=== PATIENT | female | born 1955 | race Caucasian/White ===

== ENCOUNTER → 2016-08-01 | Outpatient (CLI) | payer MEDICARE ==
--- NOTE | 2016-08-01 14:09 | MM ---
Reason for exam: screening (asymptomatic). Last mammogram was performed 2 years and 9 months ago. History: Patient is postmenopausal and history of other cancer. Family history of breast cancer in paternal aunt. Cyst aspiration of the right breast. Took hormonal contraceptives for 10 years beginning at age 15. Physical Findings: A clinical breast exam by your physician is recommended on an annual basis and results should be correlated with mammographic findings. MG 3D Screening Mammo W/Cad Bilateral CC and MLO view(s) were taken. Prior study comparison: November 02, 2013, bilateral MG screening mammo w CAD. June 26, 2009, bilateral digital screening mammogram. The breast tissue is heterogeneously dense. This may lower the sensitivity of mammography. Benign calcifications. There is chronic nodularity bilaterally. There is no dominant lesion. No significant changes when compared with prior studies. ASSESSMENT: Benign, BI-RAD 2 RECOMMENDATION: Routine screening mammogram of both breasts in 1 year.
== END ==
LOC: RADMAMWWP 09:07
PROVIDERS: ATTEND Family Medicine
DX: Z12.31 Encounter for screening mammogram for malignant neoplasm of breast (principal)
CPT/HCPCS: 77063; G0202

== ENCOUNTER 2016-11-05 07:51 | Day surgery (SDC) | payer MEDICARE ==
[2016-10-31 13:55] VITALS: BMI 33.5
[~2016-11-05 07:51] MED LIST: DEXAMETHASONE SOD PHOSPHATE 10 MG/ML 1 ML VIAL IV ONE; HYDROmorphone 1 MG/ML 1 ML SYRINGE IVP PRN; LACTATED RINGERS 1,000 ML IV SCH; ONDANSETRON 4 MG/2 ML VIAL IVP ONE
[2016-11-05 08:05] VITALS: RESP 16; TEMP 96.8
[2016-11-05] MEDS ORDERED: LIDOCAINE 1% 20 ML VIAL (10MG/ML) FOR IV START INTRADERMA ONE (08:06)
[2016-11-05] MEDS ORDERED: LIDOCAINE 1% INJ 10MG/ML (20 ML MDV) ONE (09:14)
[2016-11-05] MEDS ORDERED: PROPOFOL 10 MG/ML 20 ML VIAL IV ONE (09:14)
[2016-11-05] MEDS ORDERED: GLUCAGON 1 MG/ML VIAL ONE (09:14)
--- NOTE | 2016-11-05 09:45 | P.OP ---
Date of Procedure: 11/05/16 Preoperative Diagnosis: Prior history ulcerative colitis Postoperative Diagnosis: Internal hemorrhoids Procedure(s) Performed: Colonoscopy with random biopsies Implants: Anesthesia: MAC Surgeon: Lainey Kidd Estimated Blood Loss (ml): 0 IV fluids (ml): 550 Pathology: other (Multiple colon biopsies) Condition: stable Disposition: PACU Indications for Procedure: History of ulcerative colitis Operative Findings: Internal hemorrhoids, mild patchy inflammation biopsies obtained Description of Procedure: The patient was taken to the endoscopy suite and following sedation rectal exam was performed. Patient was noted to have good sphincter tone no masses. Colonoscope was passed through the anus into the rectum. Was passed through the sigmoid colon up to the splenic flexure transverse colon hepatic flexure right colon down to the area of the cecum. The bowel was somewhat spastic and glucagon was given. Some mild areas of patchy inflammation were identified and multiple random cold biopsies were obtained. Biopsy was obtained at the cecal area in the right colon transverse colon 1 at 20 cm 1 at 10 cm and a rectal biopsy. The scope was retroflexed in the rectum hemorrhoidal tissue was identified. Impression/plan: 1. Prior history of ulcerative colitis no active acute inflammation of concern identified 2. Internal hemorrhoidal tissue Plan: 1. Await results of biopsy 2. Conservative management of any hemorrhoidal symptoms
--- NOTE | 2016-11-05 09:46 | P.DS ---
Providers Attending physician: Lainey Kidd Primary care physician: Lisa Shahid Plan - Discharge Summary New Discharge Prescriptions: No Action Levothyroxine Sodium [Synthroid] 75 mcg PO HS Simvastatin [Zocor] 10 mg PO HS Atenolol [Tenormin] 25 mg PO HS PARoxetine HCL [PARoxetine HCL] 40 mg PO HS LORazepam [Lorazepam] 1 mg PO DAILY PRN PRN Reason: Anxiety LORazepam [Lorazepam] 2 mg PO HS Discharge Medication List Atenolol [Tenormin] 25 mg PO HS 07/01/14 [History] LORazepam [Lorazepam] 1 mg PO DAILY PRN 07/01/14 [History] LORazepam [Lorazepam] 2 mg PO HS 07/01/14 [History] Levothyroxine Sodium [Synthroid] 75 mcg PO HS 07/01/14 [History] PARoxetine HCL [PARoxetine HCL] 40 mg PO HS 07/01/14 [History] Simvastatin [Zocor] 10 mg PO HS 07/01/14 [History] Follow up Appointment(s)/Referral(s): Lainey Kidd MD [STAFF PHYSICIAN] - 3 Days Discharge Disposition: HOME SELF-CARE
[2016-11-05 10:07] VITALS: BP 108/58; PULSE 59
== END 2016-11-05 10:25 | disposition home or self-care (01) ==
LOC: ORWHC2ENDO 07:51
PROVIDERS: ATTEND Surgery
DX: K52.89 Other specified noninfective gastroenteritis and colitis (principal); K64.8 Other hemorrhoids; K62.89 Other specified diseases of anus and rectum; F41.9 Anxiety disorder, unspecified; Z79.899 Other long term (current) drug therapy; I10 Essential (primary) hypertension; Z88.0 Allergy status to penicillin; Z88.2 Allergy status to sulfonamides
CPT/HCPCS: 88305; 45380; J1610; J2405; J2001; J2704

== ENCOUNTER 2017-02-02 15:07 | Emergency (ER) | payer MEDICARE ==
[2017-02-02 15:22] VITALS: BP 121/68; PULSE 65; RESP 16; TEMP 98
[2017-02-02] MEDS ORDERED: CLINDAMYCIN 150 MG CAP PO STA (17:20)
--- NOTE | 2017-02-02 17:41 | ED ---
ENT HPI - General Chief complaint: Dental/Oral Stated complaint: Dental Pain Time Seen by Provider: 02/02/17 17:12 Source: patient Mode of arrival: ambulatory Limitations: no limitations - History of Present Illness Initial comments: Patient is a 61-year-old female presenting to the emergency department with chief complaint of toothache and jaw pain to her left lower mouth. Patient states she has been having toothache for approximately 2 week and saw her dentist last Friday and had tooth #18 extracted. Patient states she was placed on azithromycin and given a prescription for hydrocodone. Patient is concerned because she is still having pain in the area of where the tooth was extracted. Patient denies recent fevers, chills, nausea, vomiting, shortness of breath, chest pain, or abdominal pain. Patient denies diarrhea or constipation. Patient denies ear pain or ear fullness. Patient denies gum swelling. Patient denies trismus. Patient states she took [place] this morning with minimal relief. Patient is currently rating her dental pain 7 out of 10, described as aching. - Related Data Home Medications Medication Instructions Recorded Confirmed Atenolol [Tenormin] 25 mg PO HS 07/01/14 11/05/16 LORazepam [Lorazepam] 1 mg PO DAILY PRN 07/01/14 11/05/16 LORazepam [Lorazepam] 2 mg PO HS 07/01/14 11/05/16 Levothyroxine Sodium [Synthroid] 75 mcg PO HS 07/01/14 11/05/16 PARoxetine HCL [PARoxetine HCL] 40 mg PO HS 07/01/14 11/05/16 Simvastatin [Zocor] 10 mg PO HS 07/01/14 11/05/16 Previous Rx's Medication Instructions Recorded Clindamycin [Cleocin] 450 mg PO Q8H #29 capsule 02/02/17 HYDROcodone/APAP 5-325MG [[place] 1 tab PO Q6H PRN #12 tab 02/02/17 5-325] Allergies Allergy/AdvReac Type Severity Reaction Status Date / Time Penicillins Allergy Rash/Hives Verified 02/02/17 15:22 Sulfa (Sulfonamide Allergy Rash/Hives Verified 02/02/17 15:22 Antibiotics) venom-honey bee Allergy Anaphylaxis Verified 02/02/17 15:22 [bee venom (honey bee)] Review of Systems ROS Statement: Those systems with pertinent positive or pertinent negative responses have been documented in the HPI. ROS Other: All systems not noted in ROS Statement are negative. Past Medical History Past Medical History: Fibromyalgia, Hyperlipidemia, Hypertension, Osteoarthritis (OA), Thyroid Disorder Additional Past Medical History / Comment(s): ULCERATIVE COLITIS History of Any Multi-Drug Resistant Organisms: None Reported Past Surgical History: Tonsillectomy, Tubal Ligation, Uterine Ablation Additional Past Surgical History / Comment(s): COLONOSCOPY. EGD Past Anesthesia/Blood Transfusion Reactions: No Reported Reaction Past Psychological History: Anxiety Smoking Status: Never smoker Past Drug Use History: None Reported General Exam Limitations: no limitations General appearance: alert, in no apparent distress Head exam: Present: atraumatic, normocephalic, normal inspection Eye exam: Present: normal appearance. Absent: scleral icterus, conjunctival injection, nystagmus, periorbital swelling, periorbital tenderness ENT exam: Present: normal oropharynx, mucous membranes moist, TM's normal bilaterally, normal external ear exam Expanded Mouth exam: Present: tongue normal. Absent: drooling, trismus Teeth exam: Present: other (Tenderness to previous tooth extraction at #18. No evidence of abscess or erythema.) Throat exam: normal inspection. negative: tonsillar erythema, tonsillomegaly, tonsillar exudate, R peritonsillar mass, L peritonsillar mass Neck exam: Present: normal inspection, full ROM. Absent: tenderness, meningismus, lymphadenopathy Respiratory exam: Present: normal lung sounds bilaterally. Absent: respiratory distress, wheezes, rales, rhonchi, chest wall tenderness Cardiovascular Exam: Present: regular rate, normal rhythm, normal heart sounds. Absent: systolic murmur GI/Abdominal exam: Present: soft, normal bowel sounds. Absent: distended, tenderness Neurological exam: Present: alert, oriented X3, normal gait Psychiatric exam: Present: normal affect, normal mood Skin exam: Present: warm, dry, intact, normal color Course Vital Signs 02/02/17 15:18 Temperature 98.0 F Pulse Rate 65 Respiratory 16 Rate Blood Pressure 121/68 O2 Sat by Pulse 96 Oximetry Medical Decision Making - Medical Decision Making Dental pain to previous #18 tooth extraction. No evidence of abscess. Patient provided with prescription for clindamycin 450 mg by mouth 3 times a day for 10 days. Patient instructed to follow-up with dentist in next 24-48 hours and continue pain medicine compresses as needed. Patient instructed to return to the emergency department with any new or worsening symptoms. Patient agrees to treatment plan. Disposition Clinical Impression: Toothache Disposition: HOME SELF-CARE Condition: Good Instructions: Toothache (ED) Additional Instructions: Continue clindamycin 450 mg orally 3 times daily for 10 days. Continue Tylenol for mild pain or [place] for moderate to severe pain as needed. Apply warm compresses to area of discomfort for pain relief. Please follow-up with dentist in next 24-48 hours. Please return to the emergency department with any new or worsening symptoms. Prescriptions: Clindamycin [Cleocin] 450 mg PO Q8H #29 capsule HYDROcodone/APAP 5-325MG [[place] 5-325] 1 tab PO Q6H PRN #12 tab PRN Reason: Pain Referrals: Lisa Shahid MD [Primary Care Provider] - 1-2 days Time of Disposition: 17:24
== END 2017-02-02 17:40 | disposition home or self-care (01) ==
LOC: EC 15:07
DX: K08.89 Other specified disorders of teeth and supporting structures (principal); E78.5 Hyperlipidemia, unspecified; I10 Essential (primary) hypertension; E07.9 Disorder of thyroid, unspecified; F41.9 Anxiety disorder, unspecified; Z88.0 Allergy status to penicillin; Z88.2 Allergy status to sulfonamides; Z91.030 Bee allergy status; Z79.899 Other long term (current) drug therapy
CPT/HCPCS: 99282

== ENCOUNTER 2017-08-03 09:32 | Inpatient (IN) | payer MEDICARE ==
[2017-08-03] MEDS ORDERED: RX INFO: IV CONTRAST WAS GIVEN 1 EACH MISC MISCELLANE PRN (09:42)
[2017-08-03] MEDS ORDERED: DICYCLOMINE 10 MG/ML 2 ML AMP IM STA (09:42)
[2017-08-03] MEDS ORDERED: SODIUM CHLORIDE 0.9% 2,000 ML IV STA (09:42)
[2017-08-03] MEDS ORDERED: PANTOPRAZOLE 40 MG/10 ML VIAL IVP STA (09:42)
--- NOTE | 2017-08-03 09:54 | ED ---
Abdominal Pain HPI - General Chief Complaint: Abdominal Pain Stated Complaint: Abd Pain Time Seen by Provider: 08/03/17 09:42 Source: patient, EMS, RN notes reviewed Mode of arrival: EMS Limitations: no limitations - History of Present Illness Initial Comments: 61-year-old female presents emergency Department chief complaint of abdominal pain. Patient states that she has extensive history of ulcer colitis. Patient states she's been Pristiq over the last 7 years she did have colonoscopy approximately one year ago which showed mild inflammation. Patient states was last week she's having worsening pain, mild rectal bleeding consistent with her ulcerative colitis since her blood. Patient states that she went and saw a new DrLucrecia and requested steroids. She was placed on 40 mg of steroids that time. Patient states that his help his symptoms because a high enough dose. Patient says she is having worsening left-sided abdominal pain. No recent imaging. Patient doesn't fevers, chills. Patient doesn't this finger for a couple headache or dizziness. She's had a prior tubal ligation other abdominal surgeries. Patient has seen Dr. Huynh in the past. - Related Data Home Medications Medication Instructions Recorded Confirmed Atenolol [Tenormin] 25 mg PO HS 07/01/14 11/05/16 LORazepam [Lorazepam] 1 mg PO DAILY PRN 07/01/14 11/05/16 LORazepam [Lorazepam] 2 mg PO HS 07/01/14 11/05/16 Levothyroxine Sodium [Synthroid] 75 mcg PO HS 07/01/14 11/05/16 PARoxetine HCL [PARoxetine HCL] 40 mg PO HS 07/01/14 11/05/16 Simvastatin [Zocor] 10 mg PO HS 07/01/14 11/05/16 Previous Rx's Medication Instructions Recorded Clindamycin [Cleocin] 450 mg PO Q8H #29 capsule 02/02/17 HYDROcodone/APAP 5-325MG [[place] 1 tab PO Q6H PRN #12 tab 02/02/17 5-325] Allergies Allergy/AdvReac Type Severity Reaction Status Date / Time Penicillins Allergy Rash/Hives Verified 02/02/17 15:22 Sulfa (Sulfonamide Allergy Rash/Hives Verified 02/02/17 15:22 Antibiotics) venom-honey bee Allergy Anaphylaxis Verified 02/02/17 15:22 [bee venom (honey bee)] Review of Systems ROS Statement: Those systems with pertinent positive or pertinent negative responses have been documented in the HPI. ROS Other: All systems not noted in ROS Statement are negative. Past Medical History Past Medical History: Fibromyalgia, Hyperlipidemia, Hypertension, Osteoarthritis (OA), Thyroid Disorder Additional Past Medical History / Comment(s): ULCERATIVE COLITIS History of Any Multi-Drug Resistant Organisms: None Reported Past Surgical History: Tonsillectomy, Tubal Ligation, Uterine Ablation Additional Past Surgical History / Comment(s): COLONOSCOPY. EGD Past Anesthesia/Blood Transfusion Reactions: No Reported Reaction Past Psychological History: Anxiety Smoking Status: Never smoker Past Alcohol Use History: None Reported Past Drug Use History: Marijuana General Exam Limitations: no limitations General appearance: alert, in no apparent distress Head exam: Present: atraumatic, normocephalic, normal inspection Eye exam: Present: normal appearance, PERRL, EOMI. Absent: scleral icterus, conjunctival injection, periorbital swelling ENT exam: Present: normal exam, normal oropharynx, mucous membranes moist Neck exam: Present: normal inspection. Absent: tenderness, meningismus, lymphadenopathy Respiratory exam: Present: normal lung sounds bilaterally. Absent: respiratory distress, wheezes, rales, rhonchi, stridor Cardiovascular Exam: Present: regular rate, normal rhythm, normal heart sounds. Absent: systolic murmur, diastolic murmur, rubs, gallop, clicks GI/Abdominal exam: Present: soft, tenderness (Moderate tenderness left-sided abdominal pain), normal bowel sounds. Absent: distended, guarding, rebound, rigid Back exam: Absent: CVA tenderness (R), CVA tenderness (L) Skin exam: Present: warm, dry, intact, normal color. Absent: rash Course Vital Signs 08/03/17 09:37 Temperature 97.7 F Pulse Rate 58 L Respiratory 16 Rate Blood Pressure 138/78 O2 Sat by Pulse 96 Oximetry Medical Decision Making - Medical Decision Making 61-year-old female presented for abdominal pain. Patient has also colitis active flare. Patient be admitted for IV steroids and she failed outpatient treatment and oral steroids. Patient will have consult to Dr. Huynh and who she seen in the past. - Lab Data Result diagrams: 08/03/17 09:58 08/03/17 09:58 Lab Results 04/15/18 04/15/18 04/15/18 Range/Units 09:58 09:58 09:58 WBC 17.4 H (3.8-10.6) k/uL RBC 4.88 (3.80-5.40) m/uL Hgb 15.1 (11.4-16.0) gm/dL Hct 44.8 (34.0-46.0) % MCV 91.9 (80.0-100.0) fL MCH 31.0 (25.0-35.0) pg MCHC 33.7 (31.0-37.0) g/dL RDW 13.2 (11.5-15.5) % Plt Count 398 (150-450) k/uL Neutrophils % 82 % Lymphocytes % 11 % Monocytes % 4 % Eosinophils % 1 % Basophils % 0 % Neutrophils # 14.4 H (1.3-7.7) k/uL Lymphocytes # 2.0 (1.0-4.8) k/uL Monocytes # 0.7 (0-1.0) k/uL Eosinophils # 0.3 (0-0.7) k/uL Basophils # 0.1 (0-0.2) k/uL PT (9.0-12.0) sec INR (<1.2) APTT (22.0-30.0) sec Sodium 146 H (137-145) mmol/L Potassium 3.9 (3.5-5.1) mmol/L Chloride 102 (98-107) mmol/L Carbon Dioxide 30 (22-30) mmol/L Anion Gap 14 mmol/L BUN 20 H (7-17) mg/dL Creatinine 0.84 (0.52-1.04) mg/dL Est GFR (CKD-EPI)AfAm 88 (>60 ml/min/1.73 sqM) Est GFR (CKD-EPI)NonAf 76 (>60 ml/min/1.73 sqM) Glucose 112 H (74-99) mg/dL Plasma Lactic Acid [place] 1.7 (0.7-2.0) mmol/L Calcium 10.0 (8.4-10.2) mg/dL Total Bilirubin 0.6 (0.2-1.3) mg/dL AST 18 (14-36) U/L ALT 20 (9-52) U/L Alkaline Phosphatase 72 (38-126) U/L Total Protein 7.3 (6.3-8.2) g/dL Albumin 4.0 (3.5-5.0) g/dL Amylase 44 (30-110) U/L Lipase 110 (23-300) U/L 08/03/17 Range/Units 09:58 WBC (3.8-10.6) k/uL RBC (3.80-5.40) m/uL Hgb (11.4-16.0) gm/dL Hct (34.0-46.0) % MCV (80.0-100.0) fL MCH (25.0-35.0) pg MCHC (31.0-37.0) g/dL RDW (11.5-15.5) % Plt Count (150-450) k/uL Neutrophils % % Lymphocytes % % Monocytes % % Eosinophils % % Basophils % % Neutrophils # (1.3-7.7) k/uL Lymphocytes # (1.0-4.8) k/uL Monocytes # (0-1.0) k/uL Eosinophils # (0-0.7) k/uL Basophils # (0-0.2) k/uL PT 10.4 (9.0-12.0) sec INR 1.1 (<1.2) APTT 20.0 L (22.0-30.0) sec Sodium (137-145) mmol/L Potassium (3.5-5.1) mmol/L Chloride (98-107) mmol/L Carbon Dioxide (22-30) mmol/L Anion Gap mmol/L BUN (7-17) mg/dL Creatinine (0.52-1.04) mg/dL Est GFR (CKD-EPI)AfAm (>60 ml/min/1.73 sqM) Est GFR (CKD-EPI)NonAf (>60 ml/min/1.73 sqM) Glucose (74-99) mg/dL Plasma Lactic Acid [place] (0.7-2.0) mmol/L Calcium (8.4-10.2) mg/dL Total Bilirubin (0.2-1.3) mg/dL AST (14-36) U/L ALT (9-52) U/L Alkaline Phosphatase (38-126) U/L Total Protein (6.3-8.2) g/dL Albumin (3.5-5.0) g/dL Amylase (30-110) U/L Lipase (23-300) U/L Disposition Clinical Impression: Exacerbation of ulcerative colitis, Abdominal pain, Failure of outpatient treatment Disposition: ADMITTED IP TO THIS HOSP Condition: Stable Referrals: Stephen Liao DO [Primary Care Provider] - 1-2 days
[2017-08-03 10:15] LABS: Basophils # (A) 0.1 k/uL (0-0.2); Basophils % (A) 0 %; Eosinophils # (A) 0.3 k/uL (0-0.7); Eosinophils % (A) 1 %; HCT 44.8 % (34.0-46.0); HGB 15.1 gm/dL (11.4-16.0); Lymphocytes % (A) 11 %; MCHC 33.7 g/dL (31.0-37.0); MCV 91.9 fL (80.0-100.0); Mean Platelet Volume 7.1; Monocytes # (A) 0.7 k/uL (0-1.0); Monocytes % (A) 4 %; Neutrophils # (A) 14.4 k/uL (1.3-7.7); Neutrophils % (A) 82 %; Platelet Count 398 k/uL (150-450); RBC 4.88 m/uL (3.80-5.40); RDW 13.2 % (11.5-15.5); WBC 17.4 k/uL (3.8-10.6)
[2017-08-03 10:26] LABS: Potassium 3.9 mmol/L (3.5-5.1); Total Bilirubin 0.6 mg/dL (0.2-1.3); Total Protein 7.3 g/dL (6.3-8.2)
[2017-08-03 10:30] LABS: INR 1.1 (<1.2); Prothrombin Time 10.4 sec (9.0-12.0)
--- NOTE | 2017-08-03 10:44 | CT ---
EXAMINATION TYPE: CT abdomen pelvis w con DATE OF EXAM: 08/03/2017 REFERENCE: NONE HISTORY: abdominal pain HISTORY: ulcerative colitis, bloody stools CT DLP: 870.1 mGy Automated exposure control for dose reduction was used. TECHNIQUE: Helical acquisition through the abdomen and pelvis was obtained following the oral ingesti on of without Oral Contrast and following intravenous administration of 100 mL of Isovue 300. The aleksandar a was reformatted in axial, coronal and sagittal projections. FINDINGS: Visualized portions of the lungs are clear. There is no pleural or pericardial fluid. The heart is not enlarged. Within the abdomen, the liver is enlarged measuring 19 cm. The liver is fatty infiltrated. The spleen and gallbladder are normal. Both adrenal glands appear normal. The pancreas is unremarkable. There is a 6.6 cm simple appearing cyst seen arising from the lower pole of the left kidney. There is a smaller 9 mm low attenuating lesion in the mid polar region of the right kidney. Overall the noncy stic portion of the left kidney is moderately smaller than the right kidney. There is mild atheromatous calcification of the visualized arterial tree including the coronary arter ies. There is no significant retroperitoneal, iliac or inguinal adenopathy. The bladder is not distended. The uterus and ovaries appear normal. There is diffuse mucosal thickening throughout the colon. The appendix has a normal appearance. There is some mucosal thickening involving the distal ileum. The remainder the small bowel is of norm al caliber. No significant free fluid and no free air is seen. No bony lesion is identified. There are moderate degenerative changes in both hips. IMPRESSION: 1. DIFFUSE COLONIC MUCOSAL THICKENING. 2. SOME THICKENING OF THE DISTAL ILEUM. 3. HEPATOMEGALY AND FATTY INFILTRATION OF THE LIVER. 4. CYSTIC CHANGE WITHIN THE LEFT KIDNEY AND PROBABLE SMALL CYST IN THE RIGHT KIDNEY, TOO SMALL TO PAUL RACTERIZE.
[2017-08-03] MEDS ORDERED: methylPREDNISolone SOD SUCCI 125 MG/2 ML VIAL IV STA (11:09)
[2017-08-03] MEDS ORDERED: LORazepam 2 MG/ML INJ IV PRN (11:10)
[2017-08-03] MEDS ORDERED: NALOXONE 0.4 MG/ML 1 ML VIAL IV PRN (11:10)
[2017-08-03] MEDS: SODIUM CHLORIDE 0.9% 1,000 ML IV SCH (11:18)
[2017-08-03] MEDS: MORPHINE SULFATE 4MG/4ML SYRG IV PRN ×3 (12:34→20:54)
[2017-08-03] MEDS ORDERED: busPIRone HCl 5 MG TAB PO PRN (12:53)
[2017-08-03] MEDS ORDERED: HYDROcodone/APAP 5-325MG 1 EACH TAB PO PRN (12:54)
--- NOTE | 2017-08-03 14:45 | P.HPIM ---
History of Present Illness 61-year-old female came in with the severe crampy abdominal pain patient does have history of ulcerative colitis and was on Imuran which she hasn't been taking lately as she lost her insurance and patient is presently on Medicare. Patient was also having occasional blood in the stools patient did 3 loose stools in with severe crampy abdominal pain yesterday and today morning patient CAT scan of the abdomen did show diffuse colonic mucosal thickening along with thickening of distal ileum consistent with exacerbation of ulcerative colitis. Patient was seen recently in PCPs office was evaluated by PA, patient requested for prednisone and pain medications which are not given but blood tests were opted at that time which showed leukocytosis and she was told by PA that she needs antibiotics. Although patient does not appear to be any antibiotics at this time. Patient had any fever chills no other signs or symptoms of infection at this time. Review of Systems REVIEW OF SYSTEMS: CONSTITUTIONAL: No fever, no malaise, no fatigue. HEENT: No recent visual problems or hearing problems. Denied any sore throat. CARDIOVASCULAR: No chest pain, orthopnea, PND, no palpitations, no syncope. PULMONARY: No shortness of breath, no cough, no hemoptysis. GASTROINTESTINAL: As described in HPI NEUROLOGICAL: No headaches, no weakness, no numbness. HEMATOLOGICAL: Denies any bleeding or petechiae. GENITOURINARY: Denies any burning micturition, frequency, or urgency. MUSCULOSKELETAL/RHEUMATOLOGICAL: Denies any joint pain, swelling, or any muscle pain. ENDOCRINE: Denies any polyuria or polydipsia. The rest of the 14-point review of systems is negative. Past Medical History Past Medical History: Fibromyalgia, Hyperlipidemia, Hypertension, Osteoarthritis (OA), Thyroid Disorder Additional Past Medical History / Comment(s): ULCERATIVE COLITIS. RHEUMATIC FEVER DID NOT CAUSE CARDIAC DAMAGE History of Any Multi-Drug Resistant Organisms: None Reported Past Surgical History: Adenoidectomy, Tonsillectomy, Tubal Ligation, Uterine Ablation Additional Past Surgical History / Comment(s): COLONOSCOPY. EGD. RIGHT HAND TENDONITIS SURGERY Past Anesthesia/Blood Transfusion Reactions: No Reported Reaction Past Psychological History: Anxiety Smoking Status: Never smoker Past Alcohol Use History: None Reported Past Drug Use History: Marijuana Additional Drug Use History / Comment(s): SMOKES MARIJUANA 4-5 TIMES WEEKLY- HAS MEDICAL MARIJUANA CARD Medications and Allergies Home Medications Medication Instructions Recorded Confirmed Type Atenolol [Tenormin] 25 mg PO HS 07/01/14 08/03/17 History LORazepam [Lorazepam] 1 mg PO BID 07/01/14 08/03/17 History LORazepam [Lorazepam] 2 mg PO HS 07/01/14 08/03/17 History Levothyroxine Sodium [Synthroid] 75 mcg PO DAILY 07/01/14 08/03/17 History PARoxetine HCL [PARoxetine HCL] 60 mg PO HS 07/01/14 08/03/17 History Simvastatin [Zocor] 10 mg PO HS 07/01/14 08/03/17 History Calcium Carbonate [Tums] 500 mg PO TID PRN 08/03/17 08/03/17 History EPINEPHrine (Auto Inject) [Epipen] 0.3 mg IM ONCE PRN 08/03/17 08/03/17 History predniSONE See Taper PO DAILY 08/03/17 08/03/17 History Allergies Allergy/AdvReac Type Severity Reaction Status Date / Time Penicillins Allergy Rash/Hives Verified 08/03/17 13:03 Sulfa (Sulfonamide Allergy Rash/Hives Verified 08/03/17 13:03 Antibiotics) venom-honey bee Allergy Anaphylaxis Verified 08/03/17 13:03 [bee venom (honey bee)] Physical Exam Vitals: Vital Signs Temp Pulse Resp BP Pulse Ox 08/03/17 11:23 98.0 F 58 L 16 98/56 98 08/03/17 09:37 97.7 F 58 L 16 138/78 96 Intake and Output 08/02/17 08/03/17 08/03/17 22:59 06:59 14:59 Intake Total 225 Balance 225 Intake: Intake, IV Titration 225 Amount Sodium Chloride 0.9% 1, 225 000 ml @ 75 mls/hr IV . [id number] [facility] Rx#:[id number] Other: Weight 87 kg PHYSICAL EXAMINATION: GENERAL: The patient is alert and oriented x3, not in any acute distress. Well developed, well nourished. HEENT: Pupils are round and equally reacting to light. EOMI. No scleral icterus. No conjunctival pallor. Normocephalic, atraumatic. No pharyngeal erythema. No thyromegaly. CARDIOVASCULAR: S1 and S2 present. No murmurs, rubs, or gallops. PULMONARY: Chest is clear to auscultation, no wheezing or crackles. ABDOMEN: Soft, mild diffuse abdominal tenderness, nondistended, normoactive bowel sounds. No palpable organomegaly. MUSCULOSKELETAL: No joint swelling or deformity. EXTREMITIES: No cyanosis, clubbing, or pedal edema. NEUROLOGICAL: Gross neurological examination did not reveal any focal deficits. SKIN: No rashes. Results CBC & Chem 7: 08/03/17 09:58 08/03/17 09:58 Labs: Abnormal Lab Results - Last 24 Hours (Table) 08/03/17 08/03/17 08/03/17 Range/Units 09:58 09:58 09:58 WBC 17.4 H (3.8-10.6) k/uL Neutrophils # 14.4 H (1.3-7.7) k/uL APTT 20.0 L (22.0-30.0) sec Sodium 146 H (137-145) mmol/L BUN 20 H (7-17) mg/dL Glucose 112 H (74-99) mg/dL Thrombosis Risk Factor Assmnt - Choose All That Apply Any of the Below Risk Factors Present?: Yes Each Factor Represents 1 point: Age 41-60 years Other Risk Factors: Yes Thrombosis Risk Factor Assessment Total Risk Factor Score: 1 Thrombosis Risk Factor Assessment Level: Low Risk Assessment and Plan Plan: -Abdominal pain: Probably secondary to ulcerative colitis exacerbation patient was given IV steroids patient will be started on 20 twice a day F oral steroids , gastric body was consulted. -Fibromyalgia -Hyperlipidemia -Hypertension -Osteoarthritis -Hypothyroidism For above-mentioned chronic medical problems patient will be resumed on appropriate home medications and will continued
[2017-08-03] MEDS: NYSTATIN 100,000 UNIT/ML SUSP 500,000 UNIT/5 ML CUP PO SCH ×3 (15:32→20:57)
[2017-08-03] MEDS: PARoxetine 20 MG TAB PO SCH (20:56)
[2017-08-03] MEDS: ATORVASTATIN 10 MG TAB PO SCH (20:56)
[2017-08-03] MEDS: LEVOTHYROXINE 75 MCG TAB PO SCH (20:57)
[2017-08-03] MEDS: DICYCLOMINE 10 MG CAP PO PRN (20:59)
[2017-08-03] MEDS: predniSONE 20 MG TAB PO SCH (21:07)
[2017-08-03] MEDS: HYDROcodone/APAP 5-325MG 1 EACH TAB PO PRN (23:15)
[2017-08-03 23:27] LABS: Appearance,Urine Clear (Clear); Bilirubin,Urine Negative (Negative); Blood,Urine Negative (Negative); Color,Urine Yellow; Glucose,Urine (UA) Negative (Negative); Ketones,Urine Negative (Negative); Leukocyte Esterase,Urine Negative (Negative); Nitrite,Urine Negative (Negative); Protein,Urine Trace (Negative); Specific Gravity,Urine 1.043 (1.001-1.035); Urobilinogen,Urine <2.0 mg/dL (<2.0)
[2017-08-04] MEDS ORDERED: ACETAMINOPHEN TAB 325 MG TAB PO PRN (02:06)
[2017-08-04] MEDS: HYDROcodone/APAP 5-325MG 1 EACH TAB PO PRN ×4 (02:25→20:01)
[2017-08-04] MEDS: SODIUM CHLORIDE 0.9% 1,000 ML IV SCH ×2 (02:28→14:23)
--- NOTE | 2017-08-04 04:50 | P.CONS ---
History of Present Illness - Reason for Consult Consult date: 08/03/17 Colitis - History of Present Illness The patient is a 61-year-old female who presented to the emergency room with abdominal pains, loose stools and occasional bleeding. The patient had history of colitis but was knocked on any treatment until recently when she was started on steroids by her primary physician. The patient was not given pain medications and as she continued to have cramps and loose stools with intermittent bleeding, she came to the emergency room for evaluation. CT of the abdomen showed diffuse thickening of the colon and terminal ileum. The patient has not been on any treatment over the years and has not had regular follow-up because of insurance issues. She had a colonoscopy in October of last year that showed mild changes with biopsies in various areas of the colon showing minimal changes. The patient denied nausea, vomiting, hematemesis or melena. She has fibromyalgia but is not experiencing any extraintestinal manifestations of inflammatory bowel disease. There is history of for antibiotic use around 3 months ago for tooth infection. She had no bowel movement since she was admitted early this morning. Review of Systems Constitutional: Denies fever, chills, sweats, weight gain, or loss. HEENT: Negative for migraines, blurred vision or loss, earaches, drainage, tinnitus, oral mucosal lesions, dysphagia, or odynophagia. CARDIAC: Negative for chest pain, arrhythmias, or palpitation. RESPIRATORY: Negative for shortness of breath, hemoptysis, cough, or sputum production. GI: See HPI for pertinent findings. : Negative for hematuria, urgency, frequency, polyuria, or dysuria. MUSCULOSKELETAL: Negative for muscle aches, swelling, arthritis, and arthralgias. NEUROLOGIC: Negative for stroke or TIA. ENDOCRINE: Negative for thyroid problems. SKIN: Negative for rash or itching. PSYCHIATRIC: Negative history for depression and anxiety Past Medical History Past Medical History: Fibromyalgia, Hyperlipidemia, Hypertension, Osteoarthritis (OA), Thyroid Disorder Additional Past Medical History / Comment(s): ULCERATIVE COLITIS. RHEUMATIC FEVER DID NOT CAUSE CARDIAC DAMAGE History of Any Multi-Drug Resistant Organisms: None Reported Past Surgical History: Adenoidectomy, Tonsillectomy, Tubal Ligation, Uterine Ablation Additional Past Surgical History / Comment(s): COLONOSCOPY. EGD. RIGHT HAND TENDONITIS SURGERY Past Anesthesia/Blood Transfusion Reactions: No Reported Reaction Past Psychological History: Anxiety Smoking Status: Never smoker Past Alcohol Use History: None Reported Past Drug Use History: Marijuana Additional Drug Use History / Comment(s): SMOKES MARIJUANA 4-5 TIMES WEEKLY- HAS MEDICAL MARIJUANA CARD Medications and Allergies Home Medications Medication Instructions Recorded Confirmed Type Atenolol [Tenormin] 25 mg PO HS 07/01/14 08/03/17 History LORazepam [Lorazepam] 1 mg PO BID 07/01/14 08/03/17 History LORazepam [Lorazepam] 2 mg PO HS 07/01/14 08/03/17 History Levothyroxine Sodium [Synthroid] 75 mcg PO DAILY 07/01/14 08/03/17 History PARoxetine HCL [PARoxetine HCL] 60 mg PO HS 07/01/14 08/03/17 History Simvastatin [Zocor] 10 mg PO HS 07/01/14 08/03/17 History Calcium Carbonate [Tums] 500 mg PO TID PRN 08/03/17 08/03/17 History EPINEPHrine (Auto Inject) [Epipen] 0.3 mg IM ONCE PRN 08/03/17 08/03/17 History predniSONE See Taper PO DAILY 08/03/17 08/03/17 History Allergies Allergy/AdvReac Type Severity Reaction Status Date / Time Penicillins Allergy Rash/Hives Verified 08/03/17 13:03 Sulfa (Sulfonamide Allergy Rash/Hives Verified 08/03/17 13:03 Antibiotics) venom-honey bee Allergy Anaphylaxis Verified 08/03/17 13:03 [bee venom (honey bee)] Physical Exam Vitals: Vital Signs Temp Pulse Pulse Resp BP BP Pulse Ox 08/03/17 15:00 98.3 F 47 L 16 96/58 96 08/03/17 12:00 97.2 F L 49 L 16 110/60 97 08/03/17 11:23 98.0 F 58 L 16 98/56 98 08/03/17 09:37 97.7 F 58 L 16 138/78 96 Intake and Output 08/03/17 08/03/17 08/03/17 06:59 14:59 22:59 Intake Total 225 Balance 225 Intake: Intake, IV Titration 225 Amount Sodium Chloride 0.9% 1, 225 000 ml @ 75 mls/hr IV . [id number] [facility] Rx#:[id number] Other: Weight 87 kg General appearance: The patient is alert, oriented, in no acute distress. HET: Head is normocephalic and atraumatic. Conjunctivae pink, sclerae not icteric. Pupils are equal and reactive. Oropharynx is clear without lesions. Neck: Supple without lymphadenopathy. Trachea midline. Heart: S1 S2. Regular rate and rhythm. Lungs: No crackles or wheezes are heard. Abdomen: Soft, nondistended bowel sounds present. Mild direct tenderness, diffuse, but no guarding or rebound. No palpable organomegaly or masses. Extremities: Normal skin color and turgor. No cyanosis, rash, ulceration, clubbing, or edema. Radial and pedal pulses are 2/4 bilaterally. Neurological: No focal deficits. Strength and sensation are grossly intact. Results CBC & Chem 7: 08/03/17 09:58 08/03/17 09:58 Labs: Abnormal Lab Results - Last 24 Hours (Table) 08/03/17 08/03/17 08/03/17 Range/Units 09:58 09:58 09:58 WBC 17.4 H (3.8-10.6) k/uL Neutrophils # 14.4 H (1.3-7.7) k/uL APTT 20.0 L (22.0-30.0) sec Sodium 146 H (137-145) mmol/L BUN 20 H (7-17) mg/dL Glucose 112 H (74-99) mg/dL Assessment and Plan Assessment: The presentation of this patient and her history are consistent with exacerbation of chronic ulcerative colitis. With the wall thickness of the terminal ileum in addition to the colon on CT, the possibility of Crohn's disease should be kept in mind. Other etiology, including infectious causes, superimposed on chronic inflammatory bowel disease should be considered as well. Plan: Agree with your current management. Will order stool studies if she has further diarrhea. I would consider repeat colonoscopy for evaluation of the colon and terminal ileum and to guide her therapy based on her course in the next day or 2.
[2017-08-04 06:18] VITALS: RESP 16
[2017-08-04] MEDS: predniSONE 20 MG TAB PO SCH ×2 (08:27→21:54)
[2017-08-04] MEDS: PANTOPRAZOLE 40 MG/10 ML VIAL IV SCH (08:27)
[2017-08-04] MEDS: NYSTATIN 100,000 UNIT/ML SUSP 500,000 UNIT/5 ML CUP PO SCH ×4 (08:27→21:54)
[2017-08-04] MEDS ORDERED: MORPHINE ORAL SOLN 10 MG/5 ML CUP PO PRN (09:08)
[2017-08-04 09:11] LABS: Basophils % (A) 0 %; Eosinophils # (A) 0.2 k/uL (0-0.7); Eosinophils % (A) 1 %; HCT 42.5 % (34.0-46.0); HGB 13.6 gm/dL (11.4-16.0); Lymphocytes % (A) 5 %; MCV 93.5 fL (80.0-100.0); Mean Platelet Volume 7.3; Monocytes # (A) 0.4 k/uL (0-1.0); Monocytes % (A) 2 %; Neutrophils % (A) 92 %; Platelet Count 361 k/uL (150-450); RBC 4.54 m/uL (3.80-5.40); RDW 13.2 % (11.5-15.5); WBC 21.6 k/uL (3.8-10.6)
[2017-08-04 09:40] LABS: Anion Gap 12 mmol/L; Blood Urea Nitrogen 16 mg/dL (7-17); Calcium 9.2 mg/dL (8.4-10.2); Carbon Dioxide 26 mmol/L (22-30); Chloride 107 mmol/L (98-107); Glucose 153 mg/dL (74-99); Magnesium 2.2 mg/dL (1.6-2.3); Potassium 4.5 mmol/L (3.5-5.1); Sodium 145 mmol/L (137-145)
--- NOTE | 2017-08-04 10:32 | P.PN ---
Subjective Progress Note Date: 08/04/17 Principal diagnosis: Bloody diarrhea abdominal pain Admitted with abdominal pain bloody diarrhea history of ulcerative colitis. No further bowel movements since yesterday morning. Stool studies not collected secondary to absence of diarrhea. White count 21.6. Receiving intravenous steroids as well as oral prednisone twice daily. Hemoglobin this morning 13.6. Minimal abdominal discomfort. Last colonoscopy 10 months ago biopsies report mild changes in various areas of the colon. There is a history of familial Crohn's disease; her son. Patient was experiencing decreased heart rate in the 30s after receiving intravenous morphine; morphine has been discontinued. Heart rate in the high 40s this morning. Presently denies chest pain or shortness of breath. Objective - Vital Signs Vital signs: Vital Signs Temp 96.5 F L 08/04/17 05:33 Pulse 38 L 08/04/17 05:33 Resp 16 08/04/17 05:33 BP 113/60 08/04/17 05:33 Pulse Ox 93 L 08/04/17 05:33 Intake & Output 08/03/17 08/04/17 08/04/17 18:59 06:59 18:59 Intake Total 225 Balance 225 Weight 87 kg Intake: Intake, IV Titration 225 Amount Sodium Chloride 0.9% 1, 225 000 ml @ 75 mls/hr IV . [id number] [facility] Rx#:[id number] Other: Voiding Method Toilet # Voids 3 - Exam General appearance: The patient is alert, oriented, in no acute distress. HET: Head is normocephalic and atraumatic. Pupils are equal and reactive. Oropharynx is clear without lesions. Neck: Supple without lymphadenopathy. Trachea midline. Heart: S1 S2. Regular rate and rhythm. Lungs: No crackles or wheezes are heard. Abdomen: Soft, mild tenderness bilateral lower abdomen, nondistended with bowel sounds. No peritoneal signs. No palpable organomegaly or masses. Extremities: Normal skin color and turgor. No cyanosis, rash, ulceration, clubbing, or edema. Radial and pedal pulses are 2/4 bilaterally. Neurological: No focal deficits. Strength and sensation are grossly intact. - Labs CBC & Chem 7: 08/04/17 08:54 08/04/17 08:54 Labs: Abnormal Lab Results - Last 24 Hours (Table) 08/03/17 08/03/17 08/03/17 Range/Units 09:58 09:58 23:17 WBC (3.8-10.6) k/uL Neutrophils # (1.3-7.7) k/uL APTT 20.0 L (22.0-30.0) sec Sodium 146 H (137-145) mmol/L BUN 20 H (7-17) mg/dL Glucose 112 H (74-99) mg/dL C-Reactive Protein (<10.0) mg/L Ur Specific Ma[place] 1.043 H (1.001-1.035) Urine Protein Trace H (Negative) 08/04/17 08/04/17 08/04/17 Range/Units 08:54 08:54 08:54 WBC 21.6 H (3.8-10.6) k/uL Neutrophils # 20.0 H (1.3-7.7) k/uL APTT (22.0-30.0) sec Sodium (137-145) mmol/L BUN (7-17) mg/dL Glucose 153 H (74-99) mg/dL C-Reactive Protein 16.8 H (<10.0) mg/L Ur Specific [place] (1.001-1.035) Urine Protein (Negative) Assessment and Plan (1) Abdominal pain Narrative/Plan: Possible exacerbation of ulcerative colitis with superimposed viral possible infectious gastroenteritis. The possibility of underlying Crohn's disease cannot be entirely excluded with distal small bowel changes inflammation on CT. Current Visit: Yes Status: Acute Code(s): R10.9 - UNSPECIFIED ABDOMINAL PAIN SNOMED Code(s): 93370956 (2) Hematochezia Current Visit: Yes Status: Acute Code(s): K92.1 - MELENA SNOMED Code(s): 466350143 (3) Exacerbation of ulcerative colitis Current Visit: Yes Status: Acute Code(s): K51.90 - ULCERATIVE COLITIS, UNSPECIFIED, WITHOUT COMPLICATIONS SNOMED Code(s): 260313980 (4) Bradycardia Narrative/Plan: Possible morphine-induced. Current Visit: Yes Status: Acute Code(s): R00.1 - BRADYCARDIA, UNSPECIFIED SNOMED Code(s): 34833113 Plan: 1. Recommend inpatient colonoscopy with terminal ileum biopsies rule out active IBD/Crohn's disease. 2. CRP sed rate. 3. Continue clear liquid diet nothing by mouth after midnight. 4. Continue with oral prednisone for now further recommendations forthcoming after endoscopic evaluation. The insurance rater has discussed the risks, benefits and alternative therapies for the above-mentioned procedure and for both sedation/analgesia as well as necessary blood product administration, if indicated, as they pertain to this patient. The patient has indicated understanding and acceptance of the risks and procedures discussed. Assessment and plan a care discussed with Dr. Balderrama
[2017-08-04] MEDS: ONDANSETRON 4 MG/2 ML VIAL IVP PRN ×2 (14:37→20:01)
[2017-08-04] MEDS ORDERED: PEG 3350-NA SULF,BICARB,CL/KCL 4,000 ML BOTTLE PO ONE (15:00)
[2017-08-04] MEDS: DICYCLOMINE 10 MG CAP PO PRN (18:36)
--- NOTE | 2017-08-04 19:46 | PN ---
PROGRESS NOTE DATE OF SERVICE: August 04, 2017. PRESENTING COMPLAINT: Abdominal pain. INTERVAL HISTORY: This is a patient presented with ulcerative colitis, increasing stool, but no more diarrhea since admission. Patient due for a colonoscopy tomorrow. CT scan showed thickening of the colon. The patient does get pain in different joints. REVIEW OF SYSTEMS: Done for constitutional, cardiovascular, GI, pulmonary, musculoskeletal and relevant findings as above. The patient does include a hand, hips and elbows. CURRENT MEDICATIONS: Reviewed that include: Oral prednisone and IV fluids. PHYSICAL EXAMINATION: Afebrile. Pulse 40, respirations 16, blood pressure 113/60, pulse ox 93% on room air. General appearance: Average build, lying in bed, comfortable. Eyes: Pupils equal, conjunctivae normal. HEENT: External appearance of nose and ears normal. Oral cavity normal. Neck JVD not raised. Mass not palpable. Respiratory effort lungs are clear. Cardiovascular 1st and 2nd sounds normal. No edema. ABDOMEN: Soft. Some diffuse tenderness. No guarding, rigidity. Liver and spleen not palpable. Psychiatry: Alert and oriented times three. Mood and affect normal. Musculoskeletal: No evidence of obvious inflammation, especially in the hands. INVESTIGATIONS: White count 21.6, potassium 4.5. ASSESSMENT: 1. Possible acute ulcerative colitis exacerbation. Patient is on oral steroids. Awaiting colonoscopy. 2. Leukocytosis likely from steroids. 3. Hyperlipidemia. 4. Essential hypertension. 5. Hypothyroid. 6. Anxiety, not otherwise specified. PLAN: Continue current medication and treatment plan. Care was discussed with the patient. Await colonoscopy. MMODL / IJN: [id number] /
[2017-08-04] MEDS ORDERED: MIDAZOLAM 2 MG/2 ML VIAL IV PRN (19:50)
[2017-08-04] MEDS ORDERED: fentaNYL (PF) 50 MCG/ML 2 ML AMP IV PRN (19:50)
[2017-08-04] MEDS ORDERED: BISACODYL 5 MG TABLET.DR PO STA (20:55)
[2017-08-04] MEDS: LACTATED RINGERS 1,000 ML IV SCH (21:52)
[2017-08-04] MEDS: PARoxetine 20 MG TAB PO SCH (21:53)
[2017-08-04] MEDS: ATORVASTATIN 10 MG TAB PO SCH (21:53)
[2017-08-04] MEDS: LEVOTHYROXINE 75 MCG TAB PO SCH (21:54)
[2017-08-05] MEDS: SODIUM CHLORIDE 0.9% 1,000 ML IV SCH ×2 (05:52→17:50)
[2017-08-05] MEDS: PANTOPRAZOLE 40 MG/10 ML VIAL IV SCH (08:04)
[2017-08-05] MEDS: ONDANSETRON 4 MG/2 ML VIAL IVP PRN (08:04)
[2017-08-05] MEDS: HYDROcodone/APAP 5-325MG 1 EACH TAB PO PRN ×2 (12:16→17:49)
[2017-08-05] MEDS: NYSTATIN 100,000 UNIT/ML SUSP 500,000 UNIT/5 ML CUP PO SCH ×4 (14:44→21:31)
--- NOTE | 2017-08-05 15:23 | PN ---
PROGRESS NOTE DATE OF SERVICE: 08/05/2017 PRESENTING COMPLAINT: Abdominal pain. INTERVAL HISTORY: Patient presented with abdominal pain, diarrhea, felt to be flare-up of IBD, diarrhea actually settled down, but getting a bowel prep, hence having diarrhea from the same. Abdominal pain is actually better. Some pain in the joints. Awaiting colonoscopy this morning when I saw the patient. REVIEW OF SYSTEMS: Done for constitutional, cardiovascular, GI, pulmonary, musculoskeletal; relevant findings as above. CURRENT MEDICATIONS: Reviewed that include oral prednisone. PHYSICAL EXAMINATION: Temperature 98.5, pulse 46, respirations 16, blood pressure 136/65, pulse ox 95% on room air. GENERAL APPEARANCE: Lying in bed, tired-appearing. EYES: Pupils equal, conjunctivae normal. HEENT: External appearance of nose and ears normal, oral cavity normal. NECK: JVD not raised. Mass not palpable. RESPIRATORY: Effort normal. Lungs are clear. CARDIOVASCULAR: First and second sounds normal. No edema. ABDOMEN: Soft, minimal diffuse tenderness. No guarding, rigidity. Liver and spleen not palpable. PSYCHIATRY: Alert and oriented x3. Mood and affect normal. INVESTIGATIONS: White count 21.6, potassium 4.5. BUN and creatinine are normal. ASSESSMENT: 1. Possible acute IBD flare up, pending colonoscopy on oral prednisone. 2. Leukocytosis from steroids. 3. Hyperlipidemia. 4. Essential hypertension. 5. Hypothyroid. 6. Anxiety, not otherwise specified. PLAN: Care was discussed with the patient. Await results of colonoscopy and go from there. MMODL / ANCAN: [id number] /
[2017-08-05] MEDS ORDERED: PROPOFOL 10 MG/ML 20 ML VIAL IV ONE (16:04)
[2017-08-05] MEDS ORDERED: ONDANSETRON 4 MG/2 ML VIAL ONE (16:04)
[2017-08-05] MEDS ORDERED: IV FLUID CONTINUATION 500 ML IV ONE (16:05)
--- NOTE | 2017-08-05 16:40 | P.PCN ---
Date of Procedure: 08/05/17 Procedure(s) Performed: Procedure: Colonoscopy and biopsy. Preoperative diagnosis: Abdominal pain, diarrhea and abnormal CT and history of colitis. Postoperative diagnosis: 1. Diffuse colitis with multiple ulcers covered with white exudate surrounded by normal-appearing mucosa raising the possibility of infectious colitis or Crohn's colitis. 2. Terminal ileum not involved. 3. Biopsies obtained. Preparation: GoLYTELY prep. Sedation: Was provided by anesthesia. Brief clinical history: The patient is a 61-year-old female who presented to the emergency room with abdominal pains, loose stools and occasional bleeding. The patient had history of colitis but was not on any treatment until recently when she was started on steroids by her primary physician. The patient was not given pain medications and as she continued to have cramps and loose stools with intermittent bleeding, she came to the emergency room for evaluation. CT of the abdomen showed diffuse thickening of the colon and terminal ileum. The patient has not been on any treatment over the years and has not had regular follow-up because of insurance issues. She had a colonoscopy in October of last year that showed mild changes with biopsies in various areas of the colon showing minimal changes. The patient denied nausea, vomiting, hematemesis or melena. She has fibromyalgia but is not experiencing any extraintestinal manifestations of inflammatory bowel disease. There is history of for antibiotic use around 3 months ago for tooth infection. Her C difficile test was negative. Other details are summarized in the history and physical and dictated consultations and progress notes. Procedure: With the patient on her left lateral decubitus position and after informed consent and adequate sedation, the perianal area was inspected and it did not show any fissures or fistulas. There were no masses felt on digital rectal examination. The Olympus CFQ 160L video colonoscope was then inserted in the rectum and the usual fashion and advanced to the cecum. I intubated the ileocecal valve and examined the terminal ileum. Terminal ileum was not involved. The colon in its entirety was involved with multiple scattered ulcerations of various sizes covered with exudate with normal appearing intervening mucosa. Inserted in areas the exudates mimic the appearance of C. difficile colitis. There was no spontaneous bleeding. No polyps or tumors were seen. I obtained random biopsies from the colon targeting the ulcerations. I retroflexed the endoscope before the endoscope was withdrawn. The patient tolerated the procedure well. Plan: Will await biopsy results. The patient is already on steroids. Will make further plans based on her course and pathology results. Additional stool studies will be considered.
[2017-08-05] MEDS: predniSONE 20 MG TAB PO SCH ×2 (17:50→21:31)
[2017-08-05] MEDS: LACTATED RINGERS 1,000 ML IV SCH (21:26)
[2017-08-05] MEDS: ATORVASTATIN 10 MG TAB PO SCH (21:31)
[2017-08-05] MEDS: PARoxetine 20 MG TAB PO SCH (21:31)
[2017-08-05] MEDS: LEVOTHYROXINE 75 MCG TAB PO SCH (21:31)
[2017-08-06 05:15] VITALS: PULSE 43
[2017-08-06 06:26] VITALS: BP 133/71; TEMP 98
[2017-08-06] MEDS ORDERED: PANTOPRAZOLE 40 MG TABLET PO SCH (07:30)
[2017-08-06] MEDS: NYSTATIN 100,000 UNIT/ML SUSP 500,000 UNIT/5 ML CUP PO SCH ×2 (08:49→12:53)
[2017-08-06] MEDS: SODIUM CHLORIDE 0.9% 1,000 ML IV SCH (08:49)
[2017-08-06] MEDS ORDERED: predniSONE 20 MG TAB PO SCH (09:00)
--- NOTE | 2017-08-06 09:30 | P.PN ---
Subjective Progress Note Date: 08/06/17 Principal diagnosis: Bloody diarrhea abdominal pain Admitted with abdominal pain bloody diarrhea history of ulcerative colitis. Status post colonoscopy yesterday with findings of diffuse colitis with multiple ulcers covered with white exudate surrounding by normal appearing mucosa raising the possibility of Crohn's colitis possible infectious colitis. Terminal ileum not involved. Biopsies pending. Presently she feels well. Tolerating full liquid diet. Afebrile. CBC pending. Receiving oral steroids. Objective - Vital Signs Vital signs: Vital Signs Temp 98.0 F 08/06/17 06:05 Pulse 43 L 08/06/17 06:05 Resp 16 08/06/17 06:05 BP 133/71 08/06/17 06:05 Pulse Ox 95 08/06/17 06:05 Intake & Output 08/05/17 08/06/17 08/06/17 18:59 06:59 18:59 Intake Total 900 600 Balance 900 600 Intake: IV 300 Intake, IV Titration 600 600 Amount Sodium Chloride 0.9% 1, 600 600 000 ml @ 75 mls/hr IV . [id number] [facility] Rx#:[id number] Other: # Voids 2 - Exam General appearance: The patient is alert, oriented, in no acute distress. HET: Head is normocephalic and atraumatic. Pupils are equal and reactive. Oropharynx is clear without lesions. Neck: Supple without lymphadenopathy. Trachea midline. Heart: S1 S2. Regular rate and rhythm. Lungs: No crackles or wheezes are heard. Abdomen: Soft, mild tenderness bilateral lower abdomen, nondistended with bowel sounds. No peritoneal signs. No palpable organomegaly or masses. Extremities: Normal skin color and turgor. No cyanosis, rash, ulceration, clubbing, or edema. Radial and pedal pulses are 2/4 bilaterally. Neurological: No focal deficits. Strength and sensation are grossly intact. - Labs CBC & Chem 7: 08/04/17 08:54 08/04/17 08:54 Assessment and Plan (1) Abdominal pain Narrative/Plan: History of ulcerative colitis suspect exacerbation of inflammatory bowel disease possible Crohn's colitis possible superimposed infectious colitis status post colonoscopy evaluation with biopsies terminal ileum noninvolved. Current Visit: Yes Status: Acute Code(s): R10.9 - UNSPECIFIED ABDOMINAL PAIN SNOMED Code(s): 03656097 (2) Hematochezia Current Visit: Yes Status: Acute Code(s): K92.1 - MELENA SNOMED Code(s): 514510603 (3) Exacerbation of ulcerative colitis Current Visit: Yes Status: Acute Code(s): K51.90 - ULCERATIVE COLITIS, UNSPECIFIED, WITHOUT COMPLICATIONS SNOMED Code(s): 075097678 (4) Bradycardia Current Visit: Yes Status: Acute Code(s): R00.1 - BRADYCARDIA, UNSPECIFIED SNOMED Code(s): 49459715 Plan: 1. Low residue diet as tolerated. Recommend prednisone 40 mg daily with 5 mg taper every 7 days on discharge prescription provided. Follow-up in office in 2 -3 weeks to discuss biopsy results. Discharge per medicine if WBC is improved. Assessment and plan a care discussed with Dr. Wynn.
[2017-08-06 10:13] LABS: Basophils % (A) 0 %; Eosinophils % (A) 0 %; HCT 40.5 % (34.0-46.0); HGB 13.6 gm/dL (11.4-16.0); Lymphocytes # (A) 0.9 k/uL (1.0-4.8); Lymphocytes % (A) 6 %; MCH 30.8 pg (25.0-35.0); MCHC 33.5 g/dL (31.0-37.0); MCV 92.1 fL (80.0-100.0); Mean Platelet Volume 6.9; Monocytes # (A) 0.5 k/uL (0-1.0); Monocytes % (A) 3 %; Neutrophils # (A) 12.5 k/uL (1.3-7.7); Neutrophils % (A) 90 %; Platelet Count 319 k/uL (150-450); RDW 13.1 % (11.5-15.5)
--- NOTE | 2017-08-06 23:51 | DS ---
DISCHARGE SUMMARY DATE OF ADMISSION: 08/03/2017. DATE OF DISCHARGE: 08/06/2017. FINAL DIAGNOSES: 1. Acute inflammatory bowel disease flare up. 2. Leukocytosis from steroids. 3. Hyperlipidemia. 4. Essential hypertension. 5. Hypothyroidism. 6. Anxiety, not otherwise specified. CONSULTATIONS: Dr. Wynn from GI. HOSPITAL COURSE: This patient with known diagnosis ulcerative colitis. Did follow up with Dr. Cristina in the past, did not followup for the last few years, presented with acute abdominal pain and diarrhea. The diarrhea did resolve with steroids. Colonoscopy did show a lot of inflammation. Biopsy was done, results were pending. The patient is tolerating a full liquid diet today. I did talk to Gretchen from . The patient is okay to be discharged. She is very keen to go home. Will follow up with GI as an outpatient. On exam, abdomen soft, nontender. Lungs are clear. Hemoglobin stable at 13.6. DISCHARGE MEDICATIONS: 1. Ativan 1 mg p.o. b.i.d. 2 mg at night. 2. Synthroid 75 mcg a day. 3. Paxil 60 mg at bedtime. 4. Zocor 10 mg at bedtime. 5. Tums 500 mg p.o. t.i.d. p.r.n. 6. EpiPen p.r.n. 7. Bentyl 10 mg t.i.d. p.r.n. 8. Zestoretic 09/04.5 one tablet p.o. daily. 9. Prednisone taper per GI. 10.The patient's atenolol was discontinued because of bradycardia. FOLLOWUP: 1. Follow up with Dr. Wynn on 08/21/2017. 2. Follow up with Dr. Liao on August 08, 2017. MMODL / IJN: [id number] /
== END 2017-08-06 14:43 | disposition home or self-care (01) | DRG 387 ==
LOC: EC 09:32 → 4MS4W 11:04
PROVIDERS: ADMIT Hospitalist; ATTEND Hospitalist
PROC: 0DBE8ZX Excision of Large Intestine, Via Natural or Artificial Opening Endoscopic, Diagnostic (ICD-10-PCS; principal; 2017-08-05 14:35)
DX: K51.90 Ulcerative colitis, unspecified, without complications (principal); D72.829 Elevated white blood cell count, unspecified; E03.9 Hypothyroidism, unspecified; E78.5 Hyperlipidemia, unspecified; I10 Essential (primary) hypertension; M19.91 Primary osteoarthritis, unspecified site; F41.9 Anxiety disorder, unspecified; M79.7 Fibromyalgia; R00.1 Bradycardia, unspecified; T38.0X5A Adverse effect of glucocorticoids and synthetic analogues, initial encounter; Z79.890 Hormone replacement therapy; Z79.899 Other long term (current) drug therapy; Z98.51 Tubal ligation status; Z88.0 Allergy status to penicillin; Z88.2 Allergy status to sulfonamides; Z91.030 Bee allergy status
CPT/HCPCS: 36415; 45380; 74177; 80048; 80053; 81003; 82150; 83605; 83690; 83735; 85025; 85610; 85652; 85730; 86140; 87324; 88305; 89055; 96361; 96372; 96374; 96375; 99285

== ENCOUNTER → 2017-08-13 | Outpatient (CLI) | payer MEDICARE ==
[2017-08-13 08:54] LABS: Basophils % (A) 0 %; Eosinophils # (A) 0.2 k/uL (0-0.7); Eosinophils % (A) 1 %; HCT 52.9 % (34.0-46.0); Lymphocytes # (A) 2.9 k/uL (1.0-4.8); Lymphocytes % (A) 10 %; MCH 29.6 pg (25.0-35.0); MCHC 31.8 g/dL (31.0-37.0); MCV 92.8 fL (80.0-100.0); Mean Platelet Volume 6.7; Monocytes # (A) 0.9 k/uL (0-1.0); Monocytes % (A) 3 %; Neutrophils # (A) 23.5 k/uL (1.3-7.7); Neutrophils % (A) 85 %; Platelet Count 422 k/uL (150-450); RDW 13.3 % (11.5-15.5)
[2017-08-13 08:55] LABS: HGB 16.8 gm/dL (11.4-16.0)
[2017-08-13 09:08] LABS: WBC 27.7 k/uL (3.8-10.6)
[2017-08-13 09:12] LABS: Calcium 10.4 mg/dL (8.4-10.2); Potassium 4.4 mmol/L (3.5-5.1)
== END | disposition home or self-care (01) ==
LOC: LABWHC1 08:29
PROVIDERS: ATTEND Hospitalist
DX: K52.9 Noninfective gastroenteritis and colitis, unspecified (principal)
CPT/HCPCS: 36415; 80048; 85025

== ENCOUNTER → 2017-09-23 | Outpatient (CLI) | payer MEDICARE ==
[2017-09-23 09:36] LABS: HCT 41.5 % (34.0-46.0); MCHC 32.6 g/dL (31.0-37.0); MCV 95.1 fL (80.0-100.0); Mean Platelet Volume 6.4; Platelet Count 360 k/uL (150-450); RBC 4.37 m/uL (3.80-5.40); RDW 14.2 % (11.5-15.5); WBC 19.9 k/uL (3.8-10.6)
[2017-09-23 09:37] LABS: HGB 13.5 gm/dL (11.4-16.0)
[2017-09-23 10:36] LABS: Erythrocyte Sedimentation Rate 56 mm/hr (0-20)
[2017-09-23 11:24] LABS: ALT 32 U/L (9-52); AST 16 U/L (14-36); Alkaline Phosphatase 58 U/L (38-126); Anion Gap 12 mmol/L; Blood Urea Nitrogen 15 mg/dL (7-17); C Reactive Protein 46.2 mg/L (<10.0); Calcium 9.5 mg/dL (8.4-10.2); Carbon Dioxide 30 mmol/L (22-30); Chloride 102 mmol/L (98-107); Glucose 87 mg/dL (74-99); Potassium 4.3 mmol/L (3.5-5.1); Sodium 144 mmol/L (137-145); Total Bilirubin 0.4 mg/dL (0.2-1.3); Total Protein 6.6 g/dL (6.3-8.2)
== END | disposition home or self-care (01) ==
LOC: LABWHC1 08:15
PROVIDERS: ATTEND Physician Assistant
DX: K52.9 Noninfective gastroenteritis and colitis, unspecified (principal)
CPT/HCPCS: 36415; 80053; 85027; 85652; 86140

== ENCOUNTER → 2018-05-22 | Outpatient (CLI) | payer MEDICARE, OTHER ==
--- NOTE | 2018-05-25 07:33 | MM ---
Reason for exam: screening (asymptomatic). Last mammogram was performed 1 year and 10 months ago. History: Patient is postmenopausal and history of other cancer. Family history of breast cancer in paternal aunt. Cyst aspiration of the right breast. Took hormonal contraceptives for 10 years beginning at age 15. Physical Findings: A clinical breast exam by your physician is recommended on an annual basis and results should be correlated with mammographic findings. MG 3D Screening Mammo W/Cad Bilateral CC and MLO view(s) were taken. Prior study comparison: August 01, 2016, bilateral MG 3d screening mammo w/cad. November 02, 2013, bilateral MG screening mammo w CAD. The breast tissue is heterogeneously dense. This may lower the sensitivity of mammography. Finding: There are typically benign vascular, round calcifications in both breasts. There is a chronic nodularity in the left breast. There is no new dominant lesion. ASSESSMENT: Benign, BI-RAD 2 RECOMMENDATION: Routine screening mammogram of both breasts in 1 year.
== END | disposition home or self-care (01) ==
LOC: RADMAMWWP 11:00
PROVIDERS: ATTEND Family Medicine
DX: Z12.31 Encounter for screening mammogram for malignant neoplasm of breast (principal)
CPT/HCPCS: 77063; 77067

== ENCOUNTER → 2019-02-08 | Outpatient (CLI) | payer MEDICARE ==
[2019-02-08 13:45] LABS: Basophils # (A) 0.1 k/uL (0-0.2); Basophils % (A) 1 %; Eosinophils # (A) 0.5 k/uL (0-0.7); Eosinophils % (A) 4 %; HCT 41.2 % (34.0-46.0); HGB 13.9 gm/dL (11.4-16.0); Lymphocytes # (A) 1.9 k/uL (1.0-4.8); Lymphocytes % (A) 18 %; MCH 31.9 pg (25.0-35.0); MCHC 33.8 g/dL (31.0-37.0); MCV 94.3 fL (80.0-100.0); Mean Platelet Volume 5.7; Monocytes # (A) 0.4 k/uL (0-1.0); Monocytes % (A) 4 %; Neutrophils # (A) 7.5 k/uL (1.3-7.7); Neutrophils % (A) 71 %; Platelet Count 303 k/uL (150-450); RBC 4.37 m/uL (3.80-5.40); RDW 12.8 % (11.5-15.5); WBC 10.5 k/uL (3.8-10.6)
[2019-02-08 14:53] LABS: Erythrocyte Sedimentation Rate 14 mm/hr (0-20)
[2019-02-08 18:42] LABS: ALT 21 U/L (8-44); AST 28 U/L (13-35); African American GFR (CKD) 92.2 (60.0-200.0); Albumin/Globulin Ratio 1.92 (1.60-3.17); Alkaline Phosphatase 62 U/L (41-126); BUN/Creat Ratio 13.75 Ratio (12.00-20.00); C Reactive Protein <0.4 mg/dL (0.0-0.8); Carbon Dioxide 28.1 mmol/L (21.6-31.8); Chloride 107 mmol/L (96-109); Globulin 2.4 g/dL (1.6-3.3); Glucose 98 mg/dL (70-110); Non-African American GFR(CKD) 79.6 (60.0-200.0); Potassium 4.3 mmol/L (3.5-5.5); Sodium 140 mmol/L (135-145); Total Bilirubin 0.8 mg/dL (0.3-1.2)
== END ==
LOC: LABWHC1 12:02
DX: K52.9 Noninfective gastroenteritis and colitis, unspecified (principal)
CPT/HCPCS: 36415; 80053; 85025; 85652; 86140

== ENCOUNTER 2019-10-20 12:30 | Inpatient (IN) | payer MEDICARE ==
[2019-10-20] MEDS ORDERED: IV FLUID CONTINUATION 1,000 ML IV ONE (13:03)
[2019-10-20] MEDS ORDERED: LIDOCAINE 1% INJ 10MG/ML (10 ML MDV) SQ ONE (13:13)
[2019-10-20] MEDS ORDERED: BIVALIRUDIN BOLUS 250 MG/50 ML IV ONE (13:20)
[2019-10-20] MEDS ORDERED: BIVALIRUDIN 250 MG in SODIUM CHLORIDE 0.9% 50 ML IV ONE (13:21)
[2019-10-20] MEDS ORDERED: NITROGLYCERIN 1000MCG/10ML SYRINGE INTRACORON ONE (13:27)
[2019-10-20] MEDS ORDERED: IOPAMIDOL-370 100ML BTL INJ ONE ×2 (13:33→13:58)
[2019-10-20] MEDS: MIDAZOLAM 2 MG/2 ML VIAL IV ONE ×2 (13:36→13:57)
[2019-10-20] MEDS ORDERED: NITROGLYCERIN SL TABS 0.4 MG TAB SUBLINGUAL PRN (14:14)
[2019-10-20] MEDS ORDERED: ZOLPIDEM 5 MG TAB PO PRN (14:14)
[2019-10-20] MEDS ORDERED: ATROPINE SULFATE 0.1 MG/ML 10ML SYRINGE IV PRN (14:14)
[2019-10-20] MEDS ORDERED: RX INFO: IV CONTRAST WAS GIVEN 1 EACH MISC MISCELLANE PRN (14:14)
[2019-10-20] MEDS ORDERED: MAG HYDROX/AL HYDROX/SIMETH 30 ML CUP PO PRN (14:14)
[2019-10-20] MEDS ORDERED: SODIUM CHLORIDE 0.9% 1,000 ML IV SCH (14:15)
[2019-10-20] MEDS: traMADol 50 MG TAB PO PRN ×2 (14:30→20:11)
--- NOTE | 2019-10-20 18:27 | PTCA ---
PERCUTANEOUSTRANS CORORONARY ANGIOGRAPHY DATE OF SERVICE: 10/20/2019 Mrs. Hidalgo is a 64-year-old female who presented to [facility] with non-ST- segment-elevation myocardial infarction, underwent cardiac catheterization, was found to have critical stenosis involving the first diagonal branch as well as the mid LAD. In view of that, recommendation was made regarding angioplasty and stenting. The procedure, its risks and complications were discussed with the patient, who was in full understanding and agreement. 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 Using guidewire exchange technique, the 6-Tongan sheath in the right radial artery was exchanged for a 6-Tongan sheath. Following that, a 6-Tongan EBU 3.75 guiding catheter was introduced into the system. After cannulating the left main, a 0.014 balanced medium weight J-wire was advanced across the diagonal branch, positioned distally. Following that, a 0.014 balanced medium weight J-wire was advanced and positioned in distal LAD. Subsequently a 2.25 x 12 mm Trek balloon was advanced and 2 inflations in the diagonal branch were performed. Following that, the balloon was removed and a 2.25 x 18 mm Xience Mariana stent was deployed and post-dilated at 16 atmospheres. Following that, the balloon was removed and a 2.75 x 28 mm Xience Mariana stent was advanced in the LAD, deployed and post-dilated after removing the wire of the diagonal branch. It was post-dilated at 16 atmospheres. Following that, a 3.0 x 15 mm NC Trek balloon was advanced and an inflation at the distal segment of the stent at 16 atmospheres was done. That balloon was removed and a 3.25 x 12 mm NC Trek balloon was advanced and an inflation up to 18 atmospheres was done. Following that the balloon was removed and a 3.5 x 8 mm NC Trek balloon was advanced, and multiple inflations to a maximum of 14 atmospheres were done. After the last inflation, after appropriate wait, the balloon and the guidewire were withdrawn back into the guiding catheter. Images were obtained and repeated. Those images revealed stable successful stenting. At that point, the guiding catheter, the balloon and the guidewire were removed. The sheath was removed. Hemostasis was obtained with deployment of a TR band. There was no immediate complication. Patient was returned to her room in stable condition. Of note, the patient received Angiomax per protocol. She received clopidogrel at [facility]. She had chest discomfort with the inflation that resolved at the end of the procedure with mild EKG changes that resolved as well. RESULTS: 1. Successful stenting of the first diagonal branch with reduction of stenosis from 99% to 0%. 2. Successful stenting of a long segment of the mid LAD with reduction of stenosis from 80% to less than 5%. RECOMMENDATIONS: Patient will be continued on aspirin, Plavix, beta kristin, Aricept and statin. The importance of dual antiplatelet treatment was discussed with the patient. He is in full understanding and agreement. Duration of procedure was 45 minutes. MMODL / ANCAN: [id number] /
--- NOTE | 2019-10-20 18:27 | LTR ---
October 20, 2019 To: Dr. Krunal Cook Re: Kamini Hidalgo (59) Dear Dr. Cook, I had the pleasure of performing cardiac catheterization and coronary angioplasty and stenting on Mrs. Hidalgo on October 19. A full copy of the procedure note will be forwarded to you. In brief, she was found to have critical stenosis involving the mid LAD and the first diagonal branch. She underwent stenting of both vessels. I am hopeful that this procedure will stabilize her status. Thank you again for allowing me to participate in her care. Please feel free to call for any questions. Sincerely yours, Kiesha Arriaga M.D. SAVANAH / JOHN: [id number] /
[2019-10-20] MEDS: LISINOPRIL 5 MG TAB PO SCH (20:11)
[2019-10-20] MEDS: METOPROLOL TARTRATE 25 MG TAB PO SCH (20:11)
[2019-10-20] MEDS ORDERED: LORazepam 1 MG TAB PO SCH (21:00)
[2019-10-20] MEDS ORDERED: PARoxetine 20 MG TAB PO SCH (21:00)
[2019-10-20] MEDS ORDERED: ATORVASTATIN 80 MG TAB PO SCH (21:00)
[2019-10-21 03:30] VITALS: TEMP 98.5
[2019-10-21] MEDS ORDERED: LEVOTHYROXINE 75 MCG TAB PO SCH (06:30)
--- NOTE | 2019-10-21 07:38 | PN ---
PROGRESS NOTE Mrs. Hidalgo is a 64-year-old female who presented to [facility] with non ST- segment elevation myocardial infarction, underwent cardiac catheterization, was found to have critical stenosis in the diagonal branch and the LAD underwent stenting of both vessels. She is doing well this morning. Her breathing is stable. She denies any chest pain. No dizziness. No palpitation. She denies any nausea. She continued to be on aspirin once a day, Plavix 75 mg daily, Lipitor 80 mg daily, lisinopril 5 mg twice a day, metoprolol tartrate 25 mg twice a day. PHYSICAL EXAMINATION: Blood pressure 130/80 with the heart rate in the 70s. LUNGS: Clear. HEART: Regular rate and rhythm. S1, S2. No S3. No rub. ABDOMEN: Soft, nontender. EXTREMITIES: No edema. Right radial pulse intact. EKG revealed no acute changes. IMPRESSION: 1. Status post non ST-segment elevation myocardial infarction with stenting of the left anterior descending artery and the diagonal branch. 2. Hyperlipidemia. RECOMMENDATION: Patient will be discharged home today and followed as an outpatient by Dr. Cook and Dr. Gonzalez. MMTAYLORL / ANCAN: [id number] /
[2019-10-21 07:51] LABS: African American GFR (CKD) >90 (>60 ml/min/1.73 sqM); Anion Gap 6 mmol/L; Blood Urea Nitrogen 8 mg/dL (7-17); Carbon Dioxide 26 mmol/L (22-30); Chloride 109 mmol/L (98-107); Glucose 107 mg/dL (74-99); Non-African American GFR(CKD) >90 (>60 ml/min/1.73 sqM); Potassium 4.7 mmol/L (3.5-5.1); Sodium 141 mmol/L (137-145)
[2019-10-21] MEDS ORDERED: CLOPIDOGREL 75 MG TAB PO SCH (09:00)
[2019-10-21] MEDS ORDERED: ASPIRIN 81 MG PO SCH (09:00)
[2019-10-21] MEDS: METOPROLOL TARTRATE 25 MG TAB PO SCH (09:22)
[2019-10-21] MEDS: LISINOPRIL 5 MG TAB PO SCH (09:22)
[2019-10-21] MEDS ORDERED: PANTOPRAZOLE 40 MG/10 ML VIAL IVP SCH (10:45)
[2019-10-21 11:14] VITALS: BP 121/59; PULSE 69; RESP 16
--- NOTE | 2019-10-21 11:39 | P.DS ---
Providers Date of admission: 10/20/19 12:49 Attending physician: Chayo Freire Consults: 10/20/19 14:14 Consult Physician Routine Consulting Provider: [facility] Consult Reason/Comments: Post Interventional patient Do you want consulting provider notified?: Already Contacted Primary care physician: Chayo Freire [facility] Course: as mentioned in HPI Plan - Discharge Summary Discharge Rx Participant: Yes New Discharge Prescriptions: New Aspirin 81 mg PO DAILY chew Atorvastatin [Lipitor] 80 mg PO HS #90 tab Metoprolol Tartrate [Lopressor] 25 mg PO BID #180 tab Nitroglycerin Sl Tabs [Nitrostat] 0.4 mg SUBLINGUAL Q5M PRN #25 tab PRN Reason: Chest Pain Clopidogrel [Plavix] 75 mg PO DAILY #90 tab Lisinopril [Zestril] 5 mg PO DAILY #90 tab Famotidine [Pepcid] 20 mg PO BID #20 tablet Discontinued Simvastatin [Zocor] 10 mg PO HS No Action PARoxetine HCL 60 mg PO HS LORazepam [Lorazepam] 1 mg PO BID PRN PRN Reason: Anxiety LORazepam [Lorazepam] 2 mg PO HS EPINEPHrine (Auto Inject) [Epipen] 0.3 mg IM ONCE PRN PRN Reason: Anaphylaxis Levothyroxine Sodium [Synthroid] 100 mcg PO HS Mesalamine [Lialda] 3.6 gm PO HS traMADol HCL 50 - 100 mg PO TID PRN PRN Reason: Pain Discharge Medication List LORazepam [Lorazepam] 1 mg PO BID PRN 07/01/14 [History] LORazepam [Lorazepam] 2 mg PO HS 07/01/14 [History] PARoxetine HCL 60 mg PO HS 07/01/14 [History] EPINEPHrine (Auto Inject) [Epipen] 0.3 mg IM ONCE PRN 08/03/17 [History] Levothyroxine Sodium [Synthroid] 100 mcg PO HS 10/20/19 [History] Mesalamine [Lialda] 3.6 gm PO HS 10/20/19 [History] traMADol HCL 50 - 100 mg PO TID PRN 10/20/19 [History] Aspirin 81 mg PO DAILY chew 10/21/19 [Rx] Atorvastatin [Lipitor] 80 mg PO HS #90 tab 10/21/19 [Rx] Clopidogrel [Plavix] 75 mg PO DAILY #90 tab 10/21/19 [Rx] Famotidine [Pepcid] 20 mg PO BID #20 tablet 10/21/19 [Rx] Lisinopril [Zestril] 5 mg PO DAILY #90 tab 10/21/19 [Rx] Metoprolol Tartrate [Lopressor] 25 mg PO BID #180 tab 10/21/19 [Rx] Nitroglycerin Sl Tabs [Nitrostat] 0.4 mg SUBLINGUAL Q5M PRN #25 tab 10/21/19 [Rx] Follow up Appointment(s)/Referral(s): Kaleb Gonzalez MD [STAFF PHYSICIAN] - 1 Week Krunal Cook MD [REFERRING] - 1 Week Discharge Disposition: HOME SELF-CARE
--- NOTE | 2019-10-21 11:39 | P.HPIM ---
History of Present Illness 64-year-old pleasant female was transferred from [facility] after she presented there with non-ST elevation microinfarction patient underwent cardiac catheterization today found to have critical stenosis of diagonal branch LAD underwent stenting of both of these results. Patient is clinically doing well without any chest pain no shortness of breath. Patient is cleared by cardiology will be discharged today. Patient also is complaining of epigastric abdominal discomfort along with nausea predominantly with food Review of Systems REVIEW OF SYSTEMS: CONSTITUTIONAL: No fever, no malaise, no fatigue. HEENT: No recent visual problems or hearing problems. Denied any sore throat. CARDIOVASCULAR: No chest pain, orthopnea, PND, no palpitations, no syncope. PULMONARY: No shortness of breath, no cough, no hemoptysis. GASTROINTESTINAL: as mentioned in HPI NEUROLOGICAL: No headaches, no weakness, no numbness. HEMATOLOGICAL: Denies any bleeding or petechiae. GENITOURINARY: Denies any burning micturition, frequency, or urgency. MUSCULOSKELETAL/RHEUMATOLOGICAL: Denies any joint pain, swelling, or any muscle pain. ENDOCRINE: Denies any polyuria or polydipsia. The rest of the 14-point review of systems is negative. Past Medical History Past Medical History: Fibromyalgia, Hyperlipidemia, Hypertension, Osteoarthritis (OA), Thyroid Disorder Additional Past Medical History / Comment(s): ULCERATIVE COLITIS. RHEUMATIC FEVER DID NOT CAUSE CARDIAC DAMAGE History of Any Multi-Drug Resistant Organisms: None Reported Past Surgical History: Adenoidectomy, Tonsillectomy, Tubal Ligation, Uterine Ablation Additional Past Surgical History / Comment(s): COLONOSCOPY. EGD. RIGHT HAND TENDONITIS SURGERY Past Anesthesia/Blood Transfusion Reactions: No Reported Reaction Past Psychological History: Anxiety Smoking Status: Never smoker Past Alcohol Use History: None Reported Past Drug Use History: Marijuana Additional Drug Use History / Comment(s): SMOKES MARIJUANA 4-5 TIMES WEEKLY- HAS MEDICAL MARIJUANA CARD - Past Family History Mother Family Medical History: Dementia Medications and Allergies Home Medications Medication Instructions Recorded Confirmed Type LORazepam [Lorazepam] 1 mg PO BID PRN 07/01/14 10/20/19 History LORazepam [Lorazepam] 2 mg PO HS 07/01/14 10/20/19 History PARoxetine HCL 60 mg PO HS 07/01/14 10/20/19 History EPINEPHrine (Auto Inject) [Epipen] 0.3 mg IM ONCE PRN 08/03/17 10/20/19 History Levothyroxine Sodium [Synthroid] 100 mcg PO HS 10/20/19 10/20/19 History Mesalamine [Lialda] 3.6 gm PO HS 10/20/19 10/20/19 History traMADol HCL 50 - 100 mg PO TID PRN 10/20/19 10/20/19 History Aspirin 81 mg PO DAILY chew 10/21/19 Rx Atorvastatin [Lipitor] 80 mg PO HS #90 tab 10/21/19 Rx Clopidogrel [Plavix] 75 mg PO DAILY #90 tab 10/21/19 Rx Famotidine [Pepcid] 20 mg PO BID #20 tablet 10/21/19 Rx Lisinopril [Zestril] 5 mg PO DAILY #90 tab 10/21/19 Rx Metoprolol Tartrate [Lopressor] 25 mg PO BID #180 tab 10/21/19 Rx Nitroglycerin Sl Tabs [Nitrostat] 0.4 mg SUBLINGUAL Q5M PRN #25 tab 10/21/19 Rx Allergies Allergy/AdvReac Type Severity Reaction Status Date / Time Penicillins Allergy Rash/Hives Verified 10/20/19 18:00 Sulfa (Sulfonamide Allergy Rash/Hives Verified 10/20/19 18:00 Antibiotics) venom-honey bee Allergy Anaphylaxis Verified 10/20/19 18:00 [bee venom (honey bee)] Physical Exam Vitals: Vital Signs Temp Pulse Pulse Resp BP Pulse Ox 10/21/19 09:00 98.5 F 69 16 121/59 91 L 10/21/19 08:00 98.5 F 69 16 121/59 91 L 10/21/19 03:25 98.5 F 74 17 109/56 95 10/21/19 01:45 98.0 F 90 17 130/80 96 10/20/19 23:46 98.7 F 60 16 118/64 95 10/20/19 20:00 98.4 F 61 14 125/73 94 L 10/20/19 16:59 58 L 18 129/72 97 10/20/19 15:15 68 16 133/77 94 L 10/20/19 14:50 70 16 140/85 95 10/20/19 14:35 70 16 133/81 95 10/20/19 14:20 64 16 150/87 94 L Intake and Output 10/20/19 10/21/19 10/21/19 22:59 06:59 14:59 Intake Total 710 540 120 Balance 710 540 120 Intake: IV 350 Sodium Chloride 0.9% 1, 350 000 ml @ 100 mls/hr IV . Q10H [facility] Rx#:[id number] Oral 360 540 120 Other: Voiding Method Toilet Toilet Toilet Weight 97.7 kg PHYSICAL EXAMINATION: GENERAL: The patient is alert and oriented x3, not in any acute distress. Well developed, well nourished. HEENT: Pupils are round and equally reacting to light. EOMI. No scleral icterus. No conjunctival pallor. Normocephalic, atraumatic. No pharyngeal erythema. No thyromegaly. CARDIOVASCULAR: S1 and S2 present. No murmurs, rubs, or gallops. PULMONARY: Chest is clear to auscultation, no wheezing or crackles. ABDOMEN: Soft, nontender, nondistended, normoactive bowel sounds. No palpable organomegaly. MUSCULOSKELETAL: No joint swelling or deformity. EXTREMITIES: No cyanosis, clubbing, or pedal edema. NEUROLOGICAL: Gross neurological examination did not reveal any focal deficits. SKIN: No rashes. Results CBC & Chem 7: 10/21/19 07:00 Labs: Abnormal Lab Results - Last 24 Hours (Table) 10/21/19 Range/Units 07:00 Chloride 109 H (98-107) mmol/L Glucose 107 H (74-99) mg/dL Thrombosis Risk Factor Assmnt - Choose All That Apply Each Factor Represents 1 point: Acute NV Each Risk Factor Represents 2 Points: Age 61-74 years Thrombosis Risk Factor Assessment Total Risk Factor Score: 3 Thrombosis Risk Factor Assessment Level: Moderate Risk Assessment and Plan Plan: -acute non-ST elevation microinfarction: Patient is status post cardiac catheterization and stenting of LAD and diagonal branch.patient is being discharged on a statin beta kristin. Antiplatelet therapy. -Possible gastritis or peptic ulcer disease: Considering that the proton pump inhibitors we will decrease the efficacy of commendation of aspirin and Plavix, patient will be discharged on Pepcid patient will be given a dose of Protonix here for symptoms. Better few days after discharge asked her to stop Pepcid as well. -fibromyalgia -Hypertension Hypothyroidism -Hyperlipidemia -Marijuana use: Counseling was provided For above-mentioned chronic medical problems patient will be resumed on appropriate home medications will be discharged today
[2019-10-21 11:40] VITALS: BMI 33.7
== END 2019-10-21 12:40 | disposition home or self-care (01) | DRG 247 ==
LOC: 3SCARD 12:49
PROVIDERS: ADMIT Hospitalist; ATTEND Hospitalist
PROC: 027135Z Dilation of Coronary Artery, Two Arteries with Two Drug-eluting Intraluminal Devices, Percutaneous Approach (ICD-10-PCS; principal; 2019-10-20 13:00)
DX: I21.4 Non-ST elevation (NSTEMI) myocardial infarction (principal); K51.90 Ulcerative colitis, unspecified, without complications; E03.9 Hypothyroidism, unspecified; E78.5 Hyperlipidemia, unspecified; F41.9 Anxiety disorder, unspecified; I10 Essential (primary) hypertension; I25.10 Atherosclerotic heart disease of native coronary artery without angina pectoris; M79.7 Fibromyalgia; M15.9 Polyosteoarthritis, unspecified; F32.9 Major depressive disorder, single episode, unspecified; N28.1 Cyst of kidney, acquired; Z87.891 Personal history of nicotine dependence; Z79.899 Other long term (current) drug therapy; Z79.890 Hormone replacement therapy; Z98.51 Tubal ligation status; Z88.6 Allergy status to analgesic agent; Z88.0 Allergy status to penicillin; Z88.2 Allergy status to sulfonamides
CPT/HCPCS: 80048; 85347

== ENCOUNTER 2020-01-31 19:47 | Observation (INO) | payer MEDICARE, OTHER ==
[2020-01-31 20:25] LABS: Basophils # (A) 0.1 k/uL (0-0.2); Basophils % (A) 1 %; Eosinophils # (A) 0.5 k/uL (0-0.7); Eosinophils % (A) 6 %; HCT 40.3 % (34.0-46.0); HGB 13.5 gm/dL (11.4-16.0); Lymphocytes # (A) 1.5 k/uL (1.0-4.8); Lymphocytes % (A) 17 %; MCH 31.7 pg (25.0-35.0); MCHC 33.5 g/dL (31.0-37.0); MCV 94.5 fL (80.0-100.0); Mean Platelet Volume 7.2; Monocytes # (A) 0.5 k/uL (0-1.0); Monocytes % (A) 5 %; Neutrophils # (A) 5.8 k/uL (1.3-7.7); Neutrophils % (A) 69 %; Platelet Count 257 k/uL (150-450); RBC 4.26 m/uL (3.80-5.40); RDW 12.9 % (11.5-15.5); WBC 8.4 k/uL (3.8-10.6)
[2020-01-31] MEDS ORDERED: MORPHINE SULFATE 4 MG/ML SYRINGE IVP STA (20:26)
[2020-01-31] MEDS ORDERED: PANTOPRAZOLE 40 MG/10 ML VIAL IVP STA (20:26)
[2020-01-31] MEDS ORDERED: NITROGLYCERIN OINT 1 INCH/GM PACKET TOPICAL STA (20:26)
[2020-01-31] MEDS ORDERED: SODIUM CHLORIDE 0.9% 1,000 ML IV ONE (20:30)
--- NOTE | 2020-01-31 20:30 | ED ---
Chest Pain HPI - General Chief Complaint: Chest Pain Stated Complaint: Chest Pain Time Seen by Provider: 01/31/20 19:58 Source: patient, RN notes reviewed, old records reviewed Mode of arrival: EMS Limitations: no limitations - History of Present Illness Initial Comments: Patient is a pleasant 64-year-old female presents emergency from today with onset of chest pain starting at 7 PM. She reports as a sharp pain, and later a dull burning pain. Reports similar to previous heart attack. She has had previous cardiac stenting in October of this year. Patient states that she is compliant with her medications including Plavix. She denies any current shortness of breath. She does state she's been more fatigued over the past few weeks. Patient reports that she did take an aspirin and nitro with minimal relief prior to arrival. - Related Data Home Medications Medication Instructions Recorded Confirmed LORazepam [Lorazepam] 1 mg PO BID PRN 07/01/14 10/20/19 LORazepam [Lorazepam] 2 mg PO HS 07/01/14 10/20/19 PARoxetine HCL 60 mg PO HS 07/01/14 10/20/19 EPINEPHrine (Auto Inject) [Epipen] 0.3 mg IM ONCE PRN 08/03/17 10/20/19 Levothyroxine Sodium [Synthroid] 100 mcg PO HS 10/20/19 10/20/19 Mesalamine [Lialda] 3.6 gm PO HS 10/20/19 10/20/19 traMADol HCL 50 - 100 mg PO TID PRN 10/20/19 10/20/19 Previous Rx's Medication Instructions Recorded Aspirin 81 mg PO DAILY chew 10/21/19 Atorvastatin [Lipitor] 80 mg PO HS #90 tab 10/21/19 Clopidogrel [Plavix] 75 mg PO DAILY #90 tab 10/21/19 Famotidine [Pepcid] 20 mg PO BID #20 tablet 10/21/19 Metoprolol Tartrate [Lopressor] 25 mg PO BID #180 tab 10/21/19 Nitroglycerin Sl Tabs [Nitrostat] 0.4 mg SUBLINGUAL Q5M PRN #25 tab 10/21/19 lisinopriL [Zestril] 5 mg PO DAILY #90 tab 10/21/19 Allergies Allergy/AdvReac Type Severity Reaction Status Date / Time Penicillins Allergy Rash/Hives Verified 10/20/19 18:00 Sulfa (Sulfonamide Allergy Rash/Hives Verified 10/20/19 18:00 Antibiotics) venom-honey bee Allergy Anaphylaxis Verified 10/20/19 18:00 [bee venom (honey bee)] Review of Systems ROS Statement: Those systems with pertinent positive or pertinent negative responses have been documented in the HPI. ROS Other: All systems not noted in ROS Statement are negative. Past Medical History Past Medical History: Fibromyalgia, Hyperlipidemia, Hypertension, Osteoarthritis (OA), Thyroid Disorder Additional Past Medical History / Comment(s): ULCERATIVE COLITIS. RHEUMATIC FEVER DID NOT CAUSE CARDIAC DAMAGE History of Any Multi-Drug Resistant Organisms: None Reported Past Surgical History: Adenoidectomy, Tonsillectomy, Tubal Ligation, Uterine Ablation Additional Past Surgical History / Comment(s): COLONOSCOPY. EGD. RIGHT HAND TENDONITIS SURGERY Past Anesthesia/Blood Transfusion Reactions: No Reported Reaction Past Psychological History: Anxiety Smoking Status: Former smoker Past Alcohol Use History: None Reported Past Drug Use History: Marijuana - Past Family History Mother Family Medical History: Dementia General Exam - General Exam Comments Initial Comments: 64 year old female, no distress. Limitations: no limitations General appearance: alert, in no apparent distress Head exam: Present: atraumatic, normocephalic, normal inspection Eye exam: Present: normal appearance, PERRL, EOMI. Absent: scleral icterus, conjunctival injection, periorbital swelling ENT exam: Present: normal exam, mucous membranes moist Neck exam: Present: normal inspection. Absent: tenderness, meningismus, lymphadenopathy Respiratory exam: Present: normal lung sounds bilaterally. Absent: respiratory distress, wheezes, rales, rhonchi, stridor Cardiovascular Exam: Present: regular rate, normal rhythm, normal heart sounds. Absent: systolic murmur, diastolic murmur, rubs, gallop, clicks GI/Abdominal exam: Present: soft, normal bowel sounds. 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 Symptoms starting at 7 PM. She reports it felt similar to previous heart attacks. At this time patient's EKG was reviewed t changes. Patient's previous stenting was done in October of this year and she had a stent placed in the LAD and diagonal branch. Patient's chemistry panels and troponin are initially negative. Chest x-rays reviewed and negative for any acute c ardiopulmonary process. I discussed the case with Dr. HAWKINS patient's current chest pain history of PA and painful similar to previous PA discussed keeping the Patient for observation. Repeat troponins. Patient's case was then discussed with Dr. Fontaine. EKG performed at 1957 shows normal sinus rhythm with voltage QRS. Borderline EKG. Ventricular rate 64 bpm. Patient was 126 ms. QRS ration 76 ms. QT QTc 4 05/25/2013 milliseconds. Disposition Clinical Impression: Chest pain Disposition: ADMITTED IP TO THIS HOSP Condition: Good Instructions (If sedation given, give patient instructions): Chest Pain (ED) Is patient prescribed a controlled substance at d/c from ED?: No Referrals: Krunal Cook MD [Primary Care Provider] - 1-2 days Time of Disposition: 21:31
[2020-01-31 20:33] LABS: ALT 33 U/L (4-34); AST 39 U/L (14-36); African American GFR (CKD) >90 (>60 ml/min/1.73 sqM); Albumin 4.4 g/dL (3.5-5.0); Alkaline Phosphatase 63 U/L (38-126); Anion Gap 7 mmol/L; Blood Urea Nitrogen 21 mg/dL (7-17); Calcium 9.5 mg/dL (8.4-10.2); Carbon Dioxide 24 mmol/L (22-30); Chloride 108 mmol/L (98-107); Glucose 116 mg/dL (74-99); Magnesium 1.9 mg/dL (1.6-2.3); Non-African American GFR(CKD) 85 (>60 ml/min/1.73 sqM); Potassium 4.3 mmol/L (3.5-5.1); Sodium 139 mmol/L (137-145); Total Protein 7.2 g/dL (6.3-8.2)
[2020-01-31 20:34] LABS: Partial Thromboplastin Time 22.4 sec (22.0-30.0); Prothrombin Time 10.7 sec (9.0-12.0)
[2020-01-31] MEDS: SODIUM CHLORIDE 0.9% 1,000 ML IV SCH (20:42)
--- NOTE | 2020-01-31 20:58 | XR ---
EXAMINATION TYPE: XR chest 2V DATE OF EXAM: 01/31/2020 COMPARISON: 09/12/2015 HISTORY: Chest pain TECHNIQUE: FINDINGS: Heart is normal. Lungs are clear. Costophrenic angles are clear. There are no hilar masses. Bony thorax is intact. IMPRESSION: No active cardiopulmonary disease. Normal heart. No change.
[2020-01-31] MEDS ORDERED: IBUPROFEN 400 MG TAB PO PRN (21:32)
[2020-01-31] MEDS ORDERED: NALOXONE 0.4 MG/ML 1 ML VIAL IV PRN (21:32)
[2020-01-31] MEDS ORDERED: ACETAMINOPHEN TAB 325 MG TAB PO PRN (21:32)
[2020-01-31] MEDS ORDERED: NITROGLYCERIN SL TABS 0.4 MG TAB SUBLINGUAL PRN (21:34)
[2020-01-31] MEDS ORDERED: FAMOTIDINE 20 MG TAB PO PRN (22:30)
[2020-01-31] MEDS ORDERED: traMADol 50 MG TAB PO PRN (23:00)
[2020-01-31] MEDS: MORPHINE SULFATE 4 MG/ML SYRINGE IV PRN (23:49)
[2020-02-01] MEDS: KETOROLAC 15 MG/ML 1 ML VIAL IVP PRN ×2 (03:03→11:56)
[2020-02-01 03:18] LABS: Cholesterol 124 mg/dL (<200); HDL Cholesterol 32 mg/dL (40-60); LDL Cholesterol,Calculated 71 mg/dL (0-99); Triglycerides 106 mg/dL (<150)
[2020-02-01] MEDS: SODIUM CHLORIDE 0.9% 1,000 ML IV SCH (06:08)
[2020-02-01] MEDS: MORPHINE SULFATE 4 MG/ML SYRINGE IV PRN ×2 (06:09→09:45)
[2020-02-01] MEDS ORDERED: LEVOTHYROXINE 100 MCG TAB PO SCH (06:30)
[2020-02-01 08:04] VITALS: TEMP 97.5
[2020-02-01] MEDS ORDERED: ALPRAZolam 0.25 MG TAB PO PRN (08:23)
[2020-02-01] MEDS ORDERED: NITROGLYCERIN SL TABS 0.4 MG TAB SUBLINGUAL PRN (08:23)
[2020-02-01] MEDS ORDERED: ASPIRIN 325 MG TAB PO STA (08:23)
[2020-02-01] MEDS ORDERED: ATORVASTATIN 80 MG TAB PO STA (08:23)
[2020-02-01] MEDS ORDERED: SODIUM CHLORIDE 0.9% 1,000 ML in EMPTY BAG 1 BAG IV ONE (08:23)
[2020-02-01] MEDS ORDERED: ALPRAZolam 0.5 MG TAB PO PRN (08:23)
[2020-02-01] MEDS ORDERED: ASPIRIN 325 MG TAB PO SCH (09:00)
[2020-02-01] MEDS ORDERED: CLOPIDOGREL 75 MG TAB PO SCH (09:00)
[2020-02-01] MEDS ORDERED: LORazepam 1 MG TAB PO SCH ×2 (09:00→21:00)
[2020-02-01] MEDS ORDERED: ASPIRIN 81 MG PO SCH (09:00)
[2020-02-01] MEDS ORDERED: METOPROLOL SUCCINATE (ER) 25 MG TAB.ER.24H PO SCH (09:00)
[2020-02-01] MEDS ORDERED: BALSALAZIDE DISODIUM 750 MG CAPSULE PO SCH (09:00)
[2020-02-01 09:22] LABS: Glucose,Whole Blood 93 mg/dL (75-99)
--- NOTE | 2020-02-01 10:01 | CONS ---
CONSULTATION Mrs. Hidalgo is a 64-year-old female with a history of hypertension, hyperlipidemia, history of coronary artery disease who presented with symptoms of chest discomfort. Patient has presented to the hospital in October of this year initially to [facility] and at that time had evidence of non ST-segment elevation myocardial infarction, underwent cardiac catheterization, was found to have significant obstructive disease involving the first diagonal branch in the mid LAD and underwent successful stenting of both vessels. She has been active physically, has lost weight, exercising on the treadmill without any symptoms. Yesterday while sitting, she had an episode of chest burning reminding her of the symptoms she had at that time. She did not feel short of breath. She did not feel dizzy, no palpitation or syncope. She has been complaining of recurrent infection on her teeth and has been requiring antibiotics. Otherwise, she has done well without any difficulty. She is pain free at the time of my evaluation. She has no history of diabetes. She has hypertension and hyperlipidemia as noted. MEDICATION: Include aspirin once a day, Plavix 75 mg daily, Lipitor 80 mg daily, Pepcid, Synthroid, Lialda, metoprolol succinate 25 mg daily, Zestril 5 mg daily. REVIEW OF SYSTEMS: RESPIRATORY SYSTEM: She has no documented history of asthma, emphysema, bronchitis. GI SYSTEM: She has history of ulcerative colitis, no recent nausea and vomiting. SYSTEM: No dysuria, hematuria. NERVOUS SYSTEM: No stroke or seizure. She has chronic pain in her back. PHYSICAL EXAMINATION: She is a 64-year-old female, alert, oriented, in no apparent distress. Blood pressure 100/60 with a heart rate in the 50s. HEAD: Normocephalic. EYES: Sclerae nonicteric. NECK: Good upstroke, no bruit, no jugular venous distension. LUNGS: Clear to auscultation. HEART: Regular rate and rhythm, S1, S2. No S3 with systolic murmur at the base. No diastolic murmur, no rub. ABDOMEN: Soft, nontender. Positive bowel sounds, no organomegaly. EXTREMITIES: No edema, intact pulses. LAB DATA: Revealed troponin less than 0.012 for 3 samples. Cholesterol 124, LDL of 71, BUN and creatinine 21 and 0.76. Hemoglobin of 13.5. EKG revealed sinus mechanism, normal axis and intervals with minor nonspecific ST-T wave changes. Chest x-ray revealed no evidence of acute infiltrate. IMPRESSION: 1. Chest discomfort, possible angina pectoris in a patient with known history of coronary artery disease, status post recent stenting. 2. History of hypertension. 3. Hyperlipidemia. 4. History of ulcerative colitis. RECOMMENDATION: In view of her presentation and prior history, I have recommended proceeding with coronary angiography to assess her status and guide her treatment. The rationale behind the procedure as well as the risks and the complication were discussed with the patient who is in full understanding and agreement. Thank you for this consult. Will follow with you. MMTAYLORL / IJN: [id number] /
[2020-02-01] MEDS ORDERED: IV FLUID CONTINUATION 1,000 ML IV ONE (10:15)
[2020-02-01] MEDS ORDERED: fentaNYL (PF) 50 MCG/ML 2 ML AMP IVP ONE (10:27)
[2020-02-01] MEDS ORDERED: LIDOCAINE 1% INJ 10MG/ML (20 ML MDV) SQ ONE (10:30)
[2020-02-01] MEDS ORDERED: VERAPAMIL SYRINGE (5 MG/10 ML) INTRAARTER ONE (10:32)
[2020-02-01] MEDS ORDERED: HEPARIN SODIUM 1,000 UN/ML (10ML VL) IV ONE (10:42)
[2020-02-01] MEDS ORDERED: IOPAMIDOL-370 125ML BTL INJ ONE (10:48)
[2020-02-01] MEDS ORDERED: RX INFO: IV CONTRAST WAS GIVEN 1 EACH MISC MISCELLANE PRN (10:55)
[2020-02-01] MEDS ORDERED: SODIUM CHLORIDE 0.9% 1,000 ML IV SCH (11:00)
--- NOTE | 2020-02-01 11:43 | CC ---
CARDIAC CATHETERIZATION REPORT Mrs. Hidalgo is a 64-year-old female with known history of coronary artery disease who in October of this year presented with non STEMI and underwent stenting of the diagonal branch and the LAD. She presented with symptoms of chest discomfort without enzymatic changes but because of her prior history and her presentation, recommendation made regarding cardiac catheterization. The procedures, risks, and complication were discussed with the patient who is in full understanding and agreement. PROCEDURE: Patient was brought to the labor mediator in a fasting semi-sedated state after receiving fentanyl and Benadryl and achieving moderate conscious sedated state. Using Xylocaine anesthesia and Seldinger technique, a 6-B[place]wanan sheath was introduced in the right radial artery. Selective right and left coronary angiography performed using 5-Botswanan, 3.5 bend right and left Yasmin catheters, multiple views of the coronary artery including hemiaxial views obtained. Following that, the 5-B[place]wanan tight pigtail catheter was introduced into the left ventricle and pressures were calculated. Following that, catheter and sheath were removed. Hemostasis was obtained with deployment of a TR band. There was no immediate complication. Patient is returned to her room in stable condition. Of note, the patient received 5,000 units of intravenous heparin as well as intra-arterial verapamil. FINDINGS: FLUOROSCOPY: There was calcification involving the LAD. LEFT MAIN: This is a large-sized vessel, bifurcating into left circumflex, left anterior descending artery. Left main coronary artery has no evidence of high-grade stenosis. LEFT ANTERIOR DESCENDING ARTERY: This is a large-sized vessel reaching toward the apex with a wraparound apex segment, giving rise to a large diagonal branch. The left and descending artery proximally has 20%. The stented segment is patent. There is no significant in-stent restenosis. The diagonal branch stent is patent. The ostium of the diagonal branch has about a 60%-70% plaque that has not changed. The rest of the vessel has intimal disease without any evidence of high-grade stenosis. LEFT CIRCUMFLEX: This is a large nondominant vessel, giving rise to two obtuse marginal branches. The left circumflex as well as branches have no evidence of obstructive coronary artery disease. RIGHT CORONARY ARTERY: This is a dominant vessel, large in caliber, bifurcating distally into PDA and posterolateral segment and branches. The RCA has mild intimal disease in mid segment of 20% to 30% without any evidence of high-grade stenosis. LEFT VENTRICULOGRAM: Left ventriculogram was not performed. HEMODYNAMICS: There was no gradient across the aortic valve. The left ventricular end- diastolic pressure is 16-20 mmHg. CONCLUSION: 1. Patent stent in the LAD in the diagonal branch with an ostial diagonal branch lesion that has not progressed compared to October of this year. 2. Mild disease in the right coronary artery. RECOMMENDATION: In view of finding anatomy, I recommend continue medical therapy with aggressive risk modifications being initiated. Those findings and recommendation were discussed with the patient and she is in full understanding and agreement. Duration of the patient 19 minutes. MMODL / IJN: [id number] /
--- NOTE | 2020-02-01 14:29 | P.HPIM ---
History of Present Illness H&P Date: 02/01/20 Chief Complaint: Chest pain HISTORY AND PHYSICAL AND DISCHARGE SUMMARY: HISTORY OF PRESENT ILLNESS This is a 64-year-old female patient of Dr. Cook with past medical history of hypertension, hyperlipidemia, fibromyalgia, osteoarthritis, hypothyroidism, ulcerative colitis. Patient states that she developed chest pain on the left side of her chest under her breast with worsening with deep breath, moving and walking. She denies any shortness of breath. She states she felt a little nauseated but no vomiting. She denies any lightheadedness or dizziness.n October of this year, patient presented for non-ST elevated myocardial infarction and underwent stenting of the diagonal and LAD. Patient presented to [facility] emergency center for evaluation. Troponins have been negative on 3 draws.cBC unremarkable. Chloride 108, BUN 21 creatinine 0.76, blood sugar 116, AST 39. Triglycerides 106, Cholesterol 124, LDL 71, HDL 32. chest x-ray reveals no acute cardio pulmonary disease. lima has been seen by cardiology and underwent heart catheterization which revealedpatent stent in the LAD and the diagonal branch with an ostial diagonal branch lesion that was not progressed compared to October of this year. Mild disease in the right coronary artery. REVIEW OF SYSTEMS Constitutional: No fever, no chills, no night sweats. No weight change. No weakness, fatigue or lethargy. No daytime sleepiness. EENT: No headache. No blurred vision or double vision, no loss of vision. No loss of Hearing, no ringing in the ears, no dizziness. No nasal drainage or congestion. No epistaxis. No sore throat. Lungs: No shortness of breath, cough, no sputum production. No wheezing. Cardiovascular: Reports chest pain, no lower extremity edema. No palpitations. No paroxysmal nocturnal dyspnea. No orthopnea. No lightheadedness or dizziness. No syncopal episodes. Abdominal: No abdominal pain. reports nausea, no vomiting. No diarrhea. No constipation. No bloody or tarry stools.. No loss of appetite. Genitourinary: No dysuria, increased frequency, urgency. No urinary retention. Musculoskeletal: No myalgias. No muscle weakness, no gait dysfunction, no frequent falls. No back pain. No neck pain. Integumentary: No wounds, no lesions. No rash or pruritus. No unusual bruising. No change in hair or nails. Neurologic: No aphasia. No facial droop. No change in mentation. No head injury. No headache. No paralysis. No paresthesia. Psychiatric: No depression. No anxiety. No mood swings. Endocrine: No abnormal blood sugars. No weight change. No excessive sweating or thirst. No cold intolerance. SOCIAL HISTORY Patient has history of smoking marijuana and quit 1 year ago. She denies any tobacco smoking. She denies any alcohol use, illicit drug use. She is single. FAMILY HISTORY Father is alive at age 85 but she has no contact with him and does not know his medical conditions. Mother at age 76 from Alzheimer's dementia. Patient has 1 sister that has had some heart problems but she does not know any specific information. One brother with history of myocardial infarction. She has a total of 6 siblings. Patient has 3 children with no major medical problems. PHYSICAL EXAMINATION Gen: This is A 64-year-old female. Patient seen on stretcher and appears to be in no acute distress. Patient is underway for heart catheterization. HEENT: Head is atraumatic, normocephalic. Pupils equal, round. Sclerae is anicteric. NECK: Supple. No JVD. No lymphadenopathy. No thyromegaly. LUNGS: Clear to auscultation. No wheezes or rhonchi. No intercostal retract ions. HEART: Regular rate and rhythm. Systolic murmur. ABDOMEN: Soft. Bowel sounds are present. No masses. No tenderness. EXTREMITIES: No pedal edema. No calf tenderness. NEUROLOGICAL: Patient is awake, alert and oriented x3. Cranial nerves 2 through 12 are grossly intact. ASSESSMENT AND PLAN 1. Chest pain with normal troponins. Cardiology consult appreciated. Heart catheterization as above. Patient has been cleared by cardiology for discharge home. 2. Hypertension. 3. Hyperlipidemia 4. History of coronary artery disease with previous stenting and non-ST elevated myocardial infarction in October of this year. 5. Fibromyalgia. 6. Osteoarthritis, generalized. 7. Hypothyroidism. 8. History of ulcerative colitis, stable. Patient placed as observation status. Discharge plan: home. Discharge Medication List LORazepam [Lorazepam] 1 mg PO BID 07/01/14 [History] LORazepam [Lorazepam] 2 mg PO HS 07/01/14 [History] PARoxetine HCL 60 mg PO HS 07/01/14 [History] Levothyroxine Sodium [Synthroid] 100 mcg PO DAILY 10/20/19 [History] Mesalamine [Lialda] 3.6 gm PO HS 10/20/19 [History] traMADol HCL 100 mg PO TID PRN 10/20/19 [History] Aspirin 81 mg PO DAILY chew 10/21/19 [Rx] Atorvastatin [Lipitor] 80 mg PO HS #90 tab 10/21/19 [Rx] Clopidogrel [Plavix] 75 mg PO DAILY #90 tab 10/21/19 [Rx] Clindamycin HCl 300 mg PO BID 01/31/20 [History] Famotidine [Pepcid] 20 mg PO BID PRN 01/31/20 [History] Metoprolol Succinate (ER) [Toprol XL] 25 mg PO DAILY 01/31/20 [History] lisinopriL [Zestril] 5 mg PO HS 01/31/20 [History] Impression and plan of care have been directed as dictated by the signing physician. Yoon Lechuga nurse practitioner acting as scribe for signing physician. Past Medical History Past Medical History: Fibromyalgia, Hyperlipidemia, Hypertension, Osteoarthritis (OA), Thyroid Disorder Additional Past Medical History / Comment(s): ULCERATIVE COLITIS. RHEUMATIC FEVER DID NOT CAUSE CARDIAC DAMAGE History of Any Multi-Drug Resistant Organisms: None Reported Past Surgical History: Adenoidectomy, Tonsillectomy, Tubal Ligation, Uterine Ablation Additional Past Surgical History / Comment(s): COLONOSCOPY. EGD. RIGHT HAND TENDONITIS SURGERY Past Anesthesia/Blood Transfusion Reactions: No Reported Reaction Past Psychological History: Anxiety Smoking Status: Former smoker Past Alcohol Use History: None Reported Past Drug Use History: Marijuana Additional Drug Use History / Comment(s): pt states she stopped a year ago in November 2019 SMOKing MARIJUANA 4-5 TIMES daily- HAD MEDICAL MARIJUANA CARD - Past Family History Mother Family Medical History: Dementia Medications and Allergies Home Medications Medication Instructions Recorded Confirmed Type LORazepam [Lorazepam] 1 mg PO BID 07/01/14 01/31/20 History LORazepam [Lorazepam] 2 mg PO HS 07/01/14 01/31/20 History PARoxetine HCL 60 mg PO HS 07/01/14 01/31/20 History Levothyroxine Sodium [Synthroid] 100 mcg PO DAILY 10/20/19 01/31/20 History Mesalamine [Lialda] 3.6 gm PO HS 10/20/19 01/31/20 History traMADol HCL 100 mg PO TID PRN 10/20/19 01/31/20 History Aspirin 81 mg PO DAILY chew 10/21/19 01/31/20 Rx Atorvastatin [Lipitor] 80 mg PO HS #90 tab 10/21/19 01/31/20 Rx Clopidogrel [Plavix] 75 mg PO DAILY #90 tab 10/21/19 01/31/20 Rx Clindamycin HCl 300 mg PO BID 01/31/20 01/31/20 History Famotidine [Pepcid] 20 mg PO BID PRN 01/31/20 01/31/20 History Metoprolol Succinate (ER) [Toprol 25 mg PO DAILY 01/31/20 01/31/20 History XL] lisinopriL [Zestril] 5 mg PO HS 01/31/20 01/31/20 History Allergies Allergy/AdvReac Type Severity Reaction Status Date / Time Penicillins Allergy Rash/Hives Verified 01/31/20 21:40 Sulfa (Sulfonamide Allergy Rash/Hives Verified 01/31/20 21:40 Antibiotics) venom-honey bee Allergy Anaphylaxis Verified 01/31/20 21:40 [bee venom (honey bee)] Physical Exam Vitals: Vital Signs Temp Pulse Pulse Resp BP BP Pulse Ox 02/01/20 08:02 97.5 F L 47 L 16 95/56 96 02/01/20 03:00 98.3 F 53 L 100/63 94 L 01/31/20 22:15 97.7 F 52 L 16 111/70 95 01/31/20 20:44 62 16 117/70 98 01/31/20 20:05 60 01/31/20 19:57 98 F 68 18 117/72 97 Intake and Output 01/31/20 02/01/20 02/01/20 22:59 06:59 14:59 Output Total 1050 Balance -1050 Output: Urine 1050 Other: Voiding Method Toilet # Voids 4 Weight 86.636 kg 86.636 kg Results CBC & Chem 7: 01/31/20 20:11 01/31/20 20:11 Labs: Abnormal Lab Results - Last 24 Hours (Table) 01/31/20 02/01/20 Range/Units 20:11 02:25 Chloride 108 H (98-107) mmol/L BUN 21 H (7-17) mg/dL Glucose 116 H (74-99) mg/dL AST 39 H (14-36) U/L HDL Cholesterol 32 L (40-60) mg/dL Thrombosis Risk Factor Assmnt - Choose All That Apply Each Factor Represents 1 point: Hx of IBD, Obesity (BMI >25) Each Risk Factor Represents 2 Points: Age 61-74 years Thrombosis Risk Factor Assessment Total Risk Factor Score: 4 Thrombosis Risk Factor Assessment Level: Moderate Risk
[2020-02-01 14:40] VITALS: PULSE 57; RESP 16
[2020-02-01 16:58] VITALS: BP 91/51
[2020-02-01] MEDS ORDERED: ATORVASTATIN 80 MG TAB PO SCH (21:00)
[2020-02-01] MEDS ORDERED: lisinopriL 5 MG TAB PO SCH (21:00)
[2020-02-01] MEDS ORDERED: PARoxetine 20 MG TAB PO SCH (21:00)
== END 2020-02-01 18:39 | disposition home or self-care (01) ==
LOC: EC 19:47 → 3NCARDOBS 21:23
PROVIDERS: ADMIT Internal Medicine Geriatric Medicine; ATTEND Internal Medicine Geriatric Medicine
DX: I25.119 Atherosclerotic heart disease of native coronary artery with unspecified angina pectoris (principal); E03.9 Hypothyroidism, unspecified; E78.5 Hyperlipidemia, unspecified; F41.9 Anxiety disorder, unspecified; I10 Essential (primary) hypertension; I25.2 Old myocardial infarction; K51.90 Ulcerative colitis, unspecified, without complications; M19.90 Unspecified osteoarthritis, unspecified site; M79.7 Fibromyalgia; Z79.02 Long term (current) use of antithrombotics/antiplatelets; Z79.82 Long term (current) use of aspirin; Z79.890 Hormone replacement therapy; Z79.899 Other long term (current) drug therapy; Z82.0 Family history of epilepsy and other diseases of the nervous system; Z82.49 Family history of ischemic heart disease and other diseases of the circulatory system; Z87.891 Personal history of nicotine dependence; Z95.5 Presence of coronary angioplasty implant and graft
CPT/HCPCS: 93005 ×2; 96375 ×2; 96376 ×2; 96361; 96374; 99285; 36415; 93458; 80061; 80053; 83735; 84484 ×2; 85025; 85610; 85730; 71046; G0378 ×2; C1769 ×2; C1894; J2270 ×2; J2001; J3010; J1644; J1885; C9113; Q9967

== ENCOUNTER 2020-06-14 08:12 | Day surgery (SDC) | payer MEDICARE, OTHER ==
[2020-06-09 11:45] VITALS: BMI 27.3
[~2020-06-14 08:12] MED LIST changes: -DEXAMETHASONE SOD PHOSPHATE 10 MG/ML 1 ML VIAL IV ONE; -HYDROmorphone 1 MG/ML 1 ML SYRINGE IVP PRN; +LIDOCAINE 1% (10MG/ML) FOR IV START INTRADERMA PRN; -ONDANSETRON 4 MG/2 ML VIAL IVP ONE
[2020-06-14 09:17] VITALS: TEMP 98.5
[2020-06-14] MEDS ORDERED: PROPOFOL 10 MG/ML 20 ML VIAL IV ONE (09:45)
--- NOTE | 2020-06-14 10:01 | P.PCN ---
Date of Procedure: 06/14/20 Procedure(s) Performed: BRIEF HISTORY: Patient is a 64-year-old pleasant white female scheduled for an elective colonoscopy as a part of long-standing history of ulcerative colitis diagnosed 23 years ago. She is in clinical remission. PROCEDURE PERFORMED: Colonoscopy with random biopsies. PREOPERATIVE DIAGNOSIS: Long-standing history of ulcerative colitis. IV sedation per Anesthesia. PROCEDURE: After informed consent was obtained, the patient, was brought into the endoscopy unit. IV sedation was administered by Anesthesia under continuous monitoring. Digital rectal examination was normal. Initially the Olympus CF-160 flexible video colonoscope was then inserted in the rectum, gradually advanced into the cecum without any difficulty. Careful examination was performed as the scope was gradually being withdrawn. Ileocecal valve and the appendiceal orifice were visualized and appeared normal. Prep was excellent. Mucosa of the cecum, ascending colon, transverse colon, descending colon, sigmoid colon, and rectum appeared normal. Retroflexion was performed in the rectum and no lesions were seen. The patient tolerated the procedure well. IMPRESSION: Normal-appearing colon from rectum to cecum with no evidence of active colitis or colorectal neoplasia . RECOMMENDATIONS: Findings of this examination were discussed with the patient as well his family. She was advised to follow with the biopsy results. She will continue with Lialda 3 tablets daily. If the biopsy does not show any evidence of dysplasia he can have a repeat colonoscopy in 2 years..
[2020-06-14 10:26] VITALS: BP 100/63; PULSE 53; RESP 95
== END 2020-06-14 10:34 | disposition home or self-care (01) ==
LOC: ORWHC2ENDO 08:12
PROVIDERS: ATTEND Internal Medicine Gastroenterology
DX: K51.90 Ulcerative colitis, unspecified, without complications (principal); I25.2 Old myocardial infarction; J44.9 Chronic obstructive pulmonary disease, unspecified; Z95.5 Presence of coronary angioplasty implant and graft; Z88.0 Allergy status to penicillin; Z88.2 Allergy status to sulfonamides; Z79.02 Long term (current) use of antithrombotics/antiplatelets; Z79.82 Long term (current) use of aspirin; Z79.890 Hormone replacement therapy; Z79.899 Other long term (current) drug therapy; Z79.1 Long term (current) use of non-steroidal anti-inflammatories (NSAID)
CPT/HCPCS: 88305; 45380; J2704

== ENCOUNTER → 2020-09-08 | Outpatient (CLI) | payer MEDICARE, OTHER ==
--- NOTE | 2020-09-12 11:01 | MM ---
Reason for exam: screening (asymptomatic). Last mammogram was performed 2 years and 4 months ago. History: Patient is postmenopausal and history of other cancer. Family history of breast cancer in paternal aunt. Cyst aspiration of the right breast. Took hormonal contraceptives for 10 years beginning at age 15. Physical Findings: A clinical breast exam by your physician is recommended on an annual basis and results should be correlated with mammographic findings. MG 3D Screening Mammo W/Cad Bilateral CC and MLO view(s) were taken. Prior study comparison: May 22, 2018, bilateral MG 3d screening mammo w/cad. August 01, 2016, bilateral MG 3d screening mammo w/cad. The breast tissue is heterogeneously dense. This may lower the sensitivity of mammography. Right increased density lateral breast posterior depth on CC view. ASSESSMENT: Incomplete: need additional imaging evaluation, BI-RAD 0 RECOMMENDATION: Special view mammogram of the right breast. If lesion persists on supplemental views, image directed ultrasound is recommended. [facility] will attempt to contact patient to return for supplemental views and ultrasound if indicated.
== END | disposition home or self-care (01) ==
LOC: RADMAMWWP 13:54
PROVIDERS: ATTEND Family Medicine
DX: Z12.31 Encounter for screening mammogram for malignant neoplasm of breast (principal); Z80.3 Family history of malignant neoplasm of breast
CPT/HCPCS: 77063; 77067

== ENCOUNTER → 2020-09-13 | Outpatient (CLI) | payer MEDICARE, OTHER ==
--- NOTE | 2020-09-13 13:40 | MM ---
Reason for exam: additional evaluation requested from abnormal screening. Last mammogram was performed less than 1 month ago. History: Patient is postmenopausal and history of other cancer. Family history of breast cancer in paternal aunt. Cyst aspiration of the right breast. Took hormonal contraceptives for 10 years beginning at age 15. Physical Findings: Nurse did not find any significant physical abnormalities on exam. MG 3D Work Up W/Cad RT Spot compression CC, CCRL, and CCRM view(s) were taken of the right breast. Prior study comparison: September 08, 2020, bilateral MG 3d screening mammo w/cad. May 22, 2018, bilateral MG 3d screening mammo w/cad. The breast tissue is heterogeneously dense. This may lower the sensitivity of mammography. Right breast nodule 5mm at 10 o'clock, 4cm from nipple. These results were verbally communicated with the patient and result sheet given to the patient on 09/13/20. ASSESSMENT: Incomplete: need additional imaging evaluation, BI-RAD 0 RECOMMENDATION: Ultrasound of the right breast.
--- NOTE | 2020-09-13 13:46 | USB ---
Reason for exam: additional evaluation requested from abnormal screening. History: Patient is postmenopausal and history of other cancer. Family history of breast cancer in paternal aunt. Cyst aspiration of the right breast. Took hormonal contraceptives for 10 years beginning at age 15. US Breast Limited RT Right limited breast ultrasound including focal area of concern, retroareolar and axilla demonstrates a 0.5 x 0.4 x 0.6cm oval, smooth, cystic lesion at 10 o'clock, most likely mammogram probably benign, a 0.2 x 0.3cm hypoechoic calcification at 11 o'clock, benign and duct with debris at the posterior nipple or solid material, no color flow, suspicious. Ultrasound guided biopsy for ductal abnormality. These results were verbally communicated with the patient and result sheet given to the patient on 09/13/20. ASSESSMENT: Suspicious, BI-RAD 4 RECOMMENDATION: Ultrasound core biopsy of the right breast. Called Dr. Liao's office with mammographic findings and has scheduled an appointment for the patient for 10/06/20 at 10:[address] Kidd. Biopsy scheduled for 10/09/20 at 12:00. PRELIMINARY REPORT CALLED AND FAXED TO DR. KIDD ON 09/13/20.
== END | disposition home or self-care (01) ==
LOC: RADMAMWWP 08:28
PROVIDERS: ATTEND Family Medicine
DX: N63.10 Unspecified lump in the right breast, unspecified quadrant (principal); N60.01 Solitary cyst of right breast; Z78.0 Asymptomatic menopausal state; Z80.3 Family history of malignant neoplasm of breast
CPT/HCPCS: 77065; 76642; G0279; 77061

== ENCOUNTER → 2020-10-06 | Outpatient (CLI) | payer MEDICARE, OTHER ==
[2020-10-06 10:14] VITALS: BP 120/76; PULSE 71; RESP 18; TEMP 98
--- NOTE | 2020-10-06 10:50 | P.GSHP ---
History of Present Illness H&P Date: 10/06/20 Chief Complaint: Ultrasound abnormality right breast Kamini is a 65-year-old white female who presents in consultation for Dr. Liao regarding an ultrasound abnormality in her right breast. She underwent a bilateral mammogram on 520 121 which was felt to be incomplete and additional studies of the right breast were recommended. The additional studies were done on 520 621 the diagnostic mammogram revealed a right breast nodule 5 mm in size at 10:00 4 cm from the nipple. An ultrasound was then recommended. The ultrasound on the same date revealed a benign duct with debris at the posterior nipple or solid material ultrasound-guided biopsy for ductal abnorma lity was recommended. No other specific lesions were identified in the right breast. The patient states this was a routine mammogram and she had not felt any lumps masses or nodules in her breast. She is not complaining of any nipple discharge, she does develop fungal infection under her breasts. She is not complaining of any recent trauma or infection in the breast. Is not having any surgery on her breast. She does have a history of right-sided mastitis when she was breast-feeding many years ago. Caffeine: 2 cups/day nicotine: none chocolate: none Family History: maternal grandmother: colon cancer paternal aunt: breast cancer maternal great grandmother: breast cancer at 94 Hormonal History: menarche: 17 M1, breast fed: yes, age at first : 22 menopause: 42 BCP: 3 years hormones: natural yam extract (progesterone); used hormones to initiate her menstrual cycle when she was 17 Surgical History: 1. uterine ablation 2. tubaligation 3. tonsil 4. wrist Medical History: 1. ulcerative colitis 2. broken bones on prednisone 3. night terrors 4. PTSD 5. Fibromyalgia 6. Heart attack Social History: nicotine: none alcohol: none drugs: Marijuana for 10 years, stopped 2 years ago - Constitutional Constitutional: Denies chills, Denies fever - EENT Comment: bilateral cataracts Eyes: denies blurred vision, denies pain Ears: bilateral: decreased hearing Ears, nose, mouth and throat: Denies headache, Denies sore throat - Breasts Breasts: bilateral: as per HPI - Cardiovascular Comment: heart attack 2019, two stints in place Cardiovascular: Denies chest pain, Denies shortness of breath - Respiratory Respiratory: Denies cough, Denies 7 - Gastrointestinal Comment: ulcerative colitis Gastrointestinal: Denies abdominal pain, Denies diarrhea, Denies nausea, Denies vomiting - Genitourinary (Female) Genitourinary: Denies dysuria, Denies hematuria - Menstruation Menstruation: Reports postmenopausal - Musculoskeletal Comment: Osteoporosis, back pain, degenerative disc disease - Integumentary Comment: Psoriasis Integumentary: Denies pruritus, Denies rash - Neurological Neurological: Denies numbness, Denies weakness - Psychiatric Comment: Posttraumatic stress disorder Psychiatric: Reports anxiety, Reports depression - Endocrine Endocrine: Reports fatigue - Hematologic/Lymphatic Comment: on blood thinners; aspirin and Plavix - Allergic/Immunologic Allergic/Immunologic: Reports as per HPI Past Medical History Past Medical History: Fibromyalgia, Hyperlipidemia, Hypertension, Myocardial Infarction (CT), Osteoarthritis (OA), Thyroid Disorder Additional Past Medical History / Comment(s): ULCERATIVE COLITIS,. HX of RHEUMATIC FEVER DID NOT CAUSE CARDIAC DAMAGE, DEGENERATIVE DISC DISEASE, BENIGN CYST ON KIDNEY Last Myocardial Infarction Date:: 10/19/19 History of Any Multi-Drug Resistant Organisms: None Reported Past Surgical History: Adenoidectomy, Breast Surgery, Heart Catheterization With Stent, Orthopedic Surgery, Tonsillectomy, Tubal Ligation, Uterine Ablation Additional Past Surgical History / Comment(s): COLONOSCOPY, EGD. RIGHT HAND TENDONITIS SURGERY, BENIGN RIGHT BREAST BIOPSY ROUGHLY 40 YRS AGO Past Anesthesia/Blood Transfusion Reactions: No Reported Reaction Date of Last Stent Placement:: 10/20/19 Past Psychological History: Anxiety, PTSD Additional Psychological History / Comment(s): hx of night terrors Smoking Status: Never smoker Past Alcohol Use History: None Reported Past Drug Use History: None Reported Additional Drug Use History / Comment(s): quit smoking marijuana November 2019 - Past Family History Mother Family Medical History: Dementia Medications and Allergies Home Medications Medication Instructions Recorded Confirmed Type LORazepam [Lorazepam] 1 mg PO DAILY 07/01/14 10/06/20 History LORazepam [Lorazepam] 2 mg PO HS 07/01/14 10/06/20 History PARoxetine HCL 60 mg PO HS 07/01/14 10/06/20 History Levothyroxine Sodium [Synthroid] 100 mcg PO DAILY 10/20/19 10/06/20 History Mesalamine [Lialda] 3.6 gm PO HS 10/20/19 10/06/20 History traMADol HCL 100 mg PO TID PRN 10/20/19 10/06/20 History Aspirin 81 mg PO DAILY chew 10/21/19 10/06/20 Rx Clopidogrel [Plavix] 75 mg PO DAILY #90 tab 10/21/19 10/06/20 Rx Metoprolol Succinate (ER) [Toprol 12.5 mg PO DAILY 01/31/20 10/06/20 History XL] Rosuvastatin [Crestor] 40 mg PO HS 09/28/20 10/06/20 History Allergies Allergy/AdvReac Type Severity Reaction Status Date / Time Penicillins Allergy Rash/Hives Verified 10/06/20 10:10 Sulfa (Sulfonamide Allergy Rash/Hives Verified 10/06/20 10:10 Antibiotics) venom-honey bee Allergy Anaphylaxis Verified 10/06/20 10:10 [bee venom (honey bee)] Surgical - Exam Vital Signs Temp Pulse Resp BP Pulse Ox 98.0 F 71 18 120/76 100 10/06/20 10:12 10/06/20 10:12 10/06/20 10:12 10/06/20 10:12 10/06/20 10:12 BMI 28 - General no distress - Eyes normal ocular movement - ENT normal nares, no hearing loss - Neck no masses, trachea midline - Respiratory normal respiratory effort, clear to auscultation - Cardiovascular Rhythm: regular Heart Sounds: normal: S1, S2 - Abdomen Abdomen: soft, non tender, no guarding, no rigid, no rebound - Integumentary normal turgor - Neurologic no disoriented, no combative - Musculoskeletal normal gait - Psychiatric oriented to time, oriented to person, oriented to place, speech is normal, memory intact Breast exam: 38B inspection: Bilateral grade 2 ptosis; fungal infection under the right breast Palpation: Right breast: Multiple positional exam fibrocystic changes, tender behind the periareolar complex, no discharge, no dominant masses or nodules of concern Right axilla: No adenopathy of concern Left breast: Multiple positional exam fibrocystic changes, no dominant masses or nodules of concern Left axilla: No adenopathy of concern Results Mammogram and ultrasound results reviewed Assessment and Plan Assessment: Impression: 1. ulcerative colitis 2. broken bones on prednisone 3. night terrors 4. PTSD 5. Fibromyalgia 6. Heart attack 7. abnormal right breast ultrasound 8. fibrocystic breast changes Plan: 1. Radiology has recommended ultrasound-guided core biopsy of ductal abnormality right breast 2. Patient to follow up after ultrasound core biopsy 3. Patient is going to stop Plavix and the missile and then for 1 week prior to the procedure she is going to continue her aspirin as per cardiology Risks and benefits of procedure discussed with the patient. She understands and wishes to proceed. Cc: Dr. Liao
== END ==
LOC: WWCWWP 09:58
PROVIDERS: ATTEND Surgery
DX: R92.8 Other abnormal and inconclusive findings on diagnostic imaging of breast (principal); N60.11 Diffuse cystic mastopathy of right breast; N60.12 Diffuse cystic mastopathy of left breast; K51.90 Ulcerative colitis, unspecified, without complications; M79.7 Fibromyalgia; E78.5 Hyperlipidemia, unspecified; F41.9 Anxiety disorder, unspecified; I10 Essential (primary) hypertension; I25.2 Old myocardial infarction; M19.90 Unspecified osteoarthritis, unspecified site; F43.10 Post-traumatic stress disorder, unspecified; F51.4 Sleep terrors [night terrors]; T14.8XXA Other injury of unspecified body region, initial encounter; I21.9 Acute myocardial infarction, unspecified; Z79.82 Long term (current) use of aspirin; Z79.02 Long term (current) use of antithrombotics/antiplatelets; Z79.899 Other long term (current) drug therapy; Z88.0 Allergy status to penicillin; Z88.2 Allergy status to sulfonamides; Z91.030 Bee allergy status

== ENCOUNTER → 2020-10-09 | Day surgery (SDC) | payer MEDICARE, OTHER ==
[2020-10-09 12:12] VITALS: RESP 16
--- NOTE | 2020-10-09 13:20 | USB ---
EXAMINATION TYPE: US biopsy breast VAD RT, MG diagnostic mammo RT wo CAD DATE OF EXAM: 10/09/2020 CLINICAL HISTORY: R92.8 Abnormal Mammogram. TECHNIQUE: Ultrasound guided core biopsy of right breast. COMPARISON: 09/13/2020 FINDINGS: The procedure of ultrasound guided core biopsy was explained to the patient. Benefits, alternatives, and risks were discussed. An informed consent was then obtained. The patient was placed in supine positioning for imaging and for the procedure. The overlying skin was prepped and draped in usual sterile fashion. Lidocaine buffered with bicarbonate was used as anesthetic into the skin and subcutaneous tissue up to area of concern in the retroareolar right breast. A dez was made with surgical scalpel. Under ultrasound guidance, a 12-gauge vacuum assisted biopsy gun device was used to obtain 3 core samples. Following this, a biopsy clip was left in lesion. The patient tolerated the procedure well without any immediate complication. The patient was kept in the radiology department for short stay after the procedure and then discharged home in stable condition. Biopsy clip does not correspond to the asymmetry identified on mammogram which presumably correlates with the 10:00 cystic lesion seen on prior ultrasound. IMPRESSION: Successful, uncomplicated ultrasound guided core biopsy of area of concern in the right breast, full pathology results to follow. Pathology Results: Benign RIGHT BREAST, CORE BIOPSY: Benign breast tissue with fragment of benign cyst wall/fibrocystic change. 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 Recommendation Follow up mammogram of the right breast in 6 months. FABIANA
[2020-10-09 13:21] VITALS: BP 106/64; PULSE 60; TEMP 98.3
== END ==
LOC: RADUSWWP 11:45
PROVIDERS: ATTEND Surgery
DX: N60.11 Diffuse cystic mastopathy of right breast (principal); R92.8 Other abnormal and inconclusive findings on diagnostic imaging of breast; Z88.0 Allergy status to penicillin; Z88.2 Allergy status to sulfonamides
CPT/HCPCS: 88305; 77065; 19083; A4648; J2001

== ENCOUNTER → 2020-10-19 | Outpatient (CLI) | payer MEDICARE, OTHER ==
[2020-10-19 10:54] VITALS: BP 147/71; PULSE 65; RESP 18; TEMP 97.7
--- NOTE | 2020-10-19 11:01 | P.PN ---
Subjective Progress Note Date: 10/19/20 Principal diagnosis: Kamini is a 65-year-old white female status post right breast core biopsy on 620 121. Pathology revealed benign breast tissue with fragment of benign cyst wall/fibrocystic change. 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 The patient tolerated the procedure without difficulty. This was felt to be benign and concordant. Patient does bring to my attention and area of erythema under the right breast which appears to be consistent with a fungal infection. Objective - Vital Signs Vital signs: Vital Signs Temp 97.7 F 10/19/20 10:51 Pulse 65 10/19/20 10:51 Resp 18 10/19/20 10:51 BP 147/71 10/19/20 10:51 Pulse Ox 97 10/19/20 10:51 Intake & Output 10/18/20 10/19/20 10/19/20 18:59 06:59 18:59 Weight 79.379 kg - Constitutional General appearance: Present: average body habitus - EENT Eyes: Present: EOMI ENT: Present: hearing grossly normal - Neck Neck: Present: normal ROM - Respiratory Respiratory: bilateral: CTA - Cardiovascular Heart sounds: normal: S1, S2 - Integumentary Integumentary Comment(s): Biopsy site clean and dry/mild ecchymosis and small hematoma at the site No evidence of any infection at biopsy site Evidence of fungal infection under right breast/no evidence of fungal infection in her left breast at this time Assessment and Plan Assessment: Fashion: 1. Concordant ultrasound core biopsy right breast benign 2. Fungal infection under right breast 3. high cholesterol Plan: 1. Nystatin to provide a area of concern under right breast 2. Follow-up right breast mammogram in 6 months with physician exam at that time 3. Patient is on aspirin and Plavix at this time secondary to an VT approximately 1 year ago/she has 2 coronary stents 4. Patient high cholesterol on to statins Cc: Dr. Liao
== END ==
LOC: WWCWWP 10:14
PROVIDERS: ATTEND Surgery
DX: B36.9 Superficial mycosis, unspecified (principal); E78.00 Pure hypercholesterolemia, unspecified; Z88.0 Allergy status to penicillin; Z88.2 Allergy status to sulfonamides; Z91.030 Bee allergy status; Z79.899 Other long term (current) drug therapy

== ENCOUNTER → 2020-12-22 | Outpatient (CLI) | payer MEDICARE, OTHER ==
[2020-12-23 17:02] LABS: Chol/HDL Ratio 2.9; LDL Cholesterol,Calculated 66.8 mg/dL (0.0-131.0); VLDL Calculation 26.2 mg/dL (5.00-40.00)
== END | disposition home or self-care (01) ==
LOC: LABWHC1 08:58
PROVIDERS: ATTEND Internal Medicine Clinical Cardiac Electrophysiology
DX: E78.00 Pure hypercholesterolemia, unspecified (principal); I25.10 Atherosclerotic heart disease of native coronary artery without angina pectoris
CPT/HCPCS: 36415; 80061

== ENCOUNTER 2021-02-14 17:08 | Inpatient (IN) | payer MEDICARE, OTHER ==
[2021-02-14 17:59] LABS: Basophils # (A) 0.1 k/uL (0-0.2); Basophils % (A) 1 %; Eosinophils # (A) 0.3 k/uL (0-0.7); Eosinophils % (A) 4 %; HCT 43.1 % (34.0-46.0); Lymphocytes # (A) 1.3 k/uL (1.0-4.8); Lymphocytes % (A) 19 %; MCH 31.8 pg (25.0-35.0); MCHC 32.5 g/dL (31.0-37.0); Monocytes # (A) 0.4 k/uL (0-1.0); Monocytes % (A) 6 %; Neutrophils # (A) 4.7 k/uL (1.3-7.7); Neutrophils % (A) 69 %; Platelet Count 253 k/uL (150-450); RDW 12.5 % (11.5-15.5); WBC 6.9 k/uL (3.8-10.6)
[2021-02-14 18:08] LABS: ALT 77 U/L (4-34); AST 66 U/L (14-36); African American GFR (CKD) >90 (>60 ml/min/1.73 sqM); Albumin 4.3 g/dL (3.5-5.0); Alkaline Phosphatase 45 U/L (38-126); Anion Gap 9 mmol/L; Blood Urea Nitrogen 17 mg/dL (7-17); Calcium 9.7 mg/dL (8.4-10.2); Carbon Dioxide 23 mmol/L (22-30); Chloride 108 mmol/L (98-107); Glucose 97 mg/dL (74-99); Non-African American GFR(CKD) >90 (>60 ml/min/1.73 sqM); Potassium 4.3 mmol/L (3.5-5.1); Sodium 140 mmol/L (137-145); Total Bilirubin 0.5 mg/dL (0.2-1.3); Total Protein 7.2 g/dL (6.3-8.2)
[2021-02-14 18:23] LABS: Partial Thromboplastin Time 21.9 sec (22.0-30.0); Prothrombin Time 10.8 sec (9.0-12.0)
[2021-02-14] MEDS ORDERED: NALOXONE 0.4 MG/ML 1 ML VIAL IV PRN (19:17)
--- NOTE | 2021-02-14 19:18 | XR ---
EXAMINATION TYPE: XR chest 2V DATE OF EXAM: 02/14/2021 COMPARISON: 01/31/2020 HISTORY: Chest pain TECHNIQUE: FINDINGS: Heart and mediastinum are normal. Lungs are clear. Diaphragm is normal. Bony thorax appears intact. There are chest leads. IMPRESSION: Normal chest. No change.
--- NOTE | 2021-02-14 19:27 | ED ---
General Adult HPI - General Chief complaint: Chest Pain Stated complaint: Chest Pain Time Seen by Provider: 02/14/21 18:58 Source: patient Mode of arrival: ambulatory Limitations: no limitations - History of Present Illness Initial comments: 65 year-old female patient with past history of DE, presents for evaluation after having an episode of chest tightness that started around 4pm. Patient states she had associated shortness of breath and dizziness at the time. States she has been having increased palpitations today. She denies any recent fever, chills, nausea, vomiting. She does take metoprolol, did recently cut the dose in half. She started taking it at night 2 days ago. States she is very active generally. States for the last few weeks she has been feeling extremely fatigued and tired. Taking 4-5 hour naps during the day which is unusual for her. Patient denies any recent rash, cough, abdominal pain, nausea, vomiting, diarrhea, constipation, back pain, numbness, tingling, hematuria, dysuria, urinary urgency, urinary frequency, headache, visual changes, or any other complaints. - Related Data Home Medications Medication Instructions Recorded Confirmed LORazepam [Lorazepam] 1 mg PO DAILY 07/01/14 10/19/20 LORazepam [Lorazepam] 2 mg PO HS 07/01/14 10/19/20 PARoxetine HCL 60 mg PO HS 07/01/14 10/19/20 Levothyroxine Sodium [Synthroid] 100 mcg PO DAILY 10/20/19 10/19/20 Mesalamine [Lialda] 3.6 gm PO HS 10/20/19 10/19/20 traMADol HCL 100 mg PO TID PRN 10/20/19 10/19/20 Metoprolol Succinate (ER) [Toprol 12.5 mg PO DAILY 01/31/20 10/19/20 XL] Rosuvastatin [Crestor] 40 mg PO HS 09/28/20 10/19/20 Previous Rx's Medication Instructions Recorded Aspirin 81 mg PO DAILY chew 10/21/19 Clopidogrel [Plavix] 75 mg PO DAILY #90 tab 10/21/19 Allergies Allergy/AdvReac Type Severity Reaction Status Date / Time Penicillins Allergy Rash/Hives Verified 02/14/21 17:19 Sulfa (Sulfonamide Allergy Rash/Hives Verified 02/14/21 17:19 Antibiotics) venom-honey bee Allergy Anaphylaxis Verified 02/14/21 17:19 [bee venom (honey bee)] Review of Systems ROS Statement: Those systems with pertinent positive or pertinent negative responses have been documented in the HPI. ROS Other: All systems not noted in ROS Statement are negative. Past Medical History Past Medical History: Fibromyalgia, Hyperlipidemia, Hypertension, Myocardial Infarction (DE), Osteoarthritis (OA), Thyroid Disorder Additional Past Medical History / Comment(s): ULCERATIVE COLITIS,. HX of RH EUMATIC FEVER DID NOT CAUSE CARDIAC DAMAGE, DEGENERATIVE DISC DISEASE, BENIGN CYST ON KIDNEY Last Myocardial Infarction Date:: 10/19/19 History of Any Multi-Drug Resistant Organisms: None Reported Past Surgical History: Adenoidectomy, Breast Surgery, Heart Catheterization With Stent, Orthopedic Surgery, Tonsillectomy, Tubal Ligation, Uterine Ablation Additional Past Surgical History / Comment(s): COLONOSCOPY, EGD. RIGHT HAND TENDONITIS SURGERY, BENIGN RIGHT BREAST BIOPSY ROUGHLY 40 YRS AGO Past Anesthesia/Blood Transfusion Reactions: No Reported Reaction Date of Last Stent Placement:: 10/20/19 Past Psychological History: Anxiety, PTSD Smoking Status: Never smoker Past Alcohol Use History: None Reported Past Drug Use History: None Reported - Past Family History Mother Family Medical History: Dementia General Exam Limitations: no limitations General appearance: alert, in no apparent distress, other (This is a well-de veloped, well-nourished adult female patient in no acute distress. Vital signs upon presentation are temperature 98.8F will pulse 60, respirations 20, blood pressure 157/82, pulse ox 96% on room air.) Eye exam: Present: normal appearance, PERRL, EOMI. Absent: scleral icterus, conjunctival injection, periorbital swelling ENT exam: Present: normal exam, normal oropharynx, mucous membranes moist Respiratory exam: Present: normal lung sounds bilaterally. Absent: respiratory distress, wheezes, rales, rhonchi, stridor Cardiovascular Exam: Present: regular rate, normal rhythm, normal heart sounds. Absent: systolic murmur, diastolic murmur, rubs, gallop, clicks GI/Abdominal exam: Present: soft, normal bowel sounds. Absent: distended, tenderness, guarding, rebound, rigid Neurological exam: Present: alert, oriented X3, CN II-XII intact Psychiatric exam: Present: normal affect, normal mood Skin exam: Present: warm, dry, intact, normal color. Absent: rash Course Vital Signs 02/14/21 02/14/21 17:16 18:50 Temperature 98.8 F Pulse Rate 60 Respiratory 20 16 Rate Blood Pressure 157/82 O2 Sat by Pulse 96 Oximetry - Reevaluation(s) Reevaluation #1: 02/14/21 19:23 While evaluating the patient did notice a run of Vtach on the heart monitor. 5 preventricular beats. Multiple triplets and salvos noted. EKG Findings - EKG Comments: EKG Findings:: EKG obtained at 1728 shows sinus bradycardia with a ventricular rate of 58, TX interval 122, QR jewish 86, QT 402, QTc 394. No evidence of ST elevation or depression. Medical Decision Making - Medical Decision Making 65-year-old female patient presented to the emergency department today for evalu ation after having an episode of chest tightness, dizziness, shortness of breath. Physical examination was unremarkable. EKG was unremarkable showed sinus bradycardia. During my evaluation patient did have multiple short runs of vtach. Blood pressure was stable. She'll be admitted to the hospital for further monitoring and evaluation by cardiology. She is agreeable to this plan. Case discussed with my attending Dr. Donaldson. - Lab Data Result diagrams: 02/14/21 17:28 02/14/21 17:28 Lab Results 02/14/21 02/14/21 02/14/21 Range/Units 17:28 17:28 17:28 WBC 6.9 (3.8-10.6) k/uL RBC 4.40 (3.80-5.40) m/uL Hgb 14.0 (11.4-16.0) gm/dL Hct 43.1 (34.0-46.0) % MCV 98.0 (80.0-100.0) fL MCH 31.8 (25.0-35.0) pg MCHC 32.5 (31.0-37.0) g/dL RDW 12.5 (11.5-15.5) % Plt Count 253 (150-450) k/uL MPV 8.0 Neutrophils % 69 % Lymphocytes % 19 % Monocytes % 6 % Eosinophils % 4 % Basophils % 1 % Neutrophils # 4.7 (1.3-7.7) k/uL Lymphocytes # 1.3 (1.0-4.8) k/uL Monocytes # 0.4 (0-1.0) k/uL Eosinophils # 0.3 (0-0.7) k/uL Basophils # 0.1 (0-0.2) k/uL PT 10.8 (9.0-12.0) sec INR 1.0 (<1.2) APTT 21.9 L (22.0-30.0) sec Sodium 140 (137-145) mmol/L Potassium 4.3 (3.5-5.1) mmol/L Chloride 108 H (98-107) mmol/L Carbon Dioxide 23 (22-30) mmol/L Anion Gap 9 mmol/L BUN 17 (7-17) mg/dL Creatinine 0.71 (0.52-1.04) mg/dL Est GFR (CKD-EPI)AfAm >90 (>60 ml/min/1.73 sqM) Est GFR (CKD-EPI)NonAf >90 (>60 ml/min/1.73 sqM) Glucose 97 (74-99) mg/dL Calcium 9.7 (8.4-10.2) mg/dL Magnesium 2.0 (1.6-2.3) mg/dL Total Bilirubin 0.5 (0.2-1.3) mg/dL AST 66 H (14-36) U/L ALT 77 H (4-34) U/L Alkaline Phosphatase 45 (38-126) U/L Troponin I (0.000-0.034) ng/mL Total Protein 7.2 (6.3-8.2) g/dL Albumin 4.3 (3.5-5.0) g/dL 02/14/21 Range/Units 17:28 WBC (3.8-10.6) k/uL RBC (3.80-5.40) m/uL Hgb (11.4-16.0) gm/dL Hct (34.0-46.0) % MCV (80.0-100.0) fL MCH (25.0-35.0) pg MCHC (31.0-37.0) g/dL RDW (11.5-15.5) % Plt Count (150-450) k/uL MPV Neutrophils % % Lymphocytes % % Monocytes % % Eosinophils % % Basophils % % Neutrophils # (1.3-7.7) k/uL Lymphocytes # (1.0-4.8) k/uL Monocytes # (0-1.0) k/uL Eosinophils # (0-0.7) k/uL Basophils # (0-0.2) k/uL PT (9.0-12.0) sec INR (<1.2) APTT (22.0-30.0) sec Sodium (137-145) mmol/L Potassium (3.5-5.1) mmol/L Chloride (98-107) mmol/L Carbon Dioxide (22-30) mmol/L Anion Gap mmol/L BUN (7-17) mg/dL Creatinine (0.52-1.04) mg/dL Est GFR (CKD-EPI)AfAm (>60 ml/min/1.73 sqM) Est GFR (CKD-EPI)NonAf (>60 ml/min/1.73 sqM) Glucose (74-99) mg/dL Calcium (8.4-10.2) mg/dL Magnesium (1.6-2.3) mg/dL Total Bilirubin (0.2-1.3) mg/dL AST (14-36) U/L ALT (4-34) U/L Alkaline Phosphatase (38-126) U/L Troponin I <0.012 (0.000-0.034) ng/mL Total Protein (6.3-8.2) g/dL Albumin (3.5-5.0) g/dL Disposition Clinical Impression: Near syncope, NSVT (nonsustained ventricular tachycardia) Disposition: ADMITTED IP TO THIS [facility] Condition: Serious Referrals: Stephen Liao DO [Primary Care Provider] - 1-2 days Decision to Admit Reason: Admit from EC Decision Date: 02/14/21 Decision Time: 19:27
[2021-02-14] MEDS ORDERED: LORazepam 1 MG TAB PO PRN (20:51)
[2021-02-14] MEDS ORDERED: METOPROLOL SUCCINATE (ER) 25 MG TAB.ER.24H PO STA (20:51)
[2021-02-14] MEDS ORDERED: EZETIMIBE 10 MG TAB PO SCH (21:00)
[2021-02-14] MEDS ORDERED: PARoxetine 20 MG TAB PO SCH (21:00)
[2021-02-14] MEDS ORDERED: METOPROLOL SUCCINATE (ER) 25 MG TAB.ER.24H PO SCH (21:00)
[2021-02-14] MEDS ORDERED: LORazepam 1 MG TAB PO SCH (21:00)
[2021-02-14] MEDS ORDERED: ATORVASTATIN 80 MG TAB PO SCH (21:00)
[2021-02-14] MEDS: BALSALAZIDE DISODIUM 750 MG CAPSULE PO SCH (23:18)
[2021-02-14] MEDS: HYDROcodone/APAP 5-325MG 1 EACH TAB PO PRN (23:50)
[2021-02-15 02:09] VITALS: RESP 16
[2021-02-15] MEDS ORDERED: LEVOTHYROXINE 100 MCG TAB PO SCH (06:30)
[2021-02-15 07:59] VITALS: BP 112/74; PULSE 51; TEMP 98.3
[2021-02-15] MEDS: BALSALAZIDE DISODIUM 750 MG CAPSULE PO SCH (08:19)
[2021-02-15] MEDS: HYDROcodone/APAP 5-325MG 1 EACH TAB PO PRN (08:20)
[2021-02-15] MEDS ORDERED: KETOROLAC 15 MG/ML 1 ML VIAL IVP PRN (08:54)
[2021-02-15] MEDS ORDERED: ASPIRIN 81 MG PO SCH (09:00)
[2021-02-15] MEDS ORDERED: CLOPIDOGREL 75 MG TAB PO SCH (09:00)
[2021-02-15] MEDS ORDERED: ENOXAPARIN 40 MG/0.4 ML SYRINGE SQ SCH (09:00)
--- NOTE | 2021-02-15 10:20 | P.HPIM ---
History of Present Illness Patient is a pleasant 65-year-old female came in with complaints of chest tightness dizziness and the possible palpitations. Patient had an EKG one of them showed a mild sinus bradycardia and another EKG showed what appears like PV Cs. Patient overnight rhythm stents are consistent with PVCs patient was on the Toprol 25 sustained release daily which was recently decreased to 12.5 because of excessive tiredness she was having. She has to cut down her days of work because of tiredness. Patient had history of microinfarction about a year and half ago had stents in the past. REVIEW OF SYSTEMS: CONSTITUTIONAL: No fever, no malaise, no fatigue. HEENT: No recent visual problems or hearing problems. Denied any sore throat. CARDIOVASCULAR: As mentioned in HPI PULMONARY: No shortness of breath, no cough, no hemoptysis. GASTROINTESTINAL: No diarrhea, no nausea, no vomiting, no abdominal pain. NEUROLOGICAL: No headaches, no weakness, no numbness. HEMATOLOGICAL: Denies any bleeding or petechiae. GENITOURINARY: Denies any burning micturition, frequency, or urgency. MUSCULOSKELETAL/RHEUMATOLOGICAL: Denies any joint pain, swelling, or any muscle pain. ENDOCRINE: Denies any polyuria or polydipsia. The rest of the 14-point review of systems is negative. PHYSICAL EXAMINATION: GENERAL: The patient is alert and oriented x3, not in any acute distress. Well developed, well nourished. HEENT: Pupils are round and equally reacting to light. EOMI. No scleral icterus. No conjunctival pallor. Normocephalic, atraumatic. No pharyngeal erythema. No thyromegaly. CARDIOVASCULAR: S1 and S2 present. No murmurs, rubs, or gallops. PULMONARY: Chest is clear to auscultation, no wheezing or crackles. ABDOMEN: Soft, nontender, nondistended, normoactive bowel sounds. No palpable organomegaly. MUSCULOSKELETAL: No joint swelling or deformity. EXTREMITIES: No cyanosis, clubbing, or pedal edema. NEUROLOGICAL: Gross neurological examination did not reveal any focal deficits. SKIN: No rashes. Assessment and plan -Palpitations mild chest pressure: Cardiology evaluated the patient, patient is undergoing exercise stress test, patient's beta kristin dose was increased. -History of fibromyalgia -Hyperlipidemia Hypertension -Coronary artery disease with the stents in the past. -Hypothyroidism -Anxiety disorder. -For above-mentioned chronic medical problems patient will be resumed on appropriate home medications DVT prophylaxis: Early ambulation Past Medical History Past Medical History: Fibromyalgia, Hyperlipidemia, Hypertension, Myocardial Infarction ([place]), Osteoarthritis (OA), Renal Disease, Thyroid Disorder Additional Past Medical History / Comment(s): ULCERATIVE COLITIS,. HX of RHEUMATIC FEVER DID NOT CAUSE CARDIAC DAMAGE, DEGENERATIVE DISC DISEASE, BENIGN CYST ON KIDNEY, stage 3 CKD, fatty liver Last Myocardial Infarction Date:: 10/19/19 History of Any Multi-Drug Resistant Organisms: None Reported Past Surgical History: Adenoidectomy, Breast Surgery, Heart Catheterization With Stent, Orthopedic Surgery, Tonsillectomy, Tubal Ligation, Uterine Ablation Additional Past Surgical History / Comment(s): COLONOSCOPY, EGD. RIGHT HAND T ENDONITIS SURGERY, BENIGN RIGHT BREAST BIOPSY ROUGHLY 40 YRS AGO Past Anesthesia/Blood Transfusion Reactions: No Reported Reaction Date of Last Stent Placement:: 10/20/19 Past Psychological History: Anxiety, PTSD Additional Psychological History / Comment(s): hx of night terrors Smoking Status: Never smoker Past Drug Use History: Marijuana Additional Drug Use History / Comment(s): quit smoking marijuana November 2019 - Past Family History Mother Family Medical History: Dementia Medications and Allergies Home Medications Medication Instructions Recorded Confirmed Type LORazepam [Lorazepam] 1 mg PO BID-W/MEALS PRN 07/01/14 02/14/21 History LORazepam [Lorazepam] 2 mg PO HS 07/01/14 02/14/21 History PARoxetine HCL 60 mg PO HS 07/01/14 02/14/21 History Levothyroxine Sodium [Synthroid] 100 mcg PO DAILY 10/20/19 02/14/21 History Mesalamine [Lialda] 3.6 gm PO HS 10/20/19 02/14/21 History Aspirin 81 mg PO DAILY chew 10/21/19 02/14/21 Rx Clopidogrel [Plavix] 75 mg PO DAILY #90 tab 10/21/19 02/14/21 Rx Metoprolol Succinate (ER) [Toprol 12.5 mg PO HS 01/31/20 02/14/21 History XL] Rosuvastatin [Crestor] 40 mg PO HS 09/28/20 02/14/21 History Ezetimibe [Zetia] 10 mg PO HS 02/14/21 02/14/21 History Allergies Allergy/AdvReac Type Severity Reaction Status Date / Time Penicillins Allergy Rash/Hives Verified 02/14/21 19:55 Sulfa (Sulfonamide Allergy Rash/Hives Verified 02/14/21 19:55 Antibiotics) venom-honey bee Allergy Anaphylaxis Verified 02/14/21 19:55 [bee venom (honey bee)] Physical Exam Vitals: Vital Signs Temp Pulse Pulse Resp BP BP Pulse Ox 02/15/21 07:10 98.3 F 51 L 16 112/74 96 02/15/21 02:00 98.5 F 52 L 16 118/66 94 L 02/14/21 23:48 97.9 F 58 L 18 122/69 97 02/14/21 23:20 18 02/14/21 21:00 98.7 F 69 18 126/71 99 02/14/21 18:50 16 02/14/21 17:16 98.8 F 60 20 157/82 96 Intake and Output 02/14/21 02/15/21 02/15/21 22:59 06:59 14:59 Other: Voiding Method Toilet Toilet # Voids 2 Weight 81.647 kg 81.647 kg Results CBC & Chem 7: 02/14/21 17:28 02/14/21 17:28 Labs: Abnormal Lab Results - Last 24 Hours (Table) 02/14/21 02/14/21 Range/Units 17:28 17:28 APTT 21.9 L (22.0-30.0) sec Chloride 108 H (98-107) mmol/L AST 66 H (14-36) U/L ALT 77 H (4-34) U/L Thrombosis Risk Factor Assmnt - Choose All That Apply Each Factor Represents 1 point: Obesity (BMI >25) Each Risk Factor Represents 2 Points: Age 61-74 years Thrombosis Risk Factor Assessment Total Risk Factor Score: 3 Thrombosis Risk Factor Assessment Level: Moderate Risk
--- NOTE | 2021-02-15 12:06 | CONS ---
CONSULTATION CHIEF COMPLAINT: Chest pain and palpitations. Kamini is a 65-year-old lady with history of coronary artery disease, status post angioplasty with stent placement of LAD, ulcerative colitis, dyslipidemia and COPD who presents to hospital complaining of chest pain and palpitations. She has had these symptoms for a while and underwent a stress Cardiolite study in December of 2020 wherein she had EKG changes with a questionable area of ischemia in the diagonal distribution. Patient had a cardiac catheterization last year that showed patent stent in the LAD and the diagonal branch with some ostial lesion that has not progressed much, and she was advised medical therapy. Since coming into hospital, she has had these runs of regular narrow complex tachycardia suggestive of atrial tachycardia. They last for about 3 to 4 beats and resolve spontaneously. She is [id number] and does not have any shortness of breath. EKG does not reveal ischemic changes and the first set of troponin is negative. PAST MEDICAL HISTORY: Significant for inflammatory bowel disease, chronic pain, coronary artery disease, status post angioplasty, hypothyroidism and dyslipidemia. MEDICATIONS: Medications at home include aspirin, Plavix, levothyroxine, metoprolol, paroxetine, Crestor, tramadol, Zetia. ALLERGIES: NO KNOWN DRUG ALLERGIES. FAMILY HISTORY: Negative for premature coronary artery disease. SOCIAL HISTORY: Negative for smoking, EtOH abuse or drug abuse. REVIEW OF SYSTEMS: HEENT is unremarkable. CARDIAC: As described above. RESPIRATORY: As described above. GI: Negative. GENITOURINARY: Negative. ALLERGY/IMMUNOLOGY: Negative. SKIN: Negative. MUSCULOSKELETAL: Negative. ENDOCRINE: Negative. DERMATOLOGY: Negative. CONSTITUTIONAL: Negative. ONCOLOGICAL: Negative. Rest of the system review is not relevant. PHYSICAL EXAMINATION: Patient is comfortable at rest. Vital signs are stable. There is no jugular venous distention. Carotid upstroke is normal. There is no bruit. Chest exam reveals good air entry bilaterally. Heart exam reveals first and second heart sounds. No gallop. No murmur. No rub. Abdomen is soft, nontender. Examination of extremities did not reveal any edema. Peripheral pulses are felt. ASSESSMENT: 1. Precordial chest pain. 2. Atrial tachycardia. 3. Hypertension. 4. Dyslipidemia. PLAN: Patient has decreased the dose of Toprol recently, and that could be the reason why she is having the palpitations. I am going to increase the dose to 25 mg daily and she will take it in the morning. I will get another set of troponin, and if that is negative, I will do a stress echo on her. I will also obtain a 2D echo. 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 SAVANAH / JOHN: [id number] /
--- NOTE | 2021-02-15 12:25 | P.DS ---
Providers Date of admission: 02/15/21 10:17 Attending physician: Chayo Freire Consults: 02/14/21 19:18 Consult Physician Routine Consulting Provider: Kaleb Gonzalez Consult Reason/Comments: Runs of Vtach Do you want consulting provider notified?: Yes Primary care physician: Stephen Liao [facility] Course: Final diagnoses -Palpitations mild chest pressure -History of fibromyalgia -Hyperlipidemia -Hypertension -Coronary artery disease s/p stents -Hypothyroidism -Anxiety disorder. Discharge disposition Patient is discharged home in a stable condition to follow up with her car diologist. She is sent in increased dose in her Toprol-XL to 25 mg daily and she can take this in the morning. Hospital course This is a pleasant 65 old female who came in with a history of coronary artery disease status post stenting to the LAD. Patient presented to the hospital with symptoms of chest pain and palpitations. She had a stress Cardiolite in December 2020 during which there were EKG changes suspicious for ischemia and the diagonal distribution. Patient had a cardiac catheterization last her that showed patent stent to the LAD in the diagonal branch with some ostial lesion that has not progressed and has continued with medical therapy. This admission patient has had runs of regular narrow complex tachycardia suggestive of atrial tachycardia for 3-4 beats and then resolve spontaneously. She is chest pain- free, denies cough, shortness of breath. There are no EKG changes to reveal ischemia and troponins have been negative 2. Patient had an echocardiogram completed and underwent a stress EKG. After speaking with cardiology there was no concern and patient is discharged home. Toprol XL has been increased to 25 mg by mouth daily. Possibility that a recent reduction in her Toprol-XL dosing has attributed to the runs of tachycardia. She will follow up with her history card clerk. Chest x-ray this admission showed a normal chest. Her blood count panel was unremarkable. Her AST and ALT are mildly elevated at 66 and 77. She can recheck these in 2-3 days outpatient. Vital signs remained stable, afebrile, heart rate 51 sinus bradycardia, blood pressure 112/74, 96% on room air. Covid PCR was negative. TSH was low normal at 0.825. Please see medication reconciliation for list of current medications. Thank you for allowing us to participate in the care of this patient. Please see HPI for examination and review of systems. Patient Condition at Discharge: Fair Plan - Discharge Summary New Discharge Prescriptions: New Metoprolol Succinate (ER) [Toprol XL] 25 mg PO HS #30 tablet Continue PARoxetine HCL 60 mg PO HS LORazepam [Lorazepam] 1 mg PO BID-W/MEALS PRN PRN Reason: Anxiety LORazepam [Lorazepam] 2 mg PO HS Levothyroxine Sodium [Synthroid] 100 mcg PO DAILY Mesalamine [Lialda] 3.6 gm PO HS Aspirin 81 mg PO DAILY chew Clopidogrel [Plavix] 75 mg PO DAILY #90 tab Rosuvastatin [Crestor] 40 mg PO HS Ezetimibe [Zetia] 10 mg PO HS Discontinued Metoprolol Succinate (ER) [Toprol XL] 12.5 mg PO HS Discharge Medication List LORazepam [Lorazepam] 1 mg PO BID-W/MEALS PRN 07/01/14 [History] LORazepam [Lorazepam] 2 mg PO HS 07/01/14 [History] PARoxetine HCL 60 mg PO HS 07/01/14 [History] Levothyroxine Sodium [Synthroid] 100 mcg PO DAILY 10/20/19 [History] Mesalamine [Lialda] 3.6 gm PO HS 10/20/19 [History] Aspirin 81 mg PO DAILY chew 10/21/19 [Rx] Clopidogrel [Plavix] 75 mg PO DAILY #90 tab 10/21/19 [Rx] Rosuvastatin [Crestor] 40 mg PO HS 09/28/20 [History] Ezetimibe [Zetia] 10 mg PO HS 02/14/21 [History] Metoprolol Succinate (ER) [Toprol XL] 25 mg PO HS #30 tablet 02/15/21 [Rx] Follow up Appointment(s)/Referral(s): Stephen Liao DO [Primary Care Provider] - 1-2 days Kiesha Arriaga MD [STAFF PHYSICIAN] - 1 Week Ambulatory/Diagnostic Orders: ALT [LAB.AMB] Time Frame: 2 Days, Location: None Selected AST [LAB.AMB] Time Frame: 2 Days, Location: None Selected Patient Instructions/Handouts: Syncope (DC) Activity/Diet/Wound Care/Special Instructions: Patient is to follow-up with her history card clerk Discharge Disposition: HOME SELF-CARE
--- NOTE | 2021-02-15 15:47 | ECHOS ---
STRESS ECHOCARDIOGRAM INDICATIONS: Chest pain and dizziness. BASELINE HEART RATE: 71 BASELINE BLOOD PRESSURE: 124/75 MAXIMUM HEART RATE: 138 MAXIMUM BLOOD PRESSURE: 172/64 85% MPHR: 133 100% MPHR: 157 METS: 9.9 MAXIMUM STAGE REACHED: III TOTAL EXERCISE TIME: 8:20 CLINICAL INFORMATION: Baseline EKG shows sinus rhythm, normal axis, normal intervals. Patient exercised on Terrence protocol for a total of 8-1/2 minutes, achieving 9.5 METS, 85% of predicted maximal heart rate, without chest pain. She had shortness of breath and [address]- segment depression in the inferolateral leads. Baseline echo shows normal left ventricular size, wall motion and systolic function. Post exercise there is normal hyperdynamic response of all segments of myocardium noted. CONCLUSIONS: 1. Good exercise tolerance. 2. Abnormal stress test by EKG criteria. 3. Negative stress echo. SAVANAH / JOHN: [id number] /
[2021-02-15] MEDS ORDERED: METOPROLOL SUCCINATE (ER) 25 MG TAB.ER.24H PO SCH ×3 (21:00)
== END 2021-02-15 13:11 | disposition home or self-care (01) | DRG 309 ==
LOC: EC 17:08 → 6NMEDSUR 19:15 → OBSVTOIN 02-15 10:17
PROVIDERS: ADMIT Hospitalist; ATTEND Hospitalist
DX: I47.2 Ventricular tachycardia (principal); K51.90 Ulcerative colitis, unspecified, without complications; I47.1 Supraventricular tachycardia; R00.1 Bradycardia, unspecified; I49.3 Ventricular premature depolarization; Z20.822 Contact with and (suspected) exposure to COVID-19; E03.9 Hypothyroidism, unspecified; J44.9 Chronic obstructive pulmonary disease, unspecified; E78.5 Hyperlipidemia, unspecified; F43.10 Post-traumatic stress disorder, unspecified; I12.9 Hypertensive chronic kidney disease with stage 1 through stage 4 chronic kidney disease, or unspecified chronic kidney disease; N18.30 Chronic kidney disease, stage 3 unspecified; I25.10 Atherosclerotic heart disease of native coronary artery without angina pectoris; I25.2 Old myocardial infarction; K76.0 Fatty (change of) liver, not elsewhere classified; M79.7 Fibromyalgia; Z79.02 Long term (current) use of antithrombotics/antiplatelets; Z79.82 Long term (current) use of aspirin; Z79.890 Hormone replacement therapy; Z79.899 Other long term (current) drug therapy; Z95.5 Presence of coronary angioplasty implant and graft
CPT/HCPCS: 36415; 71046; 80053; 83735; 84443; 84484; 85025; 85610; 85730; 87635; 93005; 93306; 93351; 99285

== ENCOUNTER → 2021-02-23 | Outpatient (CLI) | payer MEDICARE, OTHER ==
--- NOTE | 2021-02-23 07:40 | MR ---
EXAMINATION TYPE: MR lumbar spine wo con DATE OF EXAM: 02/23/2021 COMPARISON: NONE HISTORY: Chronic low back pain TECHNIQUE: Multiplanar, multisequence imaging of the lumbar spine is performed without IV contrast. FINDINGS: Sagittal images of the lumbar spine show vertebral body heights to appear satisfactory. Sub tle grade 1 anterolisthesis L3 on L4. Multilevel disc desiccation but this space heights are maintain ed. The conus medullaris is normal in position and signal ending inferior L1 level. Few small Tarlov cysts at posterior S2 level sagittal image 7 for reference. The bone marrow signal intensity is with in normal limits. Axial images at T12-L1 level appear within normal limits. Axial images at L1-L2 levels are mild broad disc bulge minimally effaces the anterior thecal sac. Pat ent bilateral neural foramina. Axial images at L2-L3 level show mild facet arthropathy and ligamentum flavum hypertrophy. Axial images at L3-L4 level show spondylolisthesis with moderate facet arthropathy and ligamentum fla vum hypertrophy effacing posterior lateral thecal sac on sagittal image 7 and axial image 13. Patent bilateral neural foramina. Axial images at L4-L5 level shows subtle spondylolisthesis or grade 1 retrolisthesis L4 and L5. There is mild to moderate facet arthropathy and ligamentum flavum hypertrophy mildly effacing posterior la teral thecal sac. There is mild broad-based posterior disc protrusion minimally effacing the anterior thecal sac. There is moderate right and mild left sided anterior inferior neural foraminal narrowing . Axial images at the L5-S1 levels with [id number] facet arthropathy bilaterally. Spinal canal is preserved. Patent bilateral neural foramina. There are rounded T2 hyperintense lesions throughout both kidneys, largest on the left is only partia lly imaged measuring 6.8 cm AP diameter axial image 21 favoring large thin-walled cyst. Findings leslie elate with CT abdomen and pelvis study 2018. IMPRESSION: Spondylolisthesis and degenerative changes in the mid to lower lumbar spine as detailed a charleen.
== END | disposition home or self-care (01) ==
LOC: RADMRIMAIN 05:55
PROVIDERS: ATTEND Family Medicine
DX: M43.16 Spondylolisthesis, lumbar region (principal); M47.816 Spondylosis without myelopathy or radiculopathy, lumbar region; M51.26 Other intervertebral disc displacement, lumbar region; M99.73 Connective tissue and disc stenosis of intervertebral foramina of lumbar region
CPT/HCPCS: 72148

== ENCOUNTER 2021-03-05 09:08 | Emergency (ER) | payer MEDICARE, OTHER ==
--- NOTE | 2021-03-05 11:47 | ED ---
General Adult HPI <Jerome Yu - Last Filed: 03/05/21 11:46> <Silvestre Santoyo - Last Filed: 03/05/21 15:53> - General Stated complaint: Cough,body aches - History of Present Illness Initial comments: Patient was seen for advanced triage purposes in triage [place]: 65-year-old female with a past medical history of fibromyalgia, hyperlipidemia, hypertension, [place] presents to the emergency room for not feeling well. Patient has had a cough and body aches or 4 days now. She is concerned that she could've pneumonia. States that she is coughing up green phlegm. She has had congestion. No fevers. Patient called her regular doctor and was told she could not be seen this week.Patient has no other complaints at this time including shortness of breath, chest pain, abdominal pain, nausea or vomiting, headache, or visual changes. (Jerome Yu) - Related Data Home Medications Medication Instructions Recorded Confirmed LORazepam [Lorazepam] 1 mg PO BID-W/MEALS PRN 07/01/14 03/05/21 LORazepam [Lorazepam] 2 mg PO HS 07/01/14 03/05/21 PARoxetine HCL 60 mg PO DAILY 07/01/14 03/05/21 Levothyroxine Sodium [Synthroid] 100 mcg PO DAILY 10/20/19 03/05/21 Mesalamine [Lialda] 3.6 gm PO HS 10/20/19 03/05/21 Ezetimibe [Zetia] 10 mg PO HS 02/14/21 03/05/21 Rosuvastatin Calcium [Crestor] 40 mg PO HS 03/05/21 03/05/21 Previous Rx's Medication Instructions Recorded Aspirin 81 mg PO DAILY chew 10/21/19 Clopidogrel [Plavix] 75 mg PO DAILY #90 tab 10/21/19 Metoprolol Succinate (ER) [Toprol 25 mg PO HS #30 tablet 02/15/21 XL] Doxycycline Hyclate 100 mg PO BID 10 Days #20 tab 03/05/21 Allergies Allergy/AdvReac Type Severity Reaction Status Date / Time Penicillins Allergy Rash/Hives Verified 03/05/21 13:55 Sulfa (Sulfonamide Allergy Rash/Hives Verified 03/05/21 13:55 Antibiotics) venom-honey bee Allergy Anaphylaxis Verified 03/05/21 13:55 [bee venom (honey bee)] Review of Systems ROS Other: All systems not noted in ROS Statement are negative. <Jerome Yu - Last Filed: 03/05/21 11:46> ROS Other: All systems not noted in ROS Statement are negative. <Silvestre Santoyo - Last Filed: 03/05/21 15:53> ROS Statement: Those systems with pertinent positive or pertinent negative responses have been documented in the HPI. Past Medical History Past Medical History: Fibromyalgia, Hyperlipidemia, Hypertension, Myocardial Infarction ([place]), Osteoarthritis (OA), Renal Disease, Thyroid Disorder Additional Past Medical History / Comment(s): ULCERATIVE COLITIS,. HX of RHEUMATIC FEVER DID NOT CAUSE CARDIAC DAMAGE, DEGENERATIVE DISC DISEASE, BENIGN CYST ON KIDNEY, stage 3 CKD, fatty liver Last Myocardial Infarction Date:: 10/19/19 History of Any Multi-Drug Resistant Organisms: None Reported Past Surgical History: Adenoidectomy, Breast Surgery, Heart Catheterization With Stent, Orthopedic Surgery, Tonsillectomy, Tubal Ligation, Uterine Ablation Additional Past Surgical History / Comment(s): COLONOSCOPY, EGD. RIGHT HAND TENDONITIS SURGERY, BENIGN RIGHT BREAST BIOPSY ROUGHLY 40 YRS AGO Past Anesthesia/Blood Transfusion Reactions: No Reported Reaction Date of Last Stent Placement:: 10/20/19 Past Psychological History: Anxiety, PTSD Additional Psychological History / Comment(s): hx of night terrors Smoking Status: Never smoker Past Drug Use History: Marijuana Additional Drug Use History / Comment(s): quit smoking marijuana November 2019 - Past Family History Mother Family Medical History: Dementia <Jerome Yu P - Last Filed: 03/05/21 11:46> General Exam General appearance: alert, in no apparent distress Head exam: Present: atraumatic Eye exam: Present: normal appearance, PERRL, EOMI ENT exam: Present: normal exam, mucous membranes moist Respiratory exam: Absent: respiratory distress <Jerome Yu - Last Filed: 03/05/21 11:46> General appearance: alert, in no apparent distress Head exam: Present: atraumatic, normocephalic, normal inspection Eye exam: Present: normal appearance, PERRL, EOMI. Absent: scleral icterus, conjunctival injection, periorbital swelling ENT exam: Present: normal exam, mucous membranes moist Neck exam: Present: normal inspection. Absent: tenderness, meningismus, lymphadenopathy Respiratory exam: Present: normal lung sounds bilaterally. Absent: respiratory distress, wheezes, rales, rhonchi, stridor Cardiovascular Exam: Present: regular rate, normal rhythm, normal heart sounds. Absent: systolic murmur, diastolic murmur, rubs, gallop, clicks GI/Abdominal exam: Present: soft, normal bowel sounds. Absent: distended, tenderness, guarding, rebound, rigid Extremities exam: Present: normal inspection, full ROM, normal capillary refill. Absent: tenderness, pedal edema, joint swelling, calf tenderness Back exam: Present: normal inspection Neurological exam: Present: alert, oriented X3, CN II-XII intact Psychiatric exam: Present: normal affect, normal mood Skin exam: Present: warm, dry, intact, normal color. Absent: rash <Silvestre Santoyo - Last Filed: 03/05/21 15:53> Course Vital Signs 03/05/21 03/05/21 11:45 14:35 Temperature 97.6 F 98.1 F Pulse Rate 55 L 59 L Respiratory 18 16 Rate Blood Pressure 114/67 101/63 O2 Sat by Pulse 98 92 L Oximetry Medical Decision Making <Silvestre Santoyo - Last Filed: 03/05/21 15:53> - Medical Decision Making Patient presents with a cough. Her chest x-ray shows a possible pneumonia, and her Covid test is negative. She has a history of COPD. I started her on doxycycline. Vital signs are within acceptable limits. She is not hypoxic. She is stable for discharge. (Silvestre Santoyo) - Lab Data Lab Results 03/05/21 Range/Units 11:52 Coronavirus (PCR) Not Detected (Not Detectd) Disposition <Jerome Yu - Last Filed: 03/05/21 11:46> Is patient prescribed a controlled substance at d/c from ED?: No <Silvestre Santoyo - Last Filed: 03/05/21 15:53> Clinical Impression: Bronchitis Disposition: HOME SELF-CARE Condition: Good Instructions (If sedation given, give patient instructions): Upper Respiratory Infection (ED) Prescriptions: Doxycycline Hyclate 100 mg PO BID 10 Days #20 tab Referrals: Stephen Liao DO [Primary Care Provider] - 1-2 days
--- NOTE | 2021-03-05 12:21 | XR ---
EXAMINATION TYPE: XR chest 2V DATE OF EXAM: 03/05/2021 COMPARISON: 02/14/2021 HISTORY: 65-year-old female with cough TECHNIQUE: PA and lateral views FINDINGS: Heart limits of normal in size. Aorta and pulmonary vasculature within normal limits. Hyperinflation. Interstitial prominence is unchanged. No consolidation or pleural effusion. IMPRESSION: Similar COPD and borderline heart size. No acute process identified.
[2021-03-05 14:38] VITALS: BP 101/63; PULSE 59; RESP 16; TEMP 98.1
[2021-03-05] MEDS ORDERED: DOXYCYCLINE 100 MG CAP PO STA (15:14)
== END 2021-03-05 16:04 | disposition home or self-care (01) ==
LOC: EC 09:08
DX: J40 Bronchitis, not specified as acute or chronic (principal); I12.9 Hypertensive chronic kidney disease with stage 1 through stage 4 chronic kidney disease, or unspecified chronic kidney disease; N18.30 Chronic kidney disease, stage 3 unspecified; E78.5 Hyperlipidemia, unspecified; F41.9 Anxiety disorder, unspecified; I25.2 Old myocardial infarction; J44.9 Chronic obstructive pulmonary disease, unspecified; M19.90 Unspecified osteoarthritis, unspecified site; M79.7 Fibromyalgia; F12.90 Cannabis use, unspecified, uncomplicated; Z79.02 Long term (current) use of antithrombotics/antiplatelets; Z79.82 Long term (current) use of aspirin; Z79.899 Other long term (current) drug therapy; Z88.0 Allergy status to penicillin; Z88.2 Allergy status to sulfonamides; Z79.890 Hormone replacement therapy; Z20.822 Contact with and (suspected) exposure to COVID-19
CPT/HCPCS: 71046; 87635; 99284

== ENCOUNTER 2021-03-13 10:54 | Day surgery (SDC) | payer MEDICARE, OTHER ==
[2021-03-09 08:58] VITALS: BMI 29.7
[~2021-03-13 10:54] MED LIST changes: +ALPRAZolam 0.25 MG TAB PO PRN; +ALPRAZolam 0.5 MG TAB PO PRN; +ASPIRIN 325 MG TAB PO STA; +HEPARIN SODIUM,PORCINE 10,000 UNIT in SODIUM CHLORIDE 0.9% 1,000 ML IRRIGATION PRN; +HEPARIN SODIUM,PORCINE 2,500 UNIT in SODIUM CHLORIDE 0.9% 250 ML IRRIGATION PRN; -LACTATED RINGERS 1,000 ML IV SCH; -LIDOCAINE 1% (10MG/ML) FOR IV START INTRADERMA PRN; +NITROGLYCERIN SL TABS 0.4 MG TAB SUBLINGUAL PRN
[2021-03-13] MEDS ORDERED: VERAPAMIL 2.5 MG/ML 2 ML AMP ONE (11:27)
[2021-03-13] MEDS ORDERED: LIDOCAINE 1% INJ 10MG/ML (20 ML MDV) ONE (11:27)
[2021-03-13] MEDS: SODIUM CHLORIDE 0.9% 1,000 ML in EMPTY BAG 1 BAG IV SCH ×2 (11:32→17:49)
[2021-03-13] MEDS ORDERED: HEPARIN SODIUM 1,000 UN/ML (10ML VL) ONE (11:41)
[2021-03-13] MEDS ORDERED: fentaNYL (PF) 50 MCG/ML 2 ML AMP ONE (11:41)
[2021-03-13] MEDS: fentaNYL (PF) 50 MCG/ML 2 ML AMP IV ONE ×2 (11:55→12:21)
[2021-03-13] MEDS ORDERED: LIDOCAINE 1% INJ 10MG/ML (20 ML MDV) SQ ONE (11:59)
[2021-03-13] MEDS: MIDAZOLAM 2 MG/2 ML VIAL IV ONE ×2 (12:00→12:25)
[2021-03-13] MEDS ORDERED: VERAPAMIL SYRINGE (5 MG/10 ML) INTRAARTER ONE (12:01)
[2021-03-13] MEDS: HEPARIN SODIUM 1,000 UN/ML (10ML VL) IV ONE ×2 (12:05→12:21)
[2021-03-13] MEDS ORDERED: IOPAMIDOL-370 125ML BTL INJ ONE ×2 (12:13→12:38)
[2021-03-13] MEDS ORDERED: NITROGLYCERIN 1000MCG/10ML SYRINGE INTRACORON ONE (12:28)
[2021-03-13] MEDS ORDERED: IOPAMIDOL-370 100ML BTL INJ ONE (13:10)
[2021-03-13] MEDS ORDERED: SODIUM CHLORIDE 0.9% 1,000 ML IV SCH (13:30)
[2021-03-13] MEDS ORDERED: MAG HYDROX/AL HYDROX/SIMETH 30 ML CUP PO PRN (13:30)
[2021-03-13] MEDS ORDERED: ATROPINE SULFATE 0.1 MG/ML 10ML SYRINGE IV PRN (13:30)
[2021-03-13] MEDS ORDERED: RX INFO: IV CONTRAST WAS GIVEN 1 EACH MISC MISCELLANE PRN (13:30)
[2021-03-13] MEDS ORDERED: NITROGLYCERIN SL TABS 0.4 MG TAB SUBLINGUAL PRN (13:30)
[2021-03-13] MEDS ORDERED: ZOLPIDEM 5 MG TAB PO PRN (13:30)
[2021-03-13] MEDS ORDERED: LORazepam 1 MG TAB PO PRN (13:31)
--- NOTE | 2021-03-13 15:14 | CC ---
CARDIAC CATHETERIZATION REPORT Mrs. Hidalgo is a 65-year-old female with known history of coronary artery disease status post stenting of the diagonal branch in the LAD in October of 2019 who has been followed by Dr. Gonzalez and recently he has been complaining of progressive symptoms and dyspnea on exertion reminding her of the way she felt prior to the stenting. She had a stress test that showed a possible diagonal branch territory ischemia. In view of that, recommendation was made regarding cardiac catheterization. The procedure as well as the risks and the complications were discussed with the patient who is in full understanding and agreement. PROCEDURE DESCRIPTION: Patient was brought to the recyclable products sorter in a fasting semi-sedated state after receiving fentanyl and Benadryl and achieving moderate conscious sedated state using Xylocaine anesthesia/Seldinger technique a 6-Guamanian sheath was introduced in the right radial artery. Selective right and left coronary angiography performed using 5-Guamanian 3.5 bend right and left Yasmin catheter. Multiple views of the coronary artery including hemiaxial views were obtained. Following that, a 5-Guamanian tight pigtail catheter was introduced into the left ventricle and pressures were calculated. Following that, catheter was removed, images were reviewed. FINDINGS: LEFT MAIN: This is a large-sized vessel bifurcating into left circumflex, left anterior descending artery, left main coronary artery has no evidence of high-grade stenosis. LEFT ANTERIOR DESCENDING ARTERY is a large-sized vessel reaching to the apex with a wraparound apex segment giving rise to a large proximal diagonal branch. The stented segment in the LAD is patent. There is mild intimal restenoses of 10% to 20% percent. The ostium of the diagonal branch has a 99% stenosis. The flow into the diagonal branch beyond the ostium is brisk and the stent is patent. LEFT CIRCUMFLEX: This is a nondominant vessel, moderate in caliber giving rise to 2 obtuse marginal branches. The left circumflex and its branches have no evidence of obstructive coronary artery disease. RIGHT CORONARY ARTERY: This is a large dominant vessel bifurcating into PDA and posterolateral segment branches. The right coronary artery has 20% to 30% plaque in the mid segment. The rest of the vessel has no high-grade stenosis. LEFT VENTRICULOGRAM: Left ventriculogram was not performed. HEMODYNAMICS: There was no gradient across the aortic valve. The left ventricular end-diastolic pressure was 12-16 mmHg. CONCLUSION: 1. Critical stenosis involving the ostium of the diagonal branch. 2. Mild in-stent restenosis of the LAD. 3. Mild disease in the right coronary artery. RECOMMENDATIONS: In view of findings and anatomy, I recommend proceeding with angioplasty and stenting of the diagonal branch. The procedure as well as risks and complications were discussed with the patient who is in full understanding and agreement. MMODL / IJN: [id number] /
--- NOTE | 2021-03-13 15:17 | PTCA ---
PERCUTANEOUSTRANS CORORONARY ANGIOGRAPHY Mrs. Hidalgo is a 65-year-old female with known history of coronary artery disease who has been complaining of progressive dyspnea on exertion, was evaluated by Dr. Gonzalez, had possible ischemia in the diagonal branch territory on her nuclear scan, underwent cardiac catheterization and was found to have 99% stenosis involving the ostium of the diagonal branch. In view of that, recommendation was made regarding angioplasty and stenting. The procedure as well as risks and complications were discussed with the patient, who was in full understanding and agreement. PROCEDURE DESCRIPTION: A 6-Arabic EBU 3.75 guiding catheter was introduced into the system. After cannulating the ostium of the left main, a 0.014 balanced medium weight J-wire was advanced and positioned in the distal diagonal branch. Subsequently another 0.014 balanced medium weight J-wire was advanced and positioned in the distal LAD. Subsequently a 2.5 x 12 mm Trek balloon was advanced and 2 inflations at the ostium of the diagonal branch were performed. Following that, the balloon was removed and a 3.0 x 12 mm NC Xience Skypoint stent was advanced and positioned in the diagonal branch. Subsequently a 2.5 x 12 mm Trek balloon was advanced into the LAD and positioned distally. The stent was positioned, deployed and post-dilated at 14 atmospheres. Following that, the LAD balloon was pulled back into the bifurcation and multiple inflations to a maximum of 10 atmospheres were done. Following that, the balloon was removed and a 3.0 x 12 mm NC Trek balloon was advanced into the LAD and multiple inflations to a maximum of 12 atmospheres at the bifurcation were done. Following that, the balloon was removed and a 3.0 x 12 mm NC Trek balloon was advanced over the diagonal branch inflations in the ostium of the diagonal branch were performed at maximum of 12 atmospheres. After removing the balloon, a 2.5 x 12 mm Trek balloon was advanced into the diagonal branch. Inflations to a maximum of 12 atmospheres were done. After the last inflation, after appropriate wait, the balloon and the guidewire were withdrawn back into the guiding catheter. Images were obtained and repeated. Those images revealed stable successful stenting. At that point, the guiding catheter, the balloon and the guidewire were removed. The sheath was removed. Hemostasis was obtained with deployment of a TR band. There was no immediate complication. Patient was returned to her room in stable condition. Of note, the patient had shoulder discomfort reminding her of her anginal pain that resolved at the end of the procedure. She received a total of 7000 units of intravenous heparin and was continued on clopidogrel. She received intra-arterial verapamil. Her ACT was followed. RESULTS: Successful stenting of the ostium of the first diagonal branch with reduction of stenosis from 99% to 0%. RECOMMENDATIONS: Patient will be continued on aspirin, Plavix, statin. The importance of dual antiplatelet treatment was discussed with the patient, who is in full understanding and agreement. She will continue dual antiplatelet treatment for one year. Those findings and recommendations were discussed with the patient, who is in full understanding and agreement. Galen of sedation was 68 minutes. MMODL / IJN: [id number] /
[2021-03-13] MEDS: ACETAMINOPHEN TAB 325 MG TAB PO PRN (16:38)
[2021-03-13] MEDS: BALSALAZIDE DISODIUM 750 MG CAPSULE PO SCH (20:52)
[2021-03-13] MEDS ORDERED: ATORVASTATIN 80 MG TAB PO SCH (21:00)
[2021-03-13] MEDS ORDERED: METOPROLOL SUCCINATE (ER) 25 MG TAB.ER.24H PO SCH (21:00)
[2021-03-13] MEDS ORDERED: LORazepam 1 MG TAB PO SCH (21:00)
[2021-03-13] MEDS ORDERED: EZETIMIBE 10 MG TAB PO SCH (21:00)
[2021-03-14] MEDS: ACETAMINOPHEN TAB 325 MG TAB PO PRN (01:13)
[2021-03-14 01:57] VITALS: PULSE 54
[2021-03-14] MEDS: SODIUM CHLORIDE 0.9% 1,000 ML in EMPTY BAG 1 BAG IV SCH (05:57)
[2021-03-14] MEDS ORDERED: LEVOTHYROXINE 100 MCG TAB PO SCH (06:30)
[2021-03-14 08:02] LABS: ALT 20 U/L (4-34); AST 27 U/L (14-36); African American GFR (CKD) >90 (>60 ml/min/1.73 sqM); Albumin 3.7 g/dL (3.5-5.0); Albumin/Globulin Ratio 1.4; Alkaline Phosphatase 40 U/L (38-126); Anion Gap 5 mmol/L; Blood Urea Nitrogen 19 mg/dL (7-17); Carbon Dioxide 26 mmol/L (22-30); Chloride 106 mmol/L (98-107); Globulin 2.7 g/dL; Glucose 98 mg/dL (74-99); Non-African American GFR(CKD) 81 (>60 ml/min/1.73 sqM); Potassium 4.3 mmol/L (3.5-5.1); Sodium 137 mmol/L (137-145); Total Protein 6.4 g/dL (6.3-8.2)
[2021-03-14 08:30] VITALS: BP 109/70; RESP 20; TEMP 97.6
[2021-03-14] MEDS ORDERED: CLOPIDOGREL 75 MG TAB PO SCH (09:00)
[2021-03-14] MEDS ORDERED: PARoxetine 20 MG TAB PO SCH (09:00)
[2021-03-14] MEDS ORDERED: ASPIRIN 81 MG PO SCH (09:00)
--- NOTE | 2021-03-14 09:14 | PN ---
PROGRESS NOTE Mrs. Hidalgo is a 65-year-old female with known history of coronary artery disease, status post angioplasty and stenting of the LAD and diagonal branch in October of 2019, who presented with symptoms of progressive dyspnea on exertion reminding her of the way she felt prior to the intervention. She had abnormal myocardial perfusion imaging and underwent cardiac catheterization that revealed the ostial diagonal branch with severe stenosis. In view of that, she underwent stenting of that segment. She is doing well this morning, ambulating without difficulty. She is denying any chest pain. No dizziness. No palpitations. She has chronic back pain. She continues to be on aspirin once a day, Lipitor 80 mg daily, Plavix 75 mg daily, Zetia 10 mg daily, metoprolol succinate 12.5 mg daily. PHYSICAL EXAMINATION: Blood pressure 103/59 with a heart rate in 50s. LUNGS: Clear. HEART: Regular rate and rhythm. S1, S2. No S3. No rub. ABDOMEN: Soft, nontender. EXTREMITIES: No edema. Right radial pulse intact. EKG revealed no acute changes. IMPRESSION: 1. Status post stenting of the ostium of the diagonal branch. 2. Status post stenting of the LAD in October of 2019. 3. Hyperlipidemia. RECOMMENDATIONS: Patient will be discharged home today and followed as an outpatient with Dr. Gonzalez. MMTAYLORL / ANCAN: [id number] /
[2021-03-14] MEDS: BALSALAZIDE DISODIUM 750 MG CAPSULE PO SCH (09:15)
== END 2021-03-14 09:39 | disposition home or self-care (01) ==
LOC: CATHCVL 10:54 → 6NMEDSUR 13:06 → CATHCVL 03-14 09:39
PROVIDERS: ATTEND Internal Medicine Interventional Cardiology
DX: I25.10 Atherosclerotic heart disease of native coronary artery without angina pectoris (principal); T82.855A Stenosis of coronary artery stent, initial encounter; Z20.822 Contact with and (suspected) exposure to COVID-19; I47.1 Supraventricular tachycardia; I34.0 Nonrheumatic mitral (valve) insufficiency; E78.5 Hyperlipidemia, unspecified; G89.29 Other chronic pain; M54.9 Dorsalgia, unspecified; Z79.82 Long term (current) use of aspirin; Z79.899 Other long term (current) drug therapy; Z79.02 Long term (current) use of antithrombotics/antiplatelets; Z88.1 Allergy status to other antibiotic agents; Z91.030 Bee allergy status; Z88.0 Allergy status to penicillin; Z88.2 Allergy status to sulfonamides; Z82.49 Family history of ischemic heart disease and other diseases of the circulatory system
CPT/HCPCS: 93458; 80053; 87635; C9600; C1769 ×2; C1887; C1894; C1725 ×2; C1874; J2250; J2001; J3010; J1644; Q9967 ×2

== ENCOUNTER → 2021-04-12 | Outpatient (CLI) | payer MEDICARE, OTHER ==
--- NOTE | 2021-04-16 10:08 | MM ---
Reason for exam: follow-up at short interval from prior study. Last mammogram was performed 6 months ago. History: Patient is postmenopausal and history of other cancer. Family history of breast cancer in paternal aunt. Benign US biopsy breast VAD RT of the right breast, October 09, 2020. Cyst aspiration of the right breast. Took hormonal contraceptives for 10 years beginning at age 15. Physical Findings: Nurse did not find any significant physical abnormalities on exam. MG 3D Diag Mammo W/Cad RT CC, MLO, and XCCL view(s) were taken of the right breast. Prior study comparison: October 09, 2020, right breast MG diagnostic mammo RT wo CAD. September 13, 2020, right breast MG 3d work up w/cad RT. The breast tissue is heterogeneously dense. This may lower the sensitivity of mammography. Previous mammotome biopsy in the right breast. Lateral asymmetric density is unchanged for 7 months. Continued follow up recommended. Benign vascular and oil cyst calcifications. These results were verbally communicated with the patient and result sheet given to the patient on 04/12/21. ASSESSMENT: Probably benign, BI-RAD 3 RECOMMENDATION: Follow-up diagnostic mammogram of both breasts in 5 months. Back on schedule for August 2021.
== END | disposition home or self-care (01) ==
LOC: RADMAMWWP 10:36
PROVIDERS: ATTEND Surgery
DX: N64.89 Other specified disorders of breast (principal); Z78.0 Asymptomatic menopausal state; Z80.3 Family history of malignant neoplasm of breast
CPT/HCPCS: 77065; G0279; 77061

== ENCOUNTER → 2021-05-03 | Outpatient (CLI) | payer MEDICARE, OTHER ==
[2021-05-03 15:14] VITALS: BP 109/72; PULSE 65; RESP 16; TEMP 97.9
--- NOTE | 2021-05-03 15:23 | P.PN ---
Subjective Progress Note Date: 05/03/21 Principal diagnosis: Fibrocystic breast changes Kamini is a 65-year-old white female who presents in consultation for Dr. Liao regarding an ultrasound abnormality in her right breast. She underwent a bilateral mammogram on which was felt to be incomplete and additional studies of the right breast were recommended. The additional studies were done on the diagnostic mammogram revealed a right breast nodule 5 mm in size at 10:00 4 cm from the nipple. An ultrasound was then recommended. The ultrasound on the same date revealed a benign duct with debris at the posterior nipple or solid material ultrasound-guided biopsy for ductal abnormality was recommended. No other specific lesions were identified in the right breast. The patient stated this was a routine mammogram and she had not felt any lumps masses or nodules in her breast. She was not complaining of any nipple discharge, she had developed a fungal infection under her breasts. She was not complaining of any recent trauma or infection in the breast. Had not had any surgery on her breast. She does have a history of right-sided mastitis when she was breast-feeding many years ago. She had an ultrasound core biopsy on 10-09-20 which was benign concordant. She had a recent 04-12-21 right breast mammogram which was probably benign BIRAD 3 and repeat in 5 months of both breast recommended. She does not feel any lumps, masses or nodules of concern in her breast. She has been having A-Fib and had a cath done and a stint placed this was placed in February 2021. Caffeine: 2 cups/day nicotine: none chocolate: none Family History: maternal grandmother: colon cancer paternal aunt: breast cancer maternal great grandmother: breast cancer at 94 Hormonal History: menarche: 17 M1, breast fed: yes, age at first : 22 menopause: 42 BCP: 3 years hormones: natural yam extract (progesterone); used hormones to initiate her menstrual cycle when she was 17 Surgical History: 1. uterine ablation 2. tubaligation 3. tonsil 4. wrist Medical History: 1. ulcerative colitis 2. broken bones on prednisone 3. night terrors 4. PTSD 5. Fibromyalgia 6. Heart attack Social History: nicotine: none alcohol: none drugs: Marijuana for 10 years, stopped 2 years ago - Constitutional Constitutional: Denies chills, Denies fever - EENT Comment: bilateral cataracts Eyes: denies blurred vision, denies pain Ears: bilateral: decreased hearing Ears, nose, mouth and throat: Denies headache, Denies sore throat - Breasts Breasts: bilateral: as per HPI - Cardiovascular Comment: heart attack 2019, two stints in place Cardiovascular: Denies chest pain, Denies shortness of breath - Respiratory Respiratory: Denies cough - Gastrointestinal Comment: ulcerative colitis Gastrointestinal: Denies abdominal pain, Denies diarrhea, Denies nausea, Denies vomiting - Genitourinary (Female) Genitourinary: Denies dysuria, Denies hematuria - Menstruation Menstruation: Reports postmenopausal - Musculoskeletal Comment: Osteoporosis, back pain, degenerative disc disease - Integumentary Comment: Psoriasis Integumentary: Denies pruritus, Denies rash - Neurological Neurological: Denies numbness, Denies weakness - Psychiatric Comment: Posttraumatic stress disorder Psychiatric: Reports anxiety, Reports depression - Endocrine Endocrine: Reports fatigue - Hematologic/Lymphatic Comment: on blood thinners; aspirin and Plavix Objective - Vital Signs Vital signs: Intake & Output 05/02/21 05/03/21 05/03/21 18:59 06:59 18:59 Weight 99.79 kg - Exam BMI 34.5 - Constitutional General appearance: Present: cooperative - EENT Eyes: Present: EOMI ENT: Present: hearing grossly normal - Neck Neck: Present: normal ROM - Respiratory Respiratory: bilateral: CTA - Cardiovascular Rhythm: regular Heart sounds: normal: S1, S2 - Gastrointestinal General gastrointestinal: Present: soft - Genitourinary Genitourinary Comment(s): Impression/Plan: Mammogram review of the right breast this appears to be stable however patient is recommended to have repeat bilateral mammogram in 5 months back on schedule Fungal cream for area of excoriation/fungal infection under the right breast Fibrocystic breast changes Patient to follow up in 5 months after bilateral mammogram follow up sooner if any questions or concerns Patient has cardiac issues at this time for which she is following with cardiology I have personally reviewed the mammogram of 04-12-21 CC: DR. Liao - Integumentary Integumentary: Present: normal turgor - Musculoskeletal Musculoskeletal: Present: gait normal - Psychiatric Psychiatric: Present: A&O x's 3, appropriate affect, intact judgment & insight - Additional findings Additional findings: Breast Exam: BRA: 38B Inspection: Bilateral grade 2 ptosis Palpation: Right breast: Multi-positional exam fibrocystic changes no dominant masses or nodules of concern Right axilla: No adenopathy of concern Left breast: Multiple positional exam fibrocystic changes no dominant masses or nodules of concern Left axilla: No adenopathy of concern There is fungal infection under the right breast with some excoriation
== END ==
LOC: WWCWWP 14:45
PROVIDERS: ATTEND Surgery
DX: N60.11 Diffuse cystic mastopathy of right breast (principal); N60.12 Diffuse cystic mastopathy of left breast; I48.91 Unspecified atrial fibrillation; I50.9 Heart failure, unspecified; F43.10 Post-traumatic stress disorder, unspecified; Z88.0 Allergy status to penicillin; Z88.2 Allergy status to sulfonamides; Z91.030 Bee allergy status

== ENCOUNTER → 2021-09-18 | Outpatient (CLI) | payer MEDICARE, OTHER ==
--- NOTE | 2021-09-18 09:25 | MM ---
Reason for Exam: Additional evaluation requested from prior study. Last screening mammogram was performed 12 month(s) ago. Patient History: Menarche at age 17. First Full-Term at age 21. Postmenopausal. Other cancer. Hormonal Contraceptives for 10 years from age 15 until age 49. Cyst Aspiration on the Right side. 10/09/2020, Benign Core Biopsy on the right side. Paternal aunt had breast cancer. Risk Values: Andreia 5 year model risk: 1.3%. NCI Lifetime model risk: 5.1%. Film Views: Bilateral CC views were taken. Bilateral MLO views were taken. Prior Study Comparison: 08/01/2016 Bilateral Screening Mammogram, [facility]. 05/22/2018 Bilateral Screening Mammogram, [facility]. 09/08/2020 Bilateral Screening Mammogram, [facility]. 04/12/2021 Right Diagnostic Mammogram, [facility]. Tissue Density: The breast tissue is heterogeneously dense. This may lower the sensitivity of mammography. Findings: Analyzed By CAD. Benign bilateral vascular and Musa's calcifications are redemonstrated. Microclip anterior right breast from biopsy. There is a small 4 mm area of asymmetric density central outer right cc view at a middle depth which is more defined but may have been subtly apparent on the 3-D images on the prior exams. Six-month follow-up recommended to reassess. Chronic nodularity superior left MLO view. No significant change otherwise seen from prior exams. Overall Assessment: Probably benign, BI-RAD 3 Management: Diagnostic Mammogram of the right breast in 6 months. 1. Six-month follow-up diagnostic right breast mammogram. 2. Patient should continue monthly self breast exams. 3. This exam should not preclude additional follow-up of suspicious palpable abnormalities. Electronically signed and approved by: Sherice Colindres M.D. Radiologist
== END | disposition home or self-care (01) ==
LOC: RADMAMWWP 08:55
PROVIDERS: ATTEND Surgery
DX: R92.8 Other abnormal and inconclusive findings on diagnostic imaging of breast (principal); Z78.0 Asymptomatic menopausal state; Z80.3 Family history of malignant neoplasm of breast
CPT/HCPCS: 77066; G0279; 77062

== ENCOUNTER → 2021-09-27 | Outpatient (CLI) | payer MEDICARE, OTHER ==
[2021-09-27 15:46] VITALS: BP 114/71; PULSE 64; RESP 18; TEMP 98.3
--- NOTE | 2021-09-27 16:23 | P.PN ---
Subjective Progress Note Date: 09/27/21 Principal diagnosis: fibrocystic breast changes Fibrocystic breast changes Kamini is a 65-year-old white female who presents in consultation for Dr. Liao regarding an ultrasound abnormality in her right breast. She underwent a bilateral mammogram on which was felt to be incomplete and additional studies of the right breast were recommended. The additional studies were done on the diagnostic mammogram revealed a right breast nodule 5 mm in size at 10:00 4 cm from the nipple. An ultrasound was then recommended. The ultrasound on the same date revealed a benign duct with debris at the posterior nipple or solid material ultrasound-guided biopsy for ductal abnormality was recommended. No other specific lesions were identified in the right breast. The patient stated this was a routine mammogram and she had not felt any lumps masses or nodules in her breast. She was not complaining of any nipple discharge, she had developed a fungal infection under her breasts. She was not complaining of any recent trauma or infection in the breast. Had not had any surgery on her breast. She does have a history of right-sided mastitis when she was breast-feeding many years ago. She had an ultrasound core biopsy on 10-09-20 which was benign concordant. She had a recent 04-12-21 right breast mammogram which was probably benign BIRAD 3 and repeat in 5 months of both breast recommended. She does not feel any lumps, masses or nodules of concern in her breast. She has been having A-Fib and had a cath done and a stint placed this was placed in February 2021. 09-27-21 Bilateral mammogram on 09-18-21, repeat right breast mammogram in 6 months. She is not complaining of any new lumps masses or nodules of concern in either breast. Caffeine: 2 cups/day nicotine: none chocolate: none Family History: maternal grandmother: colon cancer paternal aunt: breast cancer maternal great grandmother: breast cancer at 94 Hormonal History: menarche: 17 M1, breast fed: yes, age at first : 22 menopause: 42 BCP: 3 years hormones: natural yam extract (progesterone); used hormones to initiate her menstrual cycle when she was 17 Surgical History: 1. uterine ablation 2. tubaligation 3. tonsil 4. wrist Medical History: 1. ulcerative colitis 2. broken bones on prednisone 3. night terrors 4. PTSD 5. Fibromyalgia 6. Heart attack 7. A-fib on plavix and aspirin Social History: nicotine: none alcohol: none drugs: Marijuana for 10 years, stopped 3 years ago - Constitutional Constitutional: Denies chills, Denies fever - EENT Comment: bilateral cataracts Eyes: denies blurred vision, denies pain Ears: bilateral: decreased hearing Ears, nose, mouth and throat: Denies headache, Denies sore throat - Breasts Breasts: bilateral: as per HPI - Cardiovascular Comment: heart attack 2019, two stints in place Cardiovascular: Denies chest pain, Denies shortness of breath - Respiratory Respiratory: Denies cough - Gastrointestinal Comment: ulcerative colitis Gastrointestinal: Denies abdominal pain, Denies diarrhea, Denies nausea, Denies vomiting - Genitourinary (Female) Genitourinary: Denies dysuria, Denies hematuria - Menstruation Menstruation: Reports postmenopausal - Musculoskeletal Comment: Osteoporosis, back pain, degenerative disc disease - Integumentary Comment: Psoriasis Integumentary: Denies pruritus, Denies rash - Neurological Neurological: Denies numbness, Denies weakness - Psychiatric Comment: Posttraumatic stress disorder Psychiatric: Reports anxiety, Reports depression - Endocrine Endocrine: Reports fatigue, and weight gain - Hematologic/Lymphatic Comment: on blood thinners; aspirin and Plavix Objective - Vital Signs Vital signs: Vital Signs Temp 98.3 F 09/27/21 15:41 Pulse 64 09/27/21 15:41 Resp 18 09/27/21 15:41 BP 114/71 09/27/21 15:41 Pulse Ox 94 L 09/27/21 15:41 FiO2 Intake & Output 09/26/21 09/27/21 09/27/21 18:59 06:59 18:59 Weight 111.13 kg - Exam BMI: 38.4 - Constitutional General appearance: Present: cooperative - EENT Eyes: Present: EOMI ENT: Present: hearing grossly normal - Neck Neck: Present: normal ROM - Respiratory Respiratory: bilateral: CTA - Cardiovascular Heart sounds: normal: S1, S2 - Integumentary Integumentary: Present: normal turgor - Musculoskeletal Musculoskeletal: Present: gait normal - Psychiatric Psychiatric: Present: A&O x's 3, appropriate affect, intact judgment & insight - Additional findings Additional findings: Breast Exam: BRA: 38B Inspection: Bilateral grade 2/3 ptosis Palpation: Right breast: Small amount of fungal infection under the right breast, multiposition exam fibrocystic changes no dominant masses or nodules of concern Right axilla: No adenopathy of concern Left breast: Multi-positional exam no dominant masses or nodules of concern Left axilla: No adenopathy of concern Assessment and Plan Assessment: Impression: 1. ulcerative colitis 2. broken bones on prednisone 3. night terrors 4. PTSD 5. Fibromyalgia 6. Heart attack 7. A-fib on plavix and aspirin 8. Radiographic abnormality right breast 9. Fibrocystic breast changes 10: Fungal infection under right breast Plan: Nystatin under right breast as needed Repeat right breast mammogram in 6 months with physician exam at that time Bilateral mammogram in 1 year Patient to follow up sooner any questions or concerns Cc: Dr. Liao
== END ==
LOC: WWCWWP 15:21
PROVIDERS: ATTEND Surgery
DX: R92.8 Other abnormal and inconclusive findings on diagnostic imaging of breast (principal); N60.11 Diffuse cystic mastopathy of right breast; K51.90 Ulcerative colitis, unspecified, without complications; F51.4 Sleep terrors [night terrors]; M79.7 Fibromyalgia; I21.9 Acute myocardial infarction, unspecified; I25.2 Old myocardial infarction; I48.91 Unspecified atrial fibrillation; Z79.82 Long term (current) use of aspirin; F43.10 Post-traumatic stress disorder, unspecified; B36.8 Other specified superficial mycoses; F41.9 Anxiety disorder, unspecified; F32.A Depression, unspecified; Z88.0 Allergy status to penicillin; Z88.2 Allergy status to sulfonamides; Z91.030 Bee allergy status

== ENCOUNTER → 2022-04-26 | Outpatient (CLI) | payer MEDICARE, OTHER ==
--- NOTE | 2022-04-26 13:17 | MM ---
Reason for Exam: Follow-up at short interval from prior study. Last screening mammogram was performed 8 month(s) ago. Patient History: Menarche at age 17. First Full-Term at age 21. Postmenopausal. Other cancer. Hormonal Contraceptives for 10 years from age 15 until age 49. Cyst Aspiration on the Right side. 10/09/2020, Benign Core Biopsy on the right side. Paternal aunt had breast cancer, age 55. Risk Values: Andreia 5 year model risk: 1.3%. NCI Lifetime model risk: 5.1%. Prior Study Comparison: 10/09/2020 Right Diagnostic Mammogram, [facility]. 04/12/2021 Right Diagnostic Mammogram, [facility]. 09/18/2021 Bilateral MG 3D diag mammo w/cad [facility], [facility]. Tissue Density: Right: The breast tissue is heterogeneously dense. This may lower the sensitivity of mammography. Findings: Analyzed By CAD. Benign calcifications redemonstrated within the right breast. Stable chronic nodularity within the right breast. Previous mammotome biopsy in the right breast. No new suspicious mass or cluster of microcalcifications. Small area of asymmetric density in the central outer right breast previously seen is not visualized today. Overall Assessment: Benign, BI-RAD 2 Management: Screening Mammogram of both breasts in 6 months. A clinical breast exam by your physician is recommended on an annual basis and results should be correlated with mammographic findings. This exam should not preclude additional follow-up of suspicious palpable abnormalities. Results were given to the patient verbally at the time of exam. Electronically signed and approved by: Lazarus Suarez D.O.
== END | disposition home or self-care (01) ==
LOC: RADMAMWWP 12:51
PROVIDERS: ATTEND Surgery
DX: R92.8 Other abnormal and inconclusive findings on diagnostic imaging of breast (principal); Z78.0 Asymptomatic menopausal state; Z80.3 Family history of malignant neoplasm of breast; Z98.890 Other specified postprocedural states
CPT/HCPCS: 77065; G0279; 77061

== ENCOUNTER → 2022-05-03 | Outpatient (CLI) | payer MEDICARE, OTHER ==
[2022-05-03 13:02] VITALS: BP 118/75; PULSE 62; RESP 18; TEMP 98
--- NOTE | 2022-05-03 13:46 | P.PN ---
Subjective Progress Note Date: 05/03/22 09-27-21 Bilateral mammogram on 09-18-21, repeat right breast mammogram in 6 months. She is not complaining of any new lumps masses or nodules of concern in either breast. Repeat right breast mammogram on 1622 which was benign BIRADS 2. This was personally reviewed. She is not complaining of any new lumps masses or nodules of concern in either breast. Does not complain of any nipple discharge or skin changes. Caffeine: 2 cups/day nicotine: none chocolate: none Family History: maternal grandmother: colon cancer paternal aunt: breast cancer maternal great grandmother: breast cancer at 94 Hormonal History: menarche: 17 M1, breast fed: yes, age at first : 22 menopause: 42 BCP: 3 years hormones: natural yam extract (progesterone); used hormones to initiate her menstrual cycle when she was 17 Surgical History: 1. uterine ablation 2. tubaligation 3. tonsil 4. wrist Medical History: 1. ulcerative colitis 2. broken bones on prednisone 3. night terrors 4. PTSD 5. Fibromyalgia 6. Heart attack 7. A-fib on plavix and aspirin Social History: nicotine: none alcohol: none drugs: Marijuana for 10 years, stopped 3 years ago - Constitutional Constitutional: Denies chills, Denies fever - EENT Comment: bilateral cataracts Eyes: denies blurred vision, denies pain Ears: bilateral: decreased hearing Ears, nose, mouth and throat: Denies headache, Denies sore throat - Breasts Breasts: bilateral: as per HPI - Cardiovascular Comment: heart attack 2019, two stints in place Cardiovascular: Denies chest pain, Denies shortness of breath - Respiratory Respiratory: Denies cough - Gastrointestinal Comment: ulcerative colitis Gastrointestinal: Denies abdominal pain, Denies diarrhea, Denies nausea, Denies vomiting - Genitourinary (Female) Genitourinary: Denies dysuria, Denies hematuria - Menstruation Menstruation: Reports postmenopausal - Musculoskeletal Comment: Osteoporosis, back pain, degenerative disc disease - Integumentary Comment: Psoriasis Integumentary: Denies pruritus, Denies rash - Neurological Neurological: Denies numbness, Denies weakness - Psychiatric Comment: Posttraumatic stress disorder Psychiatric: Reports anxiety, Reports depression - Endocrine Endocrine: Reports fatigue, and weight gain - Hematologic/Lymphatic Comment: on blood thinners; aspirin and Plavix Objective - Vital Signs Vital signs: Vital Signs Temp 98.0 F 05/03/22 12:59 Pulse 62 05/03/22 12:59 Resp 18 05/03/22 12:59 BP 118/75 05/03/22 12:59 Pulse Ox 96 05/03/22 12:59 FiO2 Intake & Output 05/02/22 05/03/22 05/03/22 18:59 06:59 18:59 Weight 106.594 kg - Constitutional General appearance: Present: cooperative - EENT Eyes: Present: EOMI ENT: Present: hearing grossly normal - Neck Neck: Present: normal ROM - Respiratory Respiratory: bilateral: CTA - Cardiovascular Rhythm: regular - Integumentary Integumentary: Present: normal turgor - Musculoskeletal Musculoskeletal: Present: gait normal - Psychiatric Psychiatric: Present: A&O x's 3, appropriate affect, intact judgment & insight - Additional findings Additional findings: Breast Exam: BRA: 38B Inspection: Bilateral grade 2/3 ptosis Palpation: Right breast: Small amount of fungal infection under the right breast, multiposition exam fibrocystic changes no dominant masses or nodules of concern Right axilla: No adenopathy of concern Left breast: Multi-positional exam no dominant masses or nodules of concern Left axilla: No adenopathy of concern Assessment and Plan Assessment: Assessment and Plan Assessment: Impression: 1. ulcerative colitis 2. broken bones on prednisone 3. night terrors 4. PTSD 5. Fibromyalgia 6. Heart attack 7. A-fib on plavix and aspirin 8. Radiographic abnormality right breast 9. Fibrocystic breast changes 10: Fungal infection under right breast resolved 11. right breast mammogram done 04-26-22 Plan: Repeat bilateral mammogram in 6 months follow-up at that time; Patient to follow up sooner any questions or concerns Cc: Dr. Liao Additional CC's: Stephen Liao
== END ==
LOC: WWCWWP 12:41
PROVIDERS: ATTEND Surgery
DX: N60.11 Diffuse cystic mastopathy of right breast (principal); K51.90 Ulcerative colitis, unspecified, without complications; F43.10 Post-traumatic stress disorder, unspecified; M79.7 Fibromyalgia; F51.4 Sleep terrors [night terrors]; Z79.82 Long term (current) use of aspirin; I48.91 Unspecified atrial fibrillation; Z79.02 Long term (current) use of antithrombotics/antiplatelets; I21.9 Acute myocardial infarction, unspecified; B36.8 Other specified superficial mycoses; M84.40XA Pathological fracture, unspecified site, initial encounter for fracture; Z88.0 Allergy status to penicillin; Z88.2 Allergy status to sulfonamides; Z91.030 Bee allergy status

== ENCOUNTER → 2022-07-12 | Outpatient (CLI) | payer MEDICARE, OTHER ==
[2022-07-12 17:09] LABS: Partial Thromboplastin Time 21.8 sec (22.0-30.0); Prothrombin Time 10.5 sec (9.0-12.0)
[2022-07-12 22:20] LABS: Basophils # (A) 0.09 X 10*3/uL (0.00-0.10); Basophils % (A) 1.1 %; Eosinophils # (A) 0.28 X 10*3/uL (0.04-0.35); Eosinophils % (A) 3.4 %; HCT 43.7 % (37.2-46.3); HGB 13.7 g/dL (12.0-15.0); Immature Grans, Automated 0.4 %; Lymphocytes # (A) 2.02 X 10*3/uL (0.90-5.00); Lymphocytes % (A) 24.8 %; MCH 30.6 pg (27.0-32.0); MCHC 31.4 g/dL (32.0-37.0); MCV 97.5 fL (80.0-97.0); Mean Platelet Volume 9.5 fL (9.5-12.2); Monocytes # (A) 0.69 X 10*3/uL (0.20-1.00); Monocytes % (A) 8.5 %; NRBC Per 100 WBC 0 /100 WBCS (0.0-0.0); Neutrophils # (A) 5.04 X 10*3/uL (1.80-7.70); Neutrophils % (A) 61.8 %; Platelet Count 274 X 10*3/uL (140-440); RBC 4.48 X 10*6/uL (4.10-5.20); RDW 12.8 % (11.5-14.5); WBC 8.15 X 10*3/uL (4.50-10.00)
[2022-07-12 22:23] LABS: African American GFR (CKD) 90.3 (60.0-200.0); Albumin 4.4 g/dL (3.8-4.9); Albumin/Globulin Ratio 1.76 (1.60-3.17); Anion Gap 8.4 mmol/L (10.00-18.00); BUN/Creat Ratio 12.75 Ratio (12.00-20.00); Blood Urea Nitrogen 10.2 mg/dL (9.0-27.0); Calcium 9.4 mg/dL (8.7-10.3); Carbon Dioxide 25.6 mmol/L (20.0-27.5); Globulin 2.5 g/dL (1.6-3.3); Non-African American GFR(CKD) 77.9 (60.0-200.0); Potassium 4.3 mmol/L (3.5-5.5); Total Bilirubin 0.5 mg/dL (0.30-1.20); Total Protein 6.9 g/dL (6.2-8.2)
[2022-07-13 00:01] LABS: Appearance,Urine Clear (Clear); Bilirubin,Urine Negative (Negative); Blood,Urine Negative (Negative); Color,Urine Yellow (Yellow); Ketones,Urine Trace mg/dL (Negative); Nitrite,Urine Negative (Negative); Specific Gravity,Urine 1.024 (1.001-1.030); Urobilinogen,Urine 0.2 (0.2,1.0)
[2022-07-13 00:09] LABS: Bacteria,Urine Trace /HPF (None Seen)
== END | disposition home or self-care (01) ==
LOC: LABPAT 15:57
PROVIDERS: ATTEND Orthopaedic Surgery
DX: Z01.812 Encounter for preprocedural laboratory examination (principal); M16.11 Unilateral primary osteoarthritis, right hip
CPT/HCPCS: 80053; 81001; 85025; 85610; 85730; 87070

== ENCOUNTER 2022-10-27 17:55 | Inpatient (IN) | payer MEDICARE, BC, OTHER ==
[2022-10-27 18:45] LABS: Basophils # (A) 0.1 k/uL (0-0.2); Basophils % (A) 1 %; Eosinophils # (A) 0.5 k/uL (0-0.7); Eosinophils % (A) 7 %; HCT 45.3 % (34.0-46.0); HGB 14.3 gm/dL (11.4-16.0); Lymphocytes # (A) 1.6 k/uL (1.0-4.8); Lymphocytes % (A) 24 %; MCH 30.6 pg (25.0-35.0); MCHC 31.7 g/dL (31.0-37.0); MCV 96.7 fL (80.0-100.0); Mean Platelet Volume 7.2; Monocytes # (A) 0.4 k/uL (0-1.0); Monocytes % (A) 6 %; Neutrophils # (A) 4.1 k/uL (1.3-7.7); Neutrophils % (A) 61 %; Platelet Count 220 k/uL (150-450); RBC 4.69 m/uL (3.80-5.40); RDW 13.3 % (11.5-15.5); WBC 6.7 k/uL (3.8-10.6)
[2022-10-27 18:56] LABS: ALT 27 U/L (4-34); AST 40 U/L (14-36); African American GFR (CKD) >90 (>60 ml/min/1.73 sqM); Albumin 4.4 g/dL (3.5-5.0); Alkaline Phosphatase 49 U/L (38-126); Anion Gap 12 mmol/L; Blood Urea Nitrogen 15 mg/dL (7-17); Calcium 9.5 mg/dL (8.4-10.2); Carbon Dioxide 24 mmol/L (22-30); Chloride 105 mmol/L (98-107); Glucose 95 mg/dL (74-99); Non-African American GFR(CKD) 86 (>60 ml/min/1.73 sqM); Sodium 141 mmol/L (137-145); Total Bilirubin 0.9 mg/dL (0.2-1.3); Total Protein 7.5 g/dL (6.3-8.2)
[2022-10-27] MEDS ORDERED: NITROGLYCERIN OINT 1 INCH/GM PACKET TOPICAL STA (19:01)
[2022-10-27] MEDS ORDERED: ASPIRIN 81 MG PO STA (19:01)
[2022-10-27 19:02] LABS: Partial Thromboplastin Time 22.1 sec (22.0-30.0); Prothrombin Time 10.3 sec (9.0-12.0)
[2022-10-27] MEDS ORDERED: HEPARIN SODIUM 1,000 UN/ML (10ML VL) IV ONE (19:06)
[2022-10-27] MEDS ORDERED: HEPARIN SODIUM 1,000 UN/ML (10ML VL) IV PRN (19:06)
--- NOTE | 2022-10-27 19:06 | ED ---
Chest Pain HPI - General Chief Complaint: Chest Pain Stated Complaint: chest pain Time Seen by Provider: 10/27/22 18:03 Source: patient Mode of arrival: ambulatory Limitations: no limitations - History of Present Illness Initial Comments: This patient is a 67-year-old woman with history of previous IN requiring stenting. She states that she was at rest this evening when she developed substernal chest pain that radiated towards the back and towards her jaw. She states that she told her son and she took an antacid which did not change the symptoms too much. She then took a nitroglycerin which did relieve the symptoms. She arrives here and states she is symptom-free. She states that the pain was very similar to previous IN. There were no accompanying anginal symptoms. MD Complaint: chest pain Onset/Timin -: hour(s) Onset: during rest Pain Location: substernal Pain Radiation: jaw/teeth Severity: moderate Quality: aching Consistency: now resolved Improves With: nitroglycerin Worsens With: nothing Treatments Prior to Arrival: nitroglycerin - Related Data Home Medications Medication Instructions Recorded Confirmed LORazepam [Lorazepam] 1 mg PO DAILY 07/01/14 10/27/22 PARoxetine HCL 60 mg PO HS 07/01/14 10/27/22 Mesalamine [Lialda] 3.6 gm PO HS 10/20/19 10/27/22 ARIPiprazole [Abilify] 2 mg PO HS 05/03/22 10/27/22 ARIPiprazole [Abilify] 5 mg PO DAILY 10/27/22 10/27/22 Clopidogrel [Plavix] 75 mg PO DAILY 10/27/22 10/27/22 EPINEPHrine (Auto Inject) [Epipen] 0.3 mg IM ONCE PRN 10/27/22 10/27/22 Empagliflozin [Jardiance] 25 mg PO DAILY 10/27/22 10/27/22 Ezetimibe [Zetia] 10 mg PO HS 10/27/22 10/27/22 HYDROcodone/APAP 5-325MG [[place] 1.5 tab PO BID 10/27/22 10/27/22 5-325] LORazepam [Ativan] 2 mg PO HS 10/27/22 10/27/22 Levothyroxine Sodium [Synthroid] 88 mcg PO DAILY 10/27/22 10/27/22 Metoprolol Succinate (ER) [Toprol 25 mg PO HS 10/27/22 10/27/22 Xl] Metoprolol Succinate (ER) [Toprol 50 mg PO DAILY 10/27/22 10/27/22 Xl] Nitroglycerin Sl Tabs [Nitrostat] 0.4 mg SL Q5M PRN 10/27/22 10/27/22 metFORMIN HCL ER [Glucophage XR] 1,000 mg PO W/SUPPER 10/27/22 10/27/22 tiZANidine [Zanaflex] 2 mg PO TID PRN 10/27/22 10/27/22 Previous Rx's Medication Instructions Recorded Aspirin 81 mg PO DAILY chew 10/21/19 Allergies Allergy/AdvReac Type Severity Reaction Status Date / Time Penicillins Allergy Rash/Hives Verified 10/27/22 18:00 Sulfa (Sulfonamide Allergy Rash/Hives Verified 10/27/22 18:00 Antibiotics) venom-honey bee Allergy Anaphylaxis Verified 10/27/22 18:00 [bee venom (honey bee)] Review of Systems ROS Statement: Those systems with pertinent positive or pertinent negative responses have been documented in the HPI. ROS Other: All systems not noted in ROS Statement are negative. Constitutional: Denies: fever, chills Respiratory: Denies: cough, dyspnea Cardiovascular: Reports: chest pain. Denies: palpitations, orthopnea, edema, syncope Gastrointestinal: Denies: abdominal pain, nausea, vomiting, diarrhea Genitourinary: Denies: dysuria, hematuria Musculoskeletal: Denies: back pain Skin: Denies: rash Neurological: Denies: headache, weakness EKG Findings - EKG Results: EKG: interpreted by ERMPhyllis, sinus rhythm EKG shows: bradycardia (Rate 55 bpm) - Blocks, [place], Hypertrophy, ST Abn: Repolarization changes or abnormalities: ST or T wave suggestive of ischemia Past Medical History Past Medical History: Fibromyalgia, Hyperlipidemia, Hypertension, Myocardial Infarction ([place]), Osteoarthritis (OA), Renal Disease, Thyroid Disorder Additional Past Medical History / Comment(s): ULCERATIVE COLITIS,. HX of RHEUMATIC FEVER DID NOT CAUSE CARDIAC DAMAGE, DEGENERATIVE DISC DISEASE, BENIGN CYST ON KIDNEY, stage 3 CKD, fatty liver, currently on A/B for a cough, had neg. covid on 03-05-21, son who lives downstairs tested positive for covid on 02-28-21 but she denies close contact w/him, recent admission for chest pain Last Myocardial Infarction Date:: 10/19/19 History of Any Multi-Drug Resistant Organisms: None Reported Past Surgical History: Adenoidectomy, Breast Surgery, Heart Catheterization With Stent, Orthopedic Surgery, Tonsillectomy, Tubal Ligation, Uterine Ablation Additional Past Surgical History / Comment(s): COLONOSCOPY, EGD. RIGHT HAND TENDONITIS SURGERY, BENIGN RIGHT BREAST BIOPSY ROUGHLY 40 YRS AGO Past Anesthesia/Blood Transfusion Reactions: No Reported Reaction Date of Last Stent Placement:: 02/21/21 Past Psychological History: Anxiety, PTSD Smoking Status: Never smoker Past Alcohol Use History: None Reported Past Drug Use History: Marijuana - Past Family History Mother Family Medical History: Dementia General Exam Limitations: no limitations General appearance: alert, in no apparent distress, other (Mild tremor) Head exam: Present: atraumatic, normocephalic Eye exam: Present: normal appearance. Absent: scleral icterus, conjunctival injection ENT exam: Present: normal oropharynx Neck exam: Present: normal inspection Respiratory exam: Present: normal lung sounds bilaterally. Absent: respiratory distress, wheezes, rales, rhonchi, stridor, accessory muscle use Cardiovascular Exam: Present: regular rate, normal rhythm, normal heart sounds. Absent: systolic murmur, diastolic murmur GI/Abdominal exam: Present: soft. Absent: distended, tenderness, guarding, rebound, rigid, mass Extremities exam: Present: normal inspection, normal capillary refill. Absent: pedal edema, calf tenderness Back exam: Present: normal inspection. Absent: CVA tenderness (R), CVA tenderness (L) Neurological exam: Present: alert Skin exam: Present: warm, dry, intact, normal color. Absent: rash Course Vital Signs 10/27/22 10/27/22 17:56 19:46 Temperature 98.5 F Pulse Rate 60 51 L Respiratory 18 20 Rate Blood Pressure 124/69 117/64 O2 Sat by Pulse 96 96 Oximetry Chest Pain MDM - MDM Patient is 67-year-old woman with history of previous coronary artery disease presenting with symptoms strongly resembling her previous episodes. The patient does appear to have new T inversions versus comparison ECG. The case is discussed with cardiology. The patient is treated with aspirin, nitrates, hepa rin. She has remained symptom-free throughout her time in the emergency department. Case also discussed with admitting physician. Critical Care Time Critical Care Time: Yes (35 minutes) Disposition Clinical Impression: Chest pain Disposition: ADMITTED IP TO THIS HOSP Condition: Fair Is patient prescribed a controlled substance at d/c from ED?: No
[2022-10-27] MEDS ORDERED: HEPARIN SOD,PORK IN 0.45% NACL 25,000 UNIT in 0.45% NACL 1 250ML.BAG IV SCH (19:15)
[2022-10-27] MEDS ORDERED: NITROGLYCERIN SL TABS 0.4 MG TAB SUBLINGUAL PRN (19:16)
[2022-10-27] MEDS ORDERED: LORazepam 1 MG TAB PO PRN (19:18)
[2022-10-27] MEDS: SODIUM CHLORIDE 0.9% 1,000 ML IV SCH (19:30)
[2022-10-27] MEDS: BALSALAZIDE DISODIUM 750 MG CAPSULE PO SCH (20:55)
[2022-10-27] MEDS: METOPROLOL SUCCINATE (ER) 25 MG TAB.ER.24H PO SCH (20:55)
[2022-10-27] MEDS: LORazepam 1 MG TAB PO SCH (20:55)
[2022-10-27] MEDS: ARIPiprazole 2 MG TAB PO SCH (20:55)
[2022-10-27] MEDS ORDERED: METOPROLOL SUCCINATE (ER) 25 MG TAB.ER.24H PO SCH (21:00)
[2022-10-27] MEDS ORDERED: ATORVASTATIN 80 MG TAB PO SCH (21:00)
[2022-10-28] MEDS: SODIUM CHLORIDE 0.9% 1,000 ML IV SCH ×2 (05:22→15:29)
[2022-10-28] MEDS: LEVOTHYROXINE 88 MCG TAB PO SCH (05:45)
[2022-10-28] MEDS ORDERED: LEVOTHYROXINE 100 MCG TAB PO SCH (06:30)
[2022-10-28] MEDS ORDERED: ASPIRIN 325 MG TAB PO SCH (09:00)
[2022-10-28] MEDS: BALSALAZIDE DISODIUM 750 MG CAPSULE PO SCH ×3 (09:20→21:02)
[2022-10-28] MEDS: ARIPiprazole 5 MG TAB PO SCH (09:21)
[2022-10-28] MEDS: PARoxetine 20 MG TAB PO SCH (09:21)
[2022-10-28] MEDS: METOPROLOL SUCCINATE (ER) 50 MG TAB.ER.24H PO SCH (09:21)
[2022-10-28] MEDS ORDERED: DEXTROSE 50% SYRINGE 50 ML IVP PRN ×2 (09:30)
[2022-10-28] MEDS ORDERED: ACETAMINOPHEN TAB 325 MG TAB PO PRN (09:36)
[2022-10-28] MEDS ORDERED: VERAPAMIL 2.5 MG/ML 2 ML AMP ONE (10:04)
[2022-10-28] MEDS ORDERED: HEPARIN SODIUM 1,000 UN/ML (10ML VL) ONE (10:04)
[2022-10-28] MEDS ORDERED: fentaNYL (PF) 50 MCG/ML 2 ML AMP ONE (10:04)
--- NOTE | 2022-10-28 10:06 | CONS ---
CONSULTATION CHIEF COMPLAINT: Chest pain. HISTORY OF PRESENT ILLNESS: Kamini is a 67-year-old lady with history of known coronary artery disease, status post prior angioplasty, who comes to hospital complaining of chest pain. She states that she feels it as a burning with chest discomfort, moderate intensity at rest that radiated to her left arm, very similar to the pain that she has had in the past. She has known prior stenting of the diagonal branch in October 2019 and had a cardiac catheterization and angioplasty of the ostium of the diagonal branch in February 2021 with mild in-stent restenoses in the LAD and mild disease in the right coronary artery. An EKG on her shows sinus bradycardia with moderate ST-T wave changes suggestive of ischemia. Three sets of troponins are negative. Creatinine is normal at 0.7, potassium is 4, hemoglobin is 14.3. Given her symptomatology and known coronary artery disease, I advised her to undergo cardiac catheterization for further evaluation. She has been explained of risks, benefits and alternatives, understood and accepted. PAST MEDICAL HISTORY: Significant for coronary artery disease, status post angioplasty, hypertension, diabetes, dyslipidemia. MEDICATIONS: At home included, 1. Toprol. 2. Glucophage. 3. Ativan. 4. Zetia. 5. Abilify. 6. EpiPen. 7. Synthroid. 8. Plavix. 9. Toprol. 10.Lorazepam. 11.Jardiance. 12.[place]. ALLERGIES: To penicillin and sulfa. FAMILY HISTORY: Negative for premature coronary artery disease. SOCIAL HISTORY: Negative for current smoking, EtOH abuse, or drug abuse. REVIEW OF SYSTEMS: 14 out of 14 review of systems has been performed. Pertinents are as documented. PHYSICAL EXAMINATION: GENERAL: Comfortable at rest. VITAL SIGNS: Stable. NECK: There is no jugular venous distention. Carotid upstroke is normal. There is no bruit. CHEST: Reveals good air entry bilaterally. HEART: Reveals first and second heart sounds. No gallop. No murmur. No rub. ABDOMEN: Soft, nontender. EXTREMITIES: Did not reveal any edema. Peripheral pulses are felt. LABORATORY DATA: Labs show that the tropes are negative. Creatinine is normal. Hemoglobin is normal. EKG is abnormal as described above. ASSESSMENT: Unstable angina in a patient with known coronary artery disease, status post prior intervention. PLAN: I advised the patient to undergo cardiac catheterization and decide on further course of action. MMODL / IJN: [id number] /
[2022-10-28] MEDS ORDERED: SODIUM CHLORIDE 0.9% 1,000 ML IV ONE (10:40)
[2022-10-28] MEDS: MIDAZOLAM 2 MG/2 ML VIAL IVP ONE ×2 (10:43→11:11)
[2022-10-28] MEDS: fentaNYL (PF) 50 MCG/ML 2 ML AMP IVP ONE ×2 (10:43→11:03)
[2022-10-28] MEDS ORDERED: LIDOCAINE 1% INJ 10MG/ML (5 ML VIAL-PF) SQ ONE (10:45)
[2022-10-28] MEDS ORDERED: LIDOCAINE 1% INJ 10MG/ML (20 ML MDV) ONE (10:52)
[2022-10-28 11:17] LABS: Chol/HDL Ratio 5.26 Ratio; LDL Cholesterol,Calculated 140.7 mg/dL (0.0-131.0)
[2022-10-28] MEDS ORDERED: LIDOCAINE 1% INJ 10MG/ML (30 ML VIAL-PF) SQ ONE (11:17)
[2022-10-28] MEDS ORDERED: VERAPAMIL SYRINGE (5 MG/10 ML) INTRAARTER ONE (11:20)
[2022-10-28] MEDS ORDERED: HEPARIN SODIUM 1,000 UN/ML (10ML VL) IVP ONE (11:24)
[2022-10-28] MEDS ORDERED: IOPAMIDOL-370 100ML BTL INJ ONE (11:44)
[2022-10-28] MEDS ORDERED: RX INFO: IV CONTRAST WAS GIVEN 1 EACH MISC MISCELLANE PRN (11:52)
[2022-10-28] MEDS ORDERED: SODIUM CHLORIDE 0.9% 1,000 ML IV SCH (12:00)
--- NOTE | 2022-10-28 12:01 | P.CARDCATH ---
Date of Procedure: 10/28/22 Description of Procedure: Cardiac Catheterization: The patient is a 67-year-old female with a known history of CAD, post stenting in 2019 and 2020 who presented with chest discomfort, mild EKG changes but normal enzymes. She was evaluated by Dr. Cristina . He attempted to cannulate the right radial artery that was unsuccessful. Recommendations were made regarding cardiac catheterization, the risks and the complications were discussed with the patient who is in full understanding and agreement. Procedure Description: Patient was brought to quality assurance lab technician in fasting semi-sedated state after receiving Fentanyl and Benadryl achieiving moderate conscious sedated state. Using Xylocaine Anesthesia and Seldinger technique, a 6-American sheath was introduced in the left radial artery . Subsequently, selective coronary angiography was performed using a 5-American 4 bend Yasmin catheter. Multiple views of the coronary artery including hemiaxial views were obtained. The 5-American pigtail catheter was used to cross the aortic valve and LVEDP was calculated. After removing the catheters a 6-American EBU 3.75 guiding catheter was introduced in the and the left main was cannulated, subsequently an Omni Doppler flow wire was positioned in the distal left circumflex and IFR was measured following that the wire was introduced in the distal LAD and repeat measurement was performed. Following that, catheter and sheath were removed. Hemostasis was obtained with deployment of TR band . There was no immediate complication. Patient was returned to room in stable condition. Of note, the patient received a total of 5000 units of intravenous heparin as well as intra-arterial verapamil. Findings: Left main: This is a large size vessel that trifurcated into LAD, left circumflex and ramus intermedius, the left main has no obstructive disease LAD: This is a large size vessel, reaching to the apex, giving rise to a large diagonal branch. The stented diagonal branch has no significant in-stent restenosis. There is a 40-50% stenosis in the distal segment of the LAD stent Left circumflex: This is a nondominant vessel, giving rise to one obtuse marginal branch of moderate caliber. The proximal left circumflex has an eccentric 50% plaque, the rest of the vessel has no high-grade stenosis RCA: This is a large dominant vessel bifurcating into PDA and PLV, the RCA has 20-30% plaque in the midsegment Ramus intermedius: This vessel has no evidence of high-grade stenosis Left Ventriculogram: Not performed Hemodynamics: There was no gradient across the aortic valve, LVEDP was 10-12 mmHg Conclusion: 1. Patent stent in the LAD and the diagonal branch 2. And moderate disease in the mid LAD with normal IFR, 0.92 3. Moderate disease in the proximal left circumflex with normal IFR, 1.02 4. Right dominance Recommendations: In view of the findings I have recommended to continue medical therapy, I would add nitrate for possible vasospastic disease. The findings and the recommendations were discussed with the patient and the family and they were in full understanding and agreement. Duration of sedation is 40 minutes.
[2022-10-28 12:25] LABS: Glucose,Whole Blood 93 mg/dL (70-110)
[2022-10-28] MEDS: INSULIN ASPART (NovoLOG) 100 UNIT/ML VIAL SQ SCH ×3 (12:40→21:50)
[2022-10-28] MEDS: ISOSORBIDE MONONITRATE ER 30 MG TAB.ER.24H PO SCH (12:50)
--- NOTE | 2022-10-28 14:07 | P.HPIM ---
History of Present Illness H&P Date: 10/28/22 History of present illness; patient is 67-year-old lady with past medical history history significant for coronary artery disease who presented to the ER because of chest pain. Patient stated that she was all right yesterday evening when she started developing central chest pain that was pressure like in nature and was relating down her back and her jaw. There was no aggravating or relieving factors associated with this chest pain. There was no associated shortness of breath. Denied any complaint of palpitation. There was no complain of swelling of feet. Patient denies any complaint of fever or chills. Patient did took some nitroglycerin that relieved her chest pain. Because of this chest pain being similar to her previous episodes of heart attack, patient was brought to the ER. Initial lab work in the ER showed WBC 6.7, hemoglobin 14.3, platelet count 220, sodium 141, potassium 4, BUN 15, creatinine 0.74 troponin was 0.012, EKG done did not show any acute segment changes, no T-wave inversion, ventricular rate of 55 bpm Patient was admitted to medicine service REVIEW OF SYSTEMS: CONSTITUTIONAL: No fever, no malaise, no fatigue. HEENT: No recent visual problems or hearing problems. Denied any sore throat. CARDIOVASCULAR: As mentioned in HPI PULMONARY: No shortness of breath, no cough, no hemoptysis. GASTROINTESTINAL: No diarrhea, no nausea, no vomiting, no abdominal pain. NEUROLOGICAL: No headaches, no weakness, no numbness. HEMATOLOGICAL: Denies any bleeding or petechiae. GENITOURINARY: Denies any burning micturition, frequency, or urgency. MUSCULOSKELETAL/RHEUMATOLOGICAL: Denies any joint pain, swelling, or any muscle pain. ENDOCRINE: Denies any polyuria or polydipsia. The rest of the 14-point review of systems is negative. PHYSICAL EXAMINATION: GENERAL: The patient is alert and oriented x3, not in any acute distress. Well developed, well nourished. HEENT: Pupils are round and equally reacting to light. EOMI. No scleral icterus. No conjunctival pallor. Normocephalic, atraumatic. No pharyngeal erythema. No thyromegaly. CARDIOVASCULAR: S1 and S2 present. No murmurs, rubs, or gallops. PULMONARY: Chest is clear to auscultation, no wheezing or crackles. ABDOMEN: Soft, nontender, nondistended, normoactive bowel sounds. No palpable organomegaly. MUSCULOSKELETAL: No joint swelling or deformity. EXTREMITIES: No cyanosis, clubbing, or pedal edema. NEUROLOGICAL: Gross neurological examination did not reveal any focal deficits. SKIN: No rashes. Assessment and plan Chest pain Hypothyroidism Hypertension Hyperlipidemia [id number] diabetes mellitus Depression History of coronary artery disease Monitor vital signs Monitor CBC Monitor CBC Trend troponin Resume home meds continue sliding scale insulin Consult cardiology DVT prophylaxis: Past Medical History Past Medical History: Fibromyalgia, Hyperlipidemia, Hypertension, Myocardial Infarction ([place]), Osteoarthritis (OA), Renal Disease, Thyroid Disorder Additional Past Medical History / Comment(s): ULCERATIVE COLITIS,. HX of RHEUMATIC FEVER DID NOT CAUSE CARDIAC DAMAGE, DEGENERATIVE DISC DISEASE, BENIGN CYST ON KIDNEY, stage 3 CKD, fatty liver, currently on A/B for a cough, had neg. covid on 03-05-21, son who lives downstairs tested positive for covid on 1 but she denies close contact w/him, recent admission for chest pain Last Myocardial Infarction Date:: 10/19/19 History of Any Multi-Drug Resistant Organisms: None Reported Past Surgical History: Adenoidectomy, Breast Surgery, Heart Catheterization With Stent, Orthopedic Surgery, Tonsillectomy, Tubal Ligation, Uterine Ablation Additional Past Surgical History / Comment(s): COLONOSCOPY, EGD. RIGHT HAND TENDONITIS SURGERY, BENIGN RIGHT BREAST BIOPSY ROUGHLY 40 YRS AGO Past Anesthesia/Blood Transfusion Reactions: No Reported Reaction Date of Last Stent Placement:: 02/21/21 Past Psychological History: Anxiety, PTSD Smoking Status: Never smoker Past Alcohol Use History: None Reported Past Drug Use History: Marijuana - Past Family History Mother Family Medical History: Dementia Medications and Allergies Home Medications Medication Instructions Recorded Confirmed Type LORazepam [Lorazepam] 1 mg PO DAILY 07/01/14 10/27/22 History PARoxetine HCL 60 mg PO HS 07/01/14 10/27/22 History Mesalamine [Lialda] 3.6 gm PO HS 10/20/19 10/27/22 History Aspirin 81 mg PO DAILY chew 10/21/19 10/27/22 Rx ARIPiprazole [Abilify] 2 mg PO HS 05/03/22 10/27/22 History ARIPiprazole [Abilify] 5 mg PO DAILY 10/27/22 10/27/22 History Clopidogrel [Plavix] 75 mg PO DAILY 10/27/22 10/27/22 History EPINEPHrine (Auto Inject) [Epipen] 0.3 mg IM ONCE PRN 10/27/22 10/27/22 History Empagliflozin [Jardiance] 25 mg PO DAILY 10/27/22 10/27/22 History Ezetimibe [Zetia] 10 mg PO HS 10/27/22 10/27/22 History HYDROcodone/APAP 5-325MG [[place] 1.5 tab PO BID 10/27/22 10/27/22 History 5-325] LORazepam [Ativan] 2 mg PO HS 10/27/22 10/27/22 History Levothyroxine Sodium [Synthroid] 88 mcg PO DAILY 10/27/22 10/27/22 History Metoprolol Succinate (ER) [Toprol 25 mg PO HS 10/27/22 10/27/22 History Xl] Metoprolol Succinate (ER) [Toprol 50 mg PO DAILY 10/27/22 10/27/22 History Xl] Nitroglycerin Sl Tabs [Nitrostat] 0.4 mg SL Q5M PRN 10/27/22 10/27/22 History metFORMIN HCL ER [Glucophage XR] 1,000 mg PO W/SUPPER 10/27/22 10/27/22 History tiZANidine [Zanaflex] 2 mg PO TID PRN 10/27/22 10/27/22 History Allergies Allergy/AdvReac Type Severity Reaction Status Date / Time Penicillins Allergy Rash/Hives Verified 10/27/22 18:00 Sulfa (Sulfonamide Allergy Rash/Hives Verified 10/27/22 18:00 Antibiotics) venom-honey bee Allergy Anaphylaxis Verified 10/27/22 18:00 [bee venom (honey bee)] Physical Exam Vitals: Vital Signs Temp Pulse Pulse Resp BP BP BP 10/28/22 06:45 97.7 F 62 16 112/69 10/28/22 00:56 97.4 F L 52 L 16 92/53 10/27/22 20:53 97.5 F L 52 L 16 124/69 10/27/22 19:46 51 L 20 117/64 10/27/22 17:56 98.5 F 60 18 124/69 Pulse Ox 10/28/22 06:45 96 07/10/23 00:56 93 L 10/27/22 20:53 94 L 10/27/22 19:46 96 10/27/22 17:56 96 Intake and Output 10/27/22 10/28/22 10/28/22 22:59 06:59 14:59 Intake Total 62.333 Balance 62.333 Intake: Intake, IV Titration 62.333 Amount Heparin Sod,Pork in 0.45% 62.333 NaCl 25,000 unit In 0.45 % NaCl 1 250ml.bag @ 10. 021 UNITS/KG/HR 10 mls/hr IV .Q24H [id number] Rx#: [id number] Other: # Voids 1 2 Weight 99.79 kg Results CBC & Chem 7: 10/27/22 18:25 10/27/22 18:25 Labs: Abnormal Lab Results - Last 24 Hours (Table) 10/27/22 10/28/22 10/28/22 Range/Units 18:25 01:23 06:44 APTT 43.6 H 44.0 H (22.0-30.0) sec AST 40 H (14-36) U/L
[2022-10-28] MEDS: HYDROcodone/APAP 7.5-325MG 1 EACH TAB PO PRN ×2 (14:50→21:18)
[2022-10-28 17:20] LABS: Glucose,Whole Blood 104 mg/dL (70-110)
[2022-10-28] MEDS ORDERED: HYDROcodone/APAP 5-325MG 1 EACH TAB PO SCH (21:00)
[2022-10-28] MEDS ORDERED: EZETIMIBE 10 MG TAB PO SCH (21:00)
[2022-10-28] MEDS: METOPROLOL SUCCINATE (ER) 25 MG TAB.ER.24H PO SCH (21:02)
[2022-10-28] MEDS: LORazepam 1 MG TAB PO SCH (21:02)
[2022-10-28] MEDS: ARIPiprazole 2 MG TAB PO SCH (21:02)
[2022-10-28 21:42] LABS: Glucose,Whole Blood 120 mg/dL (70-110)
[2022-10-29] MEDS: SODIUM CHLORIDE 0.9% 1,000 ML IV SCH ×2 (00:18→10:48)
[2022-10-29] MEDS: LEVOTHYROXINE 88 MCG TAB PO SCH (05:26)
[2022-10-29 06:15] LABS: Glucose,Whole Blood 95 mg/dL (70-110)
[2022-10-29] MEDS: INSULIN ASPART (NovoLOG) 100 UNIT/ML VIAL SQ SCH ×2 (06:22→12:43)
[2022-10-29 07:36] VITALS: BP 96/54; PULSE 52; RESP 16; TEMP 98.2
[2022-10-29] MEDS ORDERED: CLOPIDOGREL 75 MG TAB PO SCH (09:00)
[2022-10-29] MEDS ORDERED: ASPIRIN 81 MG PO SCH (09:00)
[2022-10-29] MEDS: PARoxetine 20 MG TAB PO SCH (09:50)
[2022-10-29] MEDS: ARIPiprazole 5 MG TAB PO SCH (09:50)
[2022-10-29] MEDS: ISOSORBIDE MONONITRATE ER 30 MG TAB.ER.24H PO SCH (09:51)
[2022-10-29] MEDS: BALSALAZIDE DISODIUM 750 MG CAPSULE PO SCH (09:51)
[2022-10-29] MEDS: METOPROLOL SUCCINATE (ER) 50 MG TAB.ER.24H PO SCH (09:52)
[2022-10-29] MEDS: HYDROcodone/APAP 7.5-325MG 1 EACH TAB PO PRN (09:58)
--- NOTE | 2022-10-29 10:24 | P.DS ---
Providers Date of admission: 10/27/22 19:18 Expected date of discharge: 10/29/22 Attending physician: Chayo Freire Consults: 10/27/22 19:16 Consult Physician Urgent Consulting Provider: Sherif Juarez Consult Reason/Comments: chest pain Do you want consulting provider notified?: Yes Primary care physician: [facility] Course: Discharge diagnoses; Chest pain Unstable angina Hypothyroidism Hypertension Hyperlipidemia [id number] diabetes mellitus Depression History of coronary artery disease Hospital course; patient is 67-year-old lady with past medical history history significant for coronary artery disease who presented to the ER because of chest pain. Patient stated that she was all right yesterday evening when she started developing central chest pain that was pressure like in nature and was relating down her back and her jaw. There was no aggravating or relieving factors associated with this chest pain. There was no associated shortness of breath. Denied any complaint of palpitation. There was no complain of swelling of feet. Patient denies any complaint of fever or chills. Patient did took some nitroglycerin that relieved her chest pain. Because of this chest pain being similar to her previous episodes of heart attack, patient was brought to the ER. Initial lab work in the ER showed WBC 6.7, hemoglobin 14.3, platelet count 220, sodium 141, potassium 4, BUN 15, creatinine 0.74 troponin was 0.012, EKG done did not show any acute segment changes, no T-wave inversion, ventricular rate of 55 bpm Patient was admitted to medicine service Cardiology evaluated The patient, took her for cardiac cath. Cath done showed Patent stent in the LAD and the diagonal branch, And moderate disease in the mid LAD with normal IFR, 0.92, Moderate disease in the proximal left circumflex with normal IFR, 1.02 Cardiology recommended to continue medical therapy, add nitrate for possible vasospastic disease. PHYSICAL EXAMINATION: GENERAL: The patient is alert and oriented x3, not in any acute distress. Well developed, well nourished. HEENT: Pupils are round and equally reacting to light. EOMI. No scleral icterus. No conjunctival pallor. Normocephalic, atraumatic. No pharyngeal erythema. No thyromegaly. CARDIOVASCULAR: S1 and S2 present. No murmurs, rubs, or gallops. PULMONARY: Chest is clear to auscultation, no wheezing or crackles. ABDOMEN: Soft, nontender, nondistended, normoactive bowel sounds. No palpable organomegaly. MUSCULOSKELETAL: No joint swelling or deformity. EXTREMITIES: No cyanosis, clubbing, or pedal edema. NEUROLOGICAL: Gross neurological examination did not reveal any focal deficits. SKIN: No rashes. Patient Condition at Discharge: Fair Plan - Discharge Summary New Discharge Prescriptions: New Isosorbide Mononitrate ER [Imdur] 30 mg PO DAILY #30 tab Continue PARoxetine HCL 60 mg PO HS LORazepam [Lorazepam] 1 mg PO DAILY Mesalamine [Lialda] 3.6 gm PO HS Aspirin 81 mg PO DAILY chew tiZANidine [Zanaflex] 2 mg PO TID PRN PRN Reason: Muscle Spasm EPINEPHrine (Auto Inject) [Epipen] 0.3 mg IM ONCE PRN PRN Reason: Anaphylaxis Nitroglycerin Sl Tabs [Nitrostat] 0.4 mg SL Q5M PRN PRN Reason: Chest Pain Ezetimibe [Zetia] 10 mg PO HS Metoprolol Succinate (ER) [Toprol XL] 25 mg PO HS Empagliflozin [Jardiance] 25 mg PO DAILY HYDROcodone/APAP 5-325MG [[place] 5-325] 1.5 tab PO BID ARIPiprazole [Abilify] 2 mg PO HS metFORMIN HCL ER [Glucophage XR] 1,000 mg PO W/SUPPER Levothyroxine Sodium [Synthroid] 88 mcg PO DAILY Clopidogrel [Plavix] 75 mg PO DAILY Metoprolol Succinate (ER) [Toprol XL] 50 mg PO DAILY ARIPiprazole [Abilify] 5 mg PO DAILY LORazepam [Ativan] 2 mg PO HS Discharge Medication List LORazepam [Lorazepam] 1 mg PO DAILY 07/01/14 [History] PARoxetine HCL 60 mg PO HS 07/01/14 [History] Mesalamine [Lialda] 3.6 gm PO HS 10/20/19 [History] Aspirin 81 mg PO DAILY chew 10/21/19 [Rx] ARIPiprazole [Abilify] 2 mg PO HS 05/03/22 [History] ARIPiprazole [Abilify] 5 mg PO DAILY 10/27/22 [History] Clopidogrel [Plavix] 75 mg PO DAILY 10/27/22 [History] EPINEPHrine (Auto Inject) [Epipen] 0.3 mg IM ONCE PRN 10/27/22 [History] Empagliflozin [Jardiance] 25 mg PO DAILY 10/27/22 [History] Ezetimibe [Zetia] 10 mg PO HS 10/27/22 [History] HYDROcodone/APAP 5-325MG [[place] 5-325] 1.5 tab PO BID 10/27/22 [History] LORazepam [Ativan] 2 mg PO HS 10/27/22 [History] Levothyroxine Sodium [Synthroid] 88 mcg PO DAILY 10/27/22 [History] Metoprolol Succinate (ER) [Toprol XL] 25 mg PO HS 10/27/22 [History] Metoprolol Succinate (ER) [Toprol XL] 50 mg PO DAILY 10/27/22 [History] Nitroglycerin Sl Tabs [Nitrostat] 0.4 mg SL Q5M PRN 10/27/22 [History] metFORMIN HCL ER [Glucophage XR] 1,000 mg PO W/SUPPER 10/27/22 [History] tiZANidine [Zanaflex] 2 mg PO TID PRN 10/27/22 [History] Isosorbide Mononitrate ER [Imdur] 30 mg PO DAILY #30 tab 10/29/22 [Rx] Follow up Appointment(s)/Referral(s): Stephen Liao DO [Primary Care Provider] - 1-2 days Tyler Cristina MD [STAFF PHYSICIAN] - 1 Week Activity/Diet/Wound Care/Special Instructions: Start metformin from 10/31/22, patient recently got cardiac cath on 10/28, needs to be off metformin for 48-72 hours Discharge Disposition: HOME SELF-CARE
--- NOTE | 2022-10-29 10:24 | PN ---
PROGRESS NOTE SUBJECTIVE: Kamini is admitted to hospital with unstable angina. Has known CAD and had prior angioplasty, underwent cardiac catheterization that did not reveal significant obstructive disease. She had patent stents within the LAD and diag and had a moderate disease in mid LAD that had a normal IFR and a moderate disease in proximal circ that also had a normal IFR and she was advised medical therapy. OBJECTIVE: GENERAL: She is comfortable at rest. VITAL SIGNS: Stable. CHEST: Reveals good air entry bilaterally. HEART: Reveals first and second heart sounds. No gallop. No murmur. ABDOMEN: Soft. EXTREMITIES: Did not reveal any edema. Peripheral pulses are felt. The radial artery access sites appear normal. She is currently on Imdur 30 mg daily, Toprol-XL, aspirin, Plavix along with Zetia, which I am going to continue. ASSESSMENT: Coronary artery disease, on medical therapy. PLAN: The patient will continue current medical therapy and will be discharged home later today. MMODL / IJN: [id number] /
[2022-10-29 12:29] LABS: Glucose,Whole Blood 90 mg/dL (70-110)
== END 2022-10-29 14:33 | disposition home or self-care (01) | DRG 287 ==
LOC: EC 17:55 → 6NMEDSUR 19:18
PROVIDERS: ADMIT Hospitalist; ATTEND Hospitalist
PROC: 4A023N7 Measurement of Cardiac Sampling and Pressure, Left Heart, Percutaneous Approach (ICD-10-PCS; principal; 2022-10-28 10:00)
PROC: B2111ZZ Fluoroscopy of Multiple Coronary Arteries using Low Osmolar Contrast (ICD-10-PCS; principal; 2022-10-28 10:00)
DX: I25.110 Atherosclerotic heart disease of native coronary artery with unstable angina pectoris (principal); K51.90 Ulcerative colitis, unspecified, without complications; Z95.5 Presence of coronary angioplasty implant and graft; E03.9 Hypothyroidism, unspecified; N18.30 Chronic kidney disease, stage 3 unspecified; M79.7 Fibromyalgia; K76.0 Fatty (change of) liver, not elsewhere classified; I25.2 Old myocardial infarction; Z79.02 Long term (current) use of antithrombotics/antiplatelets; Z79.4 Long term (current) use of insulin; Z79.82 Long term (current) use of aspirin; Z79.84 Long term (current) use of oral hypoglycemic drugs; Z79.890 Hormone replacement therapy; Z79.899 Other long term (current) drug therapy; F32.A Depression, unspecified; F43.10 Post-traumatic stress disorder, unspecified; I12.9 Hypertensive chronic kidney disease with stage 1 through stage 4 chronic kidney disease, or unspecified chronic kidney disease; E78.5 Hyperlipidemia, unspecified; E11.22 Type 2 diabetes mellitus with diabetic chronic kidney disease; Z88.0 Allergy status to penicillin; Z88.2 Allergy status to sulfonamides; Z91.030 Bee allergy status; F41.9 Anxiety disorder, unspecified
CPT/HCPCS: 36415; 80053; 80061; 83036; 83735; 84484; 85025; 85379; 85610; 85730; 93005; 93458; 93799; 94760

== ENCOUNTER → 2023-10-01 | Outpatient (CLI) | payer MEDICARE, BC, OTHER ==
[2023-10-01 13:55] VITALS: BP 126/72; PULSE 60; RESP 16; TEMP 97.9
--- NOTE | 2023-10-01 14:32 | P.SLEEP ---
History of Present Illness DATE: 10/01/2023 CONSULTATION/NEW PATIENT EVALUATION HISTORY OF PRESENT ILLNESS/SLEEP-WAKE EVALUATION: 68-year-old lady had been e valuated in the sleep center for excessive daytime sleepiness and possible obstructive sleep apnea hypopnea syndrome. SLEEP SCHEDULE: Usually sleep schedule for 7 hours during the night. FALLING ASLEEP: No problems with falling asleep. DURING SLEEP: Patient sleeps by herself, so no information about snoring. Patient wakes up from sleep once with nocturia. Positive history of nightmares. No history of hypnogogical hallucinations, sleep paralysis, or cataplexy. DURING THE DAY/WAKE STATE: Patient feels sleepiness during the day. [place] sleepiness scale is an extremely high range of 20. Patient takes 1-2 naps afternoon. PAST MEDICAL HISTORY: Coronary artery disease, status post heart attack 4 years ago, hypertension, hyperlipidemia, Thyroidism, osteoarthritis, restless leg syndrome, PTSD, depression, iron deficiency anemia in the past, diabetes mellitus, chronic disease. PAST SURGICAL HISTORY: Stent insertion to coronary arteries in 1999. MEDICATIONS: Please see below. SOCIAL HISTORY: Please see below. FAMILY HISTORY: Please see below. REVIEW OF SYSTEMS: Significant excessive daytime sleepiness and tiredness. No fevers. No double vision. No recent chest pain. No shortness of breath. No abdominal pain. No bleeding episodes. No blood in urine. No seizure episodes. PHYSICAL EXAMINATION: GENERAL: A pleasant patient without any distress. VITAL SIGNS: Please see below, weight 239 pounds, BMI 38.4. HEENT: PERRLA, EOMI. Evaluation of oropharynx showed tongue protrudes midline, low position of soft palate Mallampati 4. NECK: Supple. No JVD. Thyroid is not palpable. 15 inches in circumference. LUNGS: Clear to percussion and to auscultation. Good air exchange. No wheezing or rhonchi. HEART: S1, S2 regular. No murmurs, gallops or rubs. ABDOMEN: Soft and nontender. Bowel sounds are present. No organomegaly appreciated. EXTREMITIES: No clubbing or cyanosis. DIRECTOR FINANCIAL PLANNING: Awake, alert, and oriented x3. Cranial nerves 2 to 7 intact. There is no fasciculation or atrophy noted. No focal deficits observed. ASSESSMENT: 1. Extremely low position of soft palate Mallampati 4, awakenings from sleep, sleepiness. Obstructive sleep apnea hypopnea syndrome. 2. Significant excessive daytime sleepiness with very high [place] Sleepiness Scale of 19 dictates necessity to include idiopathic hypersomnia and narcolepsy in differential diagnosis. 3. Coronary artery disease, status post heart attack 4 years ago, status post 3 stents insertion. 4. Hypertension. 5 hyperlipidemia. 6 . Osteoarthritis. 7. Hypothyroidism. 8. Restless leg symptoms. 9 . PTSD. 10. Nightmares. 11. Depression. 12. Diabetes mellitus. 13. History of Crohn disease. 14. Obesity, BMI 38.4 PLAN: 1. Polysomnography for evaluation of patient's breathing during sleep. Multiple sleep latency test, if sleep study will be negative for obstructive sleep apnea hypopnea syndrome. 2. CPAP/BiPAP titration if sleep study confirms obstructive sleep apnea- hypopnea syndrome. 3. Preferable position during sleep on the side. 4. No driving if patient feels any sleepiness. Patient is aware of civil and criminal liability for unsafe driving. 5. Sleep hygiene with regular sleep time for at least 7.5-8 hours. 6. Watching and losing weight. Thank you very much for referring this patient for consultation. Sincerely, Arpit Linares MD, PhD, FAASM. Diplomat of [place] [employer], Sleep Medicine Board by [place] [employer] [place] [employer] Investigator [facility] Past Medical History Past Medical History: Fibromyalgia, Hyperlipidemia, Hypertension, Myocardial Infarction (DE), Osteoarthritis (OA), Renal Disease, Thyroid Disorder Additional Past Medical History / Comment(s): ULCERATIVE COLITIS,. HX of RHEUMATIC FEVER DID NOT CAUSE CARDIAC DAMAGE, DEGENERATIVE DISC DISEASE, BENIGN CYST ON KIDNEY, stage 3 CKD, fatty liver, currently on A/B for a cough, had neg. covid on 03-05-21, son who lives downstairs tested positive for covid on 02-28-21 but she denies close contact w/him, recent admission for chest pain Last Myocardial Infarction Date:: 10/19/19 History of Any Multi-Drug Resistant Organisms: None Reported Past Surgical History: Adenoidectomy, Breast Surgery, Heart Catheterization With Stent, Orthopedic Surgery, Tonsillectomy, Tubal Ligation, Uterine Ablation Additional Past Surgical History / Comment(s): COLONOSCOPY, EGD. RIGHT HAND TENDONITIS SURGERY, BENIGN RIGHT BREAST BIOPSY ROUGHLY 40 YRS AGO Past Anesthesia/Blood Transfusion Reactions: No Reported Reaction Date of Last Stent Placement:: 02/21/21 Past Psychological History: Anxiety, PTSD Additional Psychological History / Comment(s): hx of night terrors Smoking Status: Never smoker Past Alcohol Use History: None Reported Past Drug Use History: Marijuana Additional Drug Use History / Comment(s): quit smoking marijuana November 2019 - Past Family History Mother Family Medical History: Dementia, Hyperlipidemia, Hypertension Father Family Medical History: Diabetes Mellitus Additional Family Medical History / Comment(s): bipolar? Medications and Allergies Home Medications Medication Instructions Recorded Confirmed Type LORazepam [Lorazepam] 1 mg PO DAILY 07/01/14 10/01/23 History PARoxetine HCL 60 mg PO HS 07/01/14 10/01/23 History Mesalamine [Lialda] 3.6 gm PO HS 10/20/19 10/01/23 History Aspirin 81 mg PO DAILY chew 10/21/19 01/07/23 Rx ARIPiprazole [Abilify] 2 mg PO HS 05/03/22 10/01/23 History ARIPiprazole [Abilify] 5 mg PO DAILY 10/27/22 10/01/23 History Clopidogrel [Plavix] 75 mg PO DAILY 10/27/22 10/01/23 History EPINEPHrine (Auto Inject) [Epipen] 0.3 mg IM ONCE PRN 10/27/22 01/07/23 History Empagliflozin [Jardiance] 25 mg PO DAILY 10/27/22 10/01/23 History Ezetimibe [Zetia] 10 mg PO HS 10/27/22 10/01/23 History HYDROcodone/APAP 5-325MG [[place] 1.5 tab PO BID 10/27/22 10/01/23 History 5-325] LORazepam [Ativan] 2 mg PO HS 10/27/22 01/07/23 History Levothyroxine Sodium [Synthroid] 88 mcg PO DAILY 10/27/22 10/01/23 History Nitroglycerin Sl Tabs [Nitrostat] 0.4 mg SL Q5M PRN 10/27/22 01/07/23 History Metoprolol Succinate [Metoprolol 25 mg PO DAILY 12/30/22 10/01/23 History Succinate ER] Empagliflozin [Jardiance] 25 mg PO DAILY 10/01/23 10/01/23 History Pravastatin Sodium [Pravachol] 40 mg PO HS 10/01/23 10/01/23 History Allergies Allergy/AdvReac Type Severity Reaction Status Date / Time Penicillins Allergy Rash/Hives Verified 01/07/23 12:21 Sulfa (Sulfonamide Allergy Rash/Hives Verified 01/07/23 12:21 Antibiotics) venom-honey bee Allergy Anaphylaxis Verified 01/07/23 12:21 [bee venom (honey bee)] Physical Exam Vitals: Vital Signs Temp Pulse Resp BP Pulse Ox 10/01/23 13:54 97.9 F 60 16 126/72 93 L Intake and Output 09/30/23 10/01/23 10/01/23 22:59 06:59 14:59 Other: Weight 108.409 kg Sleep Note - Sleep Data ESS Total: 20 - Sleep Note Sleep Note: Temperature: 97.9 F Pulse Rate: 60 Respiratory Rate: 16 Blood Pressure: 126/72 SpO2: 93 Height: 5 ft 6 in Weight: 108.409 kg BMI: Neck Circumference: 15
== END ==
LOC: 3 N SLEEP 13:30
PROVIDERS: ATTEND Internal Medicine
DX: G47.33 Obstructive sleep apnea (adult) (pediatric) (principal); G47.10 Hypersomnia, unspecified; I25.10 Atherosclerotic heart disease of native coronary artery without angina pectoris; I10 Essential (primary) hypertension; E78.5 Hyperlipidemia, unspecified; M19.90 Unspecified osteoarthritis, unspecified site; E03.9 Hypothyroidism, unspecified; G25.81 Restless legs syndrome; F43.10 Post-traumatic stress disorder, unspecified; F51.5 Nightmare disorder; F32.A Depression, unspecified; E11.9 Type 2 diabetes mellitus without complications; E66.9 Obesity, unspecified; Z68.38 Body mass index [BMI] 38.0-38.9, adult; Z95.5 Presence of coronary angioplasty implant and graft; Z86.74 Personal history of sudden cardiac arrest; Z87.19 Personal history of other diseases of the digestive system; Z79.01 Long term (current) use of anticoagulants; Z79.85 Long-term (current) use of injectable non-insulin antidiabetic drugs; Z79.899 Other long term (current) drug therapy; Z79.02 Long term (current) use of antithrombotics/antiplatelets; Z79.890 Hormone replacement therapy; Z88.0 Allergy status to penicillin; Z88.2 Allergy status to sulfonamides; Z91.030 Bee allergy status
CPT/HCPCS: 99211

== ENCOUNTER 2023-11-12 19:28 | Outpatient (CLI) | payer MEDICARE, BC, OTHER ==
[2023-11-13 22:11] LABS: Urine Alcohol Negative (Negative); Urine Barbiturate Negative (Negative); Urine Cocaine Negative (Negative); Urine Methadone Negative (Negative); Urine Opiates Positive (Negative); Urine Phencyclidine Negative (Negative)
--- NOTE | 2023-11-20 13:53 | P.PCN ---
Description of Procedure: POLYSOMNOGRAPHY AND MSLT REPORTS. PROCEDURE(S)/DATE(S): Polysomnography 11/12/2023, multiple sleep latency test 11/13/2023 CLINICAL: Patient has been seen in the sleep center for evaluation of obstructive sleep apnea-hypopnea syndrome. Please see my consultation. Sleep study has been done for evaluation of patient breathing during the sleep. PROCEDURE: The standard montage for clinical polysomnography included the electroencephalogram, the electrooculogram, the mentalis surface el ectromyography and Lead II cardiography. The respiratory battery consisted of measurements of nasal/buccal air flow, pressure transducer measurements from nose, thoracic and/or abdominal effort and intercostal surface electromyography. Video monitoring has been done to check for any parasomnia events. Nocturnal oxyhemoglobin saturations were obtained by finger oximetry. Step-treadwell titration with positive airway pressure was utilized to control the respiratory events, if necessary. RESULTS: During the diagnostic sleep study sleep efficiency was slightly decreased to 82.8%. Latency to sleep onset was in normal range 23.0 min. Sleep architecture showed stage NI was short 5.1%, Delta sleep was acceptable range 5.0%, REM sleep was extremely short 4.1%. Respiratory channel showed 1 obstructive apneas, 0 mixed apneas, 1 central apneas, 17 hypopneas with lowest oxygen level 81%. Total apnea hypopnea index was 3.0. Heart rate was in the range between 47 and 51, average 47. EMG showed 22.0 periodic limb movements per hour with 3.0 microarousal's per hour. Multiple sleep latency test have been done on the following day, consisted from 5 naps, mean sleep latency was 8.3 minutes, 1 sleep onset REM have been documented. IMPRESSIONS: 1. No significant respiratory abnormalities have been documented during the sleep study. 2. Multiple sleep latency test confirmed sleepiness. 3. Periodic limb movements have been documented especially at the beginning of the night sleep test. Please see other impressions from consultation PLAN: 1. I will see patient for follow-up visit to explain results of the test and recommendations. 2. Losing weight program. 3. Sleep hygiene with regular time in bed for at least 7-1/2 hours. 4. No driving if feeling sleepiness. 5. Please check iron profile including ferritin level. Low level of iron may increase the risk for periodic limb movements. Thank you very much for allowing me to participate in the management of your patient. Sincerely, Arpit Linares MD, PhD, FAASM. Diplomat of [place] [employer], Sleep Medicine Board by [place] [employer] Accounting Professional [facility] [place] cc: Marci Liao DO
== END 2023-11-13 17:15 | disposition home or self-care (01) ==
LOC: 3 N SLEEP 19:28
PROVIDERS: ATTEND Internal Medicine
DX: G47.33 Obstructive sleep apnea (adult) (pediatric) (principal); G47.61 Periodic limb movement disorder; Z91.030 Bee allergy status; Z88.2 Allergy status to sulfonamides; Z88.0 Allergy status to penicillin
CPT/HCPCS: 80306; 95805; 95810